=== PATIENT | male | born 1935 | race Caucasian/White ===

== ENCOUNTER → 2016-10-06 | Outpatient (CLI) | payer BC ==
[~2016-10-06] MED LIST: ACET-1256 PO; ASPI81TA28 PO; ATOR-26 PO; AZIT250T PO; CLON0.5T3 PO; CLOP1TAB15 PO; CPR500 PO; CRG3125 PO; CRG625 PO; GLC/500 PO; LISI-461 PO; LISI-729 PO; LPT40 PO; NTRGSL/4 PO; OMEG10007 PO; PRS5 PO; SENN-61 PO; URX/10 PO
[2016-10-06 17:39] LABS: BASO % 0.3 %; BASO ABS # 0.02 K/uL (0-0.2); COMPLETE YES; EOS % 1.7 %; HEMATOCRIT 42.9 % (42-52); IG% 0.1 %; LYMPH % 32.3 %; LYMPH ABS # 2.43 K/uL (1.2-3.4); MEAN CELL VOLUME 95.3 fL (80-100); MEAN CORPUSCULAR HGB CONC 35.7 g/dl (32-36); MEAN PLATELET VOLUME 9.8 fL (7.4-10.4); MONO % 6.1 %; NEUT % 59.5 %; PLATELET COUNT 161 K/uL (130-400); WHITE BLOOD COUNT 7.53 K/uL (4.8-10.8)
[2016-10-06 18:00] LABS: ALT/SGPT 18 U/L (12-78); BLOOD UREA NITROGEN 25 mg/dl (7-18); CALCIUM 9.1 mg/dl (8.5-10.1); CARBON DIOXIDE 25 mmol/L (21-32); CHLORIDE 106 mmol/L (98-107); GLUCOSE 154 mg/dl (70-99); SODIUM 142 mmol/L (136-145)
[2016-10-06 18:08] LABS: ALB/GLOB RATIO 1.1 (0.9-2); ALKALINE PHOSPHATASE 102 U/L (45-117); AST/SGOT 15 U/L (15-37); PREALBUMIN 17.7 mg/dl (20-40)
[2016-10-07 05:58] LABS: ESTIMATED AVERAGE GLUCOSE 166 mg/dl; HA1C FLAG Normal (Normal)
--- NOTE | 2016-10-12 10:32 | CODING QUERY MEDICAL NECESSITY ---
SUPPORTING DIAGNOSIS NEEDED A supporting diagnosis is required for the test/procedure performed on this patient in order for us to be reimbursed by the patient's insurance. Please provide a supporting diagnosis for the following test/procedure listed below next to the test name along with your signature. *If there is no additional diagnosis for this patient that would support the following test/procedure please document that below next to the test/procedure. Test(s)/Procedure(s) that require a supporting diagnosis: * VITAMIN D 25-HYDROXY DIAGNOSIS: * VITAMIN B-12 LEVEL DIAGNOSIS: * DOS: 10/06/16 Provider Signature: Date: Thank you [facility] Information Management Once completed, please kindly fax back to [phone] For questions please call [phone]
== END | disposition home or self-care (01) ==
LOC: C.LABPVFM 12:03
PROVIDERS: ATTEND Family Medicine
DX: R63.0 Anorexia (principal); E11.9 Type 2 diabetes mellitus without complications; R53.83 Other fatigue; E55.9 Vitamin D deficiency, unspecified

== ENCOUNTER 2016-11-12 15:31 | Emergency (ER) | payer BC ==
[~2016-11-12] VITALS: Ht 167.6 cm; Wt 73.0 kg
[~2016-11-12 15:31] MED LIST changes: -ACET-1256 PO; -ATOR-26 PO; -AZIT250T PO; -CLON0.5T3 PO; -CLOP1TAB15 PO; -CPR500 PO; -CRG3125 PO; -LISI-729 PO; -LPT40 PO; -PRS5 PO; -SENN-61 PO; -URX/10 PO
[2016-11-12 15:34] VITALS: TEMP 37; Ht 167.6 cm; Wt 73.0 kg
[2016-11-12] MEDS ORDERED: SODIUM CHLORIDE 0.9% 500ML 500 ML IV STA (16:21)
[2016-11-12] MEDS ORDERED: URX/10 PO (16:31)
[2016-11-12 16:54] LABS: BASO % 0.3 %; BASO ABS # 0.02 K/uL (0-0.2); COMPLETE YES; EOS % 2.4 %; HEMATOCRIT 44.9 % (42-52); IG% 0.1 %; LYMPH % 16.6 %; LYMPH ABS # 1.23 K/uL (1.2-3.4); MEAN CELL VOLUME 94.9 fL (80-100); MEAN CORPUSCULAR HEMOGLOBIN 34.5 pg (25-34); MEAN CORPUSCULAR HGB CONC 36.3 g/dl (32-36); MEAN PLATELET VOLUME 9.4 fL (7.4-10.4); MONO % 9.7 %; NEUT % 70.9 %; PLATELET COUNT 147 K/uL (130-400); RED BLOOD COUNT 4.73 M/uL (4.7-6.1); WHITE BLOOD COUNT 7.42 K/uL (4.8-10.8)
[2016-11-12 17:03] LABS: PARTIAL THROMBOPLASTIN RATIO 1.1; PROTHROMBIN TIME (PATIENT) 10.7 SECONDS (9.0-12.0)
--- NOTE | 2016-11-12 17:06 | DIAGNOSTIC IMAGING REPORT ---
CHEST ONE VIEW PORTABLE CLINICAL HISTORY: cough eval for pnea dyspnea COMPARISON STUDY: 06/19/2016 FINDINGS: The bones soft tissues and hemidiaphragms are normal. The cardiomediastinal silhouette is normal. The lungs are clear. The pulmonary vasculature is normal. Prior median sternotomy IMPRESSION: Negative chest. Electronically signed by: Malik Stacy M.D. 11/12/2016 5:05 PM Dictated Date/Time: 11/12/2016 5:04 PM
[2016-11-12 17:18] LABS: BUN/CREATININE RATIO 33.2 (10-20); CALCIUM 8.8 mg/dl (8.5-10.1); CREATININE 0.89 mg/dl (0.60-1.40); POTASSIUM 3.7 mmol/L (3.5-5.1)
[2016-11-12 18:48] LABS: URINE APPEARANCE CLEAR (CLEAR); URINE COLOR DK YELLOW; URINE NITRITE NEG (NEG); URINE SPECIFIC GRAVITY 1.025 (1.000-1.030); UROBILINOGEN POS (NEG)
[2016-11-12 18:50] LABS: MANUAL MICROSCOPIC REQUIRED? NO; REVIEW REQ? NO
[2016-11-12 18:51] LABS: URINE BILIRUBIN NEG (NEG)
[2016-11-12 19:38] VITALS: BP 154/85; PULSE 73; O2SAT 96
[2016-11-12] MEDS ORDERED: AZITHROMYCIN 250 MG TAB PO STA (19:46)
[2016-11-12] MEDS ORDERED: AZIT250T PO (19:48)
--- NOTE | 2016-11-12 22:25 | EMERGENCY ROOM VISIT NOTE ---
History Report prepared by Kateryna: Joseph Anaya Under the Supervision of: Dr. Sachin Ulloa M.D. First contact with patient: 16:02 Chief Complaint: FLU LIKE SX Stated Complaint: FLU LIKE SYMPTOMS- PHYSICIAN REFERRED History of Present Illness The patient is an 80 year old male who presents to the Emergency Room with complaints of persistent flu-like symptoms for the past three days. His symptoms include cough, congestion, and rhinorrhea. His temperature was not recorded. He denies vomiting, chest pain, shortness of breath, or abdominal pain. The patient's notes that two days ago he was unable to get out of bed secondary to generalized weakness. He has some right-leg weakness chronically from a previous stroke. The patient was not urinating for two days. His states that he had not been eating or drinking anything for the past 2 days. Today he voided twice which only produced very small amounts of dark urine, as per his . The patient follows up with Dr. Smith in Urology, who referred him to the ED today. Source of History: patient, family Onset: three days ago Position: other (respiratory) Quality: other (flu-like symptoms) Timing: other (persistent) Associated Symptoms: + cough, + urinary symptoms, + weakness, No SOB, No abdominal pain, No chest pain, No fevers, No vomiting Review of Systems See HPI for pertinent positives & negatives. A total of 10 systems reviewed and were otherwise negative. Past Medical & Surgical Medical Problems: (1) CAD (coronary artery disease) (2) Chest pain (3) CVA (cerebral infarction) (4) Diabetes (5) Hyperlipidemia Family History Diabetes mellitus Hypertension Social History Smoking Status: Never Smoker Alcohol Use: none Drug Use: none Marital Status: Housing Status: lives with family Occupation Status: retired Current/Historical Medications Scheduled Alfuzosin HCl (Alfuzosin HCl ER), 10 MG PO DAILY Aspirin (Aspirin Ec), 81 MG PO DAILY Azithromycin (Zithromax), 250 MG PO DAILY Carvedilol (Carvedilol), 6.25 MG PO BID Fish Oil ([place]-3), 1 CAP PO DAILY Lisinopril (Lisinopril), 10 MG PO DAILY Metformin Hcl (Glucophage), 500 MG PO DAILY Scheduled PRN Nitroglycerin (Nitrostat), 0.4 MG PO UD PRN for Chest Pain Allergies Coded Allergies: No Known Allergies (Verified , 11/12/16) Physical Exam Vital Signs Date Time Temp Pulse Resp B/P Pulse Ox O2 Delivery O2 Flow Rate FiO2 11/12/16 19:38 73 16 154/85 96 Room Air 11/12/16 16:51 69 16 177/93 97 Room Air 11/12/16 15:52 72 11/12/16 15:34 37.0 88 18 175/95 98 Room Air Physical Exam Constitutional: Vital signs reviewed. Eyes: Pupils are equal round reactive to light. Conjunctiva are noninjected. ENT: Pharynx is clear without erythema or exudate. Mucous membranes are dry. Neck supple without meningeal signs. Respiratory: Clear to auscultation bilaterally. Breath sounds are equal bilaterally. Cardiovascular: Regular rate and rhythm. No rubs or gallops. GI: Soft, nondistended and nontender. Bowel sounds are present. Musculoskeletal: No peripheral edema. No lower extremity tenderness. Integumentary: No cyanosis. Neurological: The patient is awake and alert. Psychiatric: Normal affect. Medical Decision & Procedures ER Provider Diagnostic Interpretation: X-ray results as stated below per interpretation by me and the radiologist: CHEST ONE VIEW PORTABLE CLINICAL HISTORY: cough eval for pnea dyspnea COMPARISON STUDY: 06/19/2016 FINDINGS: The bones soft tissues and hemidiaphragms are normal. The cardiomediastinal silhouette is normal. The lungs are clear. The pulmonary vasculature is normal. Prior median sternotomy IMPRESSION: Negative chest. Electronically signed by: Malik Stacy M.D. 11/12/2016 5:05 PM Dictated Date/Time: 11/12/2016 5:04 PM Laboratory Results 11/12/16 16:35 Red Blood Count 4.73, Mean Corpuscular Volume 94.9, Mean Corpuscular Hemoglobin 34.5, Mean Corpuscular Hemoglobin Concent 36.3, Mean Platelet Volume 9.4, Neutrophils (%) (Auto) 70.9, Lymphocytes (%) (Auto) 16.6, Monocytes (%) (Auto) 9.7, Eosinophils (%) (Auto) 2.4, Basophils (%) (Auto) 0.3, Neutrophils # (Auto) 5.26, Lymphocytes # (Auto) 1.23, Monocytes # (Auto) 0.72, Eosinophils # (Auto) 0.18, Basophils # (Auto) 0.02 11/12/16 16:35 Test 11/12/16 00:00 11/12/16 16:35 11/12/16 16:41 11/12/16 16:47 Urine Color DK YELLOW Urine Appearance CLEAR (CLEAR) Urine pH 6.0 (4.5-7.5) Urine Specific [place] 1.025 (1.000-1.030) Urine Protein 2+ (NEG) Urine Glucose (UA) 3+ (NEG) Urine Ketones 1+ (NEG) Urine Occult Blood NEG (NEG) Urine Nitrite NEG (NEG) Urine Bilirubin NEG (NEG) Urine Urobilinogen POS (NEG) Urine Leukocyte Esterase NEG (NEG) Urine WBC (Auto) 1-5 /hpf (0-5) Urine RBC (Auto) 0-4 /hpf (0-4) Urine Hyaline Casts (Auto) 1-5 /lpf (0-5) Urine Epithelial Cells (Auto) 10-20 /lpf (0-5) Urine Bacteria (Auto) NEG (NEG) White Blood Count 7.42 K/uL (4.8-10.8) Red Blood Count 4.73 M/uL (4.7-6.1) Hemoglobin 16.3 g/dL (14.0-18.0) Hematocrit 44.9 % (42-52) Mean Corpuscular Volume 94.9 fL (80-100) Mean Corpuscular Hemoglobin 34.5 pg (25-34) Mean Corpuscular Hemoglobin Concent 36.3 g/dl (32-36) Platelet Count 147 K/uL (130-400) Mean Platelet Volume 9.4 fL (7.4-10.4) Neutrophils (%) (Auto) 70.9 % Lymphocytes (%) (Auto) 16.6 % Monocytes (%) (Auto) 9.7 % Eosinophils (%) (Auto) 2.4 % Basophils (%) (Auto) 0.3 % Neutrophils # (Auto) 5.26 K/uL (1.4-6.5) Lymphocytes # (Auto) 1.23 K/uL (1.2-3.4) Monocytes # (Auto) 0.72 K/uL (0.11-0.59) Eosinophils # (Auto) 0.18 K/uL (0-0.5) Basophils # (Auto) 0.02 K/uL (0-0.2) RDW Standard Deviation 45.7 fL (36.4-46.3) RDW Coefficient of Variation 13.2 % (11.5-14.5) Immature Granulocyte % (Auto) 0.1 % Immature Granulocyte # (Auto) 0.01 K/uL (0.00-0.02) Prothrombin Time 10.7 SECONDS (9.0-12.0) Prothromb Time International Ratio 1.0 (0.9-1.1) Activated Partial Thromboplast Time 29.3 SECONDS (21.0-31.0) Partial Thromboplastin Ratio 1.1 Anion Gap 9.0 mmol/L (3-11) Est Creatinine Clear Calc Drug Dose 59.7 ml/min Estimated GFR () 93.6 Estimated GFR (Non- 80.8 BUN/Creatinine Ratio 33.2 (10-20) Calcium Level 8.8 mg/dl (8.5-10.1) Total Bilirubin 2.5 mg/dl (0.2-1) Direct Bilirubin 0.4 mg/dl (0-0.2) Aspartate Amino Transf (AST/SGOT) 20 U/L (15-37) Alanine Aminotransferase (ALT/SGPT) 22 U/L (12-78) Alkaline Phosphatase 85 U/L (45-117) Total Protein 7.7 gm/dl (6.4-8.2) Albumin 3.4 gm/dl (3.4-5.0) Influenza Type A Antigen Neg for Influ A (NEG) Influenza Type B Antigen Neg for Influ B (NEG) Bedside Troponin I 0.010 ng/ml (0-0.045) Bedside Lactic Acid Venous 1.09 mmol/L (0.90-1.70) Laboratory results as reviewed by me. Medications Administered Medications (Trade) Dose Ordered Sig/Hiram Route Start Time Stop Time Status Last Admin Dose Admin Sodium Chloride (Nss 500ml) 500 ml @ 999 mls/hr Q31M STAT IV 11/12/16 16:21 11/12/16 16:51 DC 11/12/16 17:04 999 MLS/HR Azithromycin (Zithromax Tab) 500 mg NOW STAT PO 11/12/16 19:46 11/12/16 19:47 DC 11/12/16 20:01 500 MG ECG Indication: weakness Rate (beats per minute): 67 Rhythm: normal sinus Findings: no acute ischemic change, no ectopy ED Course 160: The patient was evaluated in room B3b. A complete history and physical exam was performed. 162: NSS 500 ml @ 999 mls/hr. 172: Discussed the test results with him and his family. He notes that he has not had anything to eat or drink today. 1819: Wheatley catheter placed, draining 800 CCs of dark urine. He is eating dinner now. 1944: The patient feels much better after eating and drinking. I discussed the results with him. 1945: Zithromax 500 mg PO. Medical Decision This is an 80-year-old female who presents with weakness, decreased urination and flulike symptoms. Differential diagnosis includes acute renal failure, dehydration, urinary retention, metabolic derangement, pneumonia, influenza, cardiac. I did perform a limited focused review of portions of the patient's old chart on the electronic medical record. The patient has had no recent pertinent visits to this hospital. I did evaluate the patient as noted above. The patient is presenting with flulike symptoms. He also has not been urinating for the past 2 days normally. His urine is dark but he denies any abdominal pain or pressure. He does state that he has not really been eating anything or drinking water for the past 2 days which is likely contributing to his weakness if not causing it. IV access was established. The patient was placed on a continuous residential worker. I did treat her with normal saline IV. I did order and personally review the patient's 12-lead EKG and chest x-ray as described above. There is no evidence of acute ischemia on his 12-lead EKG. His chest x-ray is negative for pneumonia. I did order and review the patient's blood work as noted in the electronic medical record. Renal function is normal. He is not anemic. His white blood cell count is not elevated. Bilirubin is slightly elevated but this has been elevated in the past. The patient was unable to urinate for us here. A bladder scan was done and he had over 700 mL of urine. A Wheatley catheter was placed and he drained approximately 800 mL of dark urine. Urinalysis does not show signs of infection. The patient was given a meal here. He ate dinner and said he felt much better. He does feel well enough to go home. I did recommend he follow up very closely with his doctor as well as his urologist for further care and evaluation. He was given return instructions as outlined below. He was given a leg bag for the Wheatley. I did treat him with Zithromax for his bronchitis. He was given a prescription for Zithromax. Impression Primary Impression: Generalized weakness Additional Impressions: Dehydration Urinary retention Bronchitis Scribe Attestation The scribe's documentation has been prepared under my direct and personally reviewed by me in its entirety. I confirm that the note above accurately reflects all work, treatment, procedures, and medical decision making performed by me. Departure Information Dispostion Home / Self-Care Prescriptions Azithromycin (Zithromax) 250 Mg Tab 250 MG PO DAILY, #4 TAB Prov: Sachin Ulloa M.D. 11/12/16 Referrals Juventino Spencer M.D. (PCP) Forms HOME CARE DOCUMENTATION FORM, IMPORTANT VISIT INFORMATION Patient Instructions Dehydration, ED Bronchitis Abx Tx, ED Retention Urinary Male, My [facility] Additional Instructions You have been examined and treated today on an emergency basis only. This is not a substitute for, or an effort to provide, complete comprehensive medical care. It is impossible to recognize and treat all injuries or illnesses in a single emergency department visit. It is therefore important that you follow up closely with your physician and urologist next week. Call as soon as possible for an appointment. Return for worsening symptoms or if you develop fever, vomiting, chest pain, shortness of breath, abdominal pain, back pain or any other concerning symptoms. Problem Qualifiers
== END 2016-11-12 20:05 | disposition home or self-care (01) ==
LOC: C.EDB 15:32
DX: R53.1 Weakness (principal); E86.0 Dehydration; R33.9 Retention of urine, unspecified; J40 Bronchitis, not specified as acute or chronic; I25.10 Atherosclerotic heart disease of native coronary artery without angina pectoris; E78.5 Hyperlipidemia, unspecified; E11.9 Type 2 diabetes mellitus without complications; Z86.73 Personal history of transient ischemic attack (TIA), and cerebral infarction without residual deficits; Z79.82 Long term (current) use of aspirin; Z79.84 Long term (current) use of oral hypoglycemic drugs; Z79.899 Other long term (current) drug therapy; Z83.3 Family history of diabetes mellitus; Z82.49 Family history of ischemic heart disease and other diseases of the circulatory system

== ENCOUNTER 2016-12-14 22:08 | Inpatient (IN) | payer BC, OTHER ==
[~2016-12-14] VITALS: Ht 182.9 cm; Wt 72.0 kg
[~2016-12-14 22:08] MED LIST changes: +AZIT250T PO; +URX/10 PO
[2016-12-14] MEDS ORDERED: SODIUM CHLORIDE 0.9% 1000ML 1,000 ML IV STA (23:12)
[2016-12-14] MEDS ORDERED: SODIUM CHLORIDE 0.9% 500ML 500 ML IV STA (23:12)
--- NOTE | 2016-12-14 23:21 | EMERGENCY ROOM VISIT NOTE ---
History Report prepared by Kateryna: William Rogers Under the Supervision of: Dr. Chuyita Childs M.D. First contact with patient: 23:05 Chief Complaint: WEAKNESS Stated Complaint: COULD NOT FOCUS,VERY WEAK Nursing Triage Summary: spouse reports pt has been increasingly tired and weak all day, decreased po intake for several days , denies NVD , pt able to move all extremities , speech clear and appropriate History of Present Illness The patient is an 80 year old male who presents to the Emergency Room due to a worsening altered mental status that the family first started to notice yesterday, one day prior to arrival. The patient states that he "thought he was having a stroke" today because he was not able to focus on anything. Per the patient's the patient did not sleep last night and was becoming increasingly weak and confused throughout the day today. At 1400 this afternoon the patient sat down at the table to eat and was not able to locate the plate and feed himself. The patient's son also notes noticing that he was not able to get around the house as he normally would. The patient normally walks with a walker, but he was having worsening difficulty ambulating today and was becoming confused trying to make his way around the rooms of his home. His speech did seem clear for most of the day. He never made any complaints of chest pain or shortness of breath. The patient had a prior stroke in 2014 which debilitated his right side. He is also a type II diabetic. He currently has a Wheatley catheter placed. 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 A total of 10 systems reviewed and were otherwise negative. Past Medical & Surgical Medical Problems: (1) CAD (coronary artery disease) (2) Chest pain (3) Confusion (4) CVA (cerebral infarction) (5) Diabetes (6) Hyperlipidemia Family History Diabetes mellitus Hypertension Social History Smoking Status: Never Smoker Alcohol Use: none Drug Use: none Marital Status: Housing Status: lives with family Occupation Status: retired Current/Historical Medications Scheduled Aspirin (Aspirin Ec), 81 MG PO DAILY Carvedilol (Carvedilol), 6.25 MG PO BID Finasteride (Finasteride), 5 MG PO DAILY Fish Oil ([place]-3), 1 CAP PO DAILY Lisinopril (Lisinopril), 10 MG PO DAILY Metformin Hcl (Glucophage), 500 MG PO DAILY Scheduled PRN Nitroglycerin (Nitrostat), 0.4 MG PO UD PRN for Chest Pain Allergies Coded Allergies: No Known Allergies (Verified , 12/15/16) Physical Exam Vital Signs Date Time Temp Pulse Resp B/P Pulse Ox O2 Delivery O2 Flow Rate FiO2 12/15/16 01:18 53 14 152/68 100 Room Air 12/14/16 23:30 56 23 170/83 96 Room Air 12/14/16 22:31 63 12/14/16 22:13 36.4 72 19 149/82 97 Room Air Physical Exam Vital signs reviewed. General: Well-appearing elderly male, in no significant distress. Minimally verbal but responsive, follows commands. HEENT: No scleral icterus, PERRLA, neck supple. Atraumatic. Cardiovascular: Systolic ejection murmur Regular rate and rhythm, no extra sounds. Pulmonary: Clear to auscultation bilaterally, normal work of breathing. Abdomen: Soft, nontender, nondistended, positive bowel sounds. Musculoskeletal: Atraumatic, no peripheral edema. Weakness or right lower extremity. Neurologic: Patient awake alert and oriented x 3, full strength in all 4 extremities. Cranial nerves 2 through 12 grossly intact. Skin: Warm, dry, no rash : Wheatley catheter in place. Medical Decision & Procedures ER Provider Diagnostic Interpretation: Radiology results as stated below per my review and radiologist interpretation: CT HEAD: No acute intracranial process. Involutional changes, small vessel disease and multifocal regions or encephalomalacia from prior insults. Radiologist: Loy Brower M.D. Study Ready at 00:16 and initial results transmitted at 00:20. CHEST X-RAY: Post surgical changes, no consolidation, no free air. Laboratory Results Test 12/14/16 22:30 12/14/16 23:28 12/14/16 23:44 12/15/16 00:30 Immature Granulocyte % (Auto) 0.1 % White Blood Count 8.79 K/uL (4.8-10.8) Red Blood Count 4.48 M/uL (4.7-6.1) Hemoglobin 15.2 g/dL (14.0-18.0) Hematocrit 42.7 % (42-52) Mean Corpuscular Volume 95.3 fL (80-100) Mean Corpuscular Hemoglobin 33.9 pg (25-34) Mean Corpuscular Hemoglobin Concent 35.6 g/dl (32-36) Platelet Count 155 K/uL (130-400) Mean Platelet Volume 8.7 fL (7.4-10.4) Neutrophils (%) (Auto) 73.9 % Lymphocytes (%) (Auto) 17.9 % Monocytes (%) (Auto) 5.3 % Eosinophils (%) (Auto) 2.6 % Basophils (%) (Auto) 0.2 % Neutrophils # (Auto) 6.49 K/uL (1.4-6.5) Lymphocytes # (Auto) 1.57 K/uL (1.2-3.4) Monocytes # (Auto) 0.47 K/uL (0.11-0.59) Eosinophils # (Auto) 0.23 K/uL (0-0.5) Basophils # (Auto) 0.02 K/uL (0-0.2) Immature Granulocyte # (Auto) 0.01 K/uL (0.00-0.02) Prothrombin Time 10.5 SECONDS (9.0-12.0) Prothromb Time International Ratio 1.0 (0.9-1.1) Activated Partial Thromboplast Time 28.2 SECONDS (21.0-31.0) Partial Thromboplastin Ratio 1.1 Magnesium Level 2.2 mg/dl (1.8-2.4) Total Bilirubin 1.5 mg/dl (0.2-1) Direct Bilirubin 0.2 mg/dl (0-0.2) Aspartate Amino Transf (AST/SGOT) 14 U/L (15-37) Alanine Aminotransferase (ALT/SGPT) 20 U/L (12-78) Alkaline Phosphatase 111 U/L (45-117) Total Creatine Kinase 79 U/L (39-308) Creatine Kinase MB 1.5 ng/ml (0.5-3.6) Creatine Kinase MB Ratio 1.9 (0-3.0) Total Protein 7.4 gm/dl (6.4-8.2) Albumin 3.5 gm/dl (3.4-5.0) Bedside Troponin I 0.000 ng/ml (0-0.045) Bedside Lactic Acid Venous 1.23 mmol/L (0.90-1.70) Urine Color DK YELLOW Urine Appearance TURBID (CLEAR) Urine pH 5.5 (4.5-7.5) Urine Specific [place] 1.023 (1.000-1.030) Urine Protein 2+ (NEG) Urine Glucose (UA) 1+ (NEG) Urine Ketones TRACE (NEG) Urine Occult Blood 3+ (NEG) Urine Nitrite POS (NEG) Urine Bilirubin NEG (NEG) Urine Urobilinogen NEG (NEG) Urine Leukocyte Esterase LARGE (NEG) Urine WBC (Auto) >30 /hpf (0-5) Urine RBC (Auto) 10-30 /hpf (0-4) Urine Hyaline Casts (Auto) 1-5 /lpf (0-5) Urine Epithelial Cells (Auto) 5-10 /lpf (0-5) Urine Bacteria (Auto) 3+ (NEG) Urine Yeast (Auto) (NONE PRSENT) Laboratory results per my review. Medications Administered Medications (Trade) Dose Ordered Sig/Hiram Route Start Time Stop Time Status Last Admin Dose Admin Sodium Chloride 500 ml @ 999 mls/hr Q31M STAT IV 12/14/16 23:12 12/14/16 23:42 DC 12/14/16 23:39 999 MLS/HR Sodium Chloride (Nss 1000ml) 1,000 ml @ 125 mls/hr Q8H STAT IV 12/14/16 23:12 12/15/16 03:03 DC 12/14/16 23:39 125 MLS/HR Piperacillin Sod/ Tazobactam Sod (Zosyn Iv) 4.5 gm NOW STAT IV 12/15/16 01:17 12/15/16 01:18 DC 12/15/16 01:21 4.5 GM ECG Indication: altered mental status Rate (beats per minute): 64 Rhythm: normal sinus Findings: no acute ischemic change, no ectopy, other (Poor Quality baseline) ED Course 2307: Past medical records reviewed. The patient was evaluated in room B2. A complete history and physical examination was performed. 2312: Ordered Sodium Chloride 1000 mL @ 125 mL/hr IV, Sodium Chloride 500 mL @ 999 mL/hr IV. 0117: Ordered Zosyn 4.5 gm IV. 0126: I placed a page for the [facility] Hospitalist at this time. 0210: I discussed the case with Dr. Aga [facility] at this time , he will evaluate the patient for further treatment. 0214: I checked on the patient at this time. He was doing well. Medical Decision Differential diagnosis: Etiologies such as metabolic, infection, hypoglycemia, electrolyte abnormalities , cardiac sources, intracerebral event, toxicologic, neurologic, as well as others were entertained. This patient was evaluated and appeared to be in no significant distress. IV access was obtained and laboratory work was drawn. The patient was placed on the vehicle monitor technician and found to be in a normal sinus rhythm. Patient's vital signs have remained stable. Laboratory work reveals a normal white blood cell count, normal renal function and a positive urinalysis. This will be sent for culture. Patient's lactate is normal. Head CT reveals old injury, no evidence of acute abnormality. Patient was medicated with IV Zosyn. Case was discussed with the hospitalist service. They will evaluate the patient for further management. Consults Time Called: 0126 Consulting Physician: Dr. Aga [facility] Returned Call: 0210 I discussed the case with Dr. Aga [facility] at this time, he will evaluate the patient for further treatment. Impression Primary Impression: Altered mental status Additional Impression: UTI (urinary tract infection) Scribe Attestation The scribe's documentation has been prepared under my direction and personally reviewed by me in its entirety. I confirm that the note above accurately reflects all work, treatment, procedures, and medical decision making performed by me. Departure Information Dispostion Being Evaluated By Hospitalist Referrals Juventino Spencer M.D. (PCP) Patient Instructions My [facility] Problem Qualifiers
[2016-12-14 23:23] LABS: BASO % 0.2 %; BASO ABS # 0.02 K/uL (0-0.2); COMPLETE YES; EOS % 2.6 %; HEMATOCRIT 42.7 % (42-52); IG% 0.1 %; LYMPH % 17.9 %; LYMPH ABS # 1.57 K/uL (1.2-3.4); MEAN CELL VOLUME 95.3 fL (80-100); MEAN CORPUSCULAR HEMOGLOBIN 33.9 pg (25-34); MEAN CORPUSCULAR HGB CONC 35.6 g/dl (32-36); MEAN PLATELET VOLUME 8.7 fL (7.4-10.4); MONO % 5.3 %; NEUT % 73.9 %; PLATELET COUNT 155 K/uL (130-400); RED BLOOD COUNT 4.48 M/uL (4.7-6.1); WHITE BLOOD COUNT 8.79 K/uL (4.8-10.8)
[2016-12-14 23:33] LABS: PARTIAL THROMBOPLASTIN RATIO 1.1; PROTHROMBIN TIME (PATIENT) 10.5 SECONDS (9.0-12.0)
[2016-12-14 23:35] LABS: BUN/CREATININE RATIO 24.6 (10-20); CALCIUM 9.1 mg/dl (8.5-10.1); CREATININE 1.1 mg/dl (0.60-1.40); MAGNESIUM 2.2 mg/dl (1.8-2.4); POTASSIUM 3.9 mmol/L (3.5-5.1)
[2016-12-14 23:40] LABS: CKMB/CK RATIO 1.9 (0-3.0)
[2016-12-15] VITALS (7 sets, daily range): BP systolic 96–179; BP diastolic 61–91; PULSE 56–64; TEMP 36.5–37.2; O2SAT 93–97; Ht 182.9 cm; Wt 72.0 kg
[2016-12-15 00:48] LABS: URINE APPEARANCE TURBID (CLEAR); URINE BILIRUBIN NEG (NEG); URINE COLOR DK YELLOW; URINE NITRITE POS (NEG); URINE PH 5.5 (4.5-7.5); URINE SPECIFIC GRAVITY 1.023 (1.000-1.030); UROBILINOGEN NEG (NEG); ZZURINE CULT IF INDIC CATH YES
[2016-12-15 01:02] LABS: MANUAL MICROSCOPIC REQUIRED? NO; REVIEW REQ? YES
[2016-12-15] MEDS ORDERED: PIPERACILLIN/TAZOBACTAM 4.5 GM/100ML D5W IV STA (01:17)
[2016-12-15] MEDS ORDERED: PRS5 PO (01:26)
--- NOTE | 2016-12-15 02:10 | History and Physical ---
History & Physical Date & Time of Service: Dec 15, 2016 at 02:09 Chief Complaint: Could Not Focus,Very Weak Primary Care Physician: Juventino Spencer M.D. History of Present Illness Source: patient, spouse 80-year-old male with past medical history of diabetes, hypertension, stroke in 2015, BPH , coronary artery disease presented with altered mental status since 1 day prior to arrival. His family was concerned that he was having a stroke as he seemed to be very weak and confused. Per his he had not slept well and had been more confused today. The patient complained of feeling very fatigued but denied any chest pain, shortness of breath, palpitations, dizziness, headache injury. He denied any dysuria, hematuria but he stated that he had increased frequency and was recently started on medication for an enlarged prostate. He denied any nausea, vomiting, abdominal pain, diarrhea, fevers or chills but had some back pain. Denied any history of kidney stones. He has a history of stroke in 2014 . Past Medical/Surgical History Medical Problems: (1) CAD (coronary artery disease) Status: Chronic (2) CVA (cerebral infarction) Status: Chronic (3) Diabetes Status: Chronic (4) Hyperlipidemia Status: Chronic Family History Diabetes mellitus Hypertension Social History Smoking Status: Never Smoker Drug Use: none Marital Status: Occupational Status: retired Immunizations History of Influenza Vaccine: Yes Influenza Vaccine Date: Jun 05, 2008 History of Tetanus Vaccine?: Yes Tetanus Immunization Date: Aug 05, 2005 History of Pneumococcal: Yes History of Hepatitis B Vaccine: No Multi-Drug Resistant Organisms History of MDRO: No Allergies Coded Allergies: No Known Allergies (Verified , 12/15/16) Home Medications Scheduled Aspirin (Aspirin Ec), 81 MG PO DAILY Carvedilol (Carvedilol), 6.25 MG PO BID Finasteride (Finasteride), 5 MG PO DAILY Fish Oil (Dema-3), 1 CAP PO DAILY Lisinopril (Lisinopril), 10 MG PO DAILY Metformin Hcl (Glucophage), 500 MG PO DAILY Scheduled PRN Nitroglycerin (Nitrostat), 0.4 MG PO UD PRN for Chest Pain Review of Systems Constitutional: + weakness, No chills, No fever Eyes: No worsening of vision ENT: No hearing loss Respiratory: No cough, No dyspnea on exertion, No shortness of breath Cardiovascular: No chest pain Abdomen: No constipation, No diarrhea, No nausea, No pain, No vomiting Musculoskeletal: No swelling Genitourinary - Male: + urinary frequency, No dysuria, No hematuria Neurologic: No memory loss Psychiatric: No depression symptoms Physical Exam Vital Signs Date Time Temp Pulse Resp B/P Pulse Ox O2 Delivery O2 Flow Rate FiO2 12/15/16 02:08 65 12/15/16 01:18 53 14 152/68 100 Room Air 12/14/16 23:30 56 23 170/83 96 Room Air 12/14/16 22:31 63 12/14/16 22:13 36.4 72 19 149/82 97 Room Air General Appearance: WD/WN, no apparent distress Head: normocephalic Eyes: normal inspection ENT: hearing grossly normal Neck: supple Respiratory/Chest: chest non-tender, lungs clear, normal breath sounds, no respiratory distress, no accessory muscle use Cardiovascular: regular rate, rhythm, + systolic murmur Abdomen/GI: normal bowel sounds, soft, + tenderness (suprapubic) Back: no CVA tenderness Extremities/Musculoskelatal: no pedal edema, normal range of motion Neurologic/Psych: alert, normal mood/affect, oriented x 3 Skin: normal color Diagnostics Laboratory Results Results Past 24 Hours Test 12/14/16 22:30 12/14/16 22:43 12/14/16 23:23 12/14/16 23:28 Range/Units White Blood Count 8.79 4.8-10.8 K/uL Red Blood Count 4.48 4.7-6.1 M/uL Hemoglobin 15.2 14.0-18.0 g/dL Hematocrit 42.7 42-52 % Mean Corpuscular Volume 95.3 80-100 fL Mean Corpuscular Hemoglobin 33.9 25-34 pg Mean Corpuscular Hemoglobin Concent 35.6 32-36 g/dl Platelet Count 155 130-400 K/uL Mean Platelet Volume 8.7 7.4-10.4 fL Neutrophils (%) (Auto) 73.9 % Lymphocytes (%) (Auto) 17.9 % Monocytes (%) (Auto) 5.3 % Eosinophils (%) (Auto) 2.6 % Basophils (%) (Auto) 0.2 % Neutrophils # (Auto) 6.49 1.4-6.5 K/uL Lymphocytes # (Auto) 1.57 1.2-3.4 K/uL Monocytes # (Auto) 0.47 0.11-0.59 K/uL Eosinophils # (Auto) 0.23 0-0.5 K/uL Basophils # (Auto) 0.02 0-0.2 K/uL RDW Standard Deviation 47.2 36.4-46.3 fL RDW Coefficient of Variation 13.6 11.5-14.5 % Immature Granulocyte % (Auto) 0.1 % Immature Granulocyte # (Auto) 0.01 0.00-0.02 K/uL Prothrombin Time 10.5 9.0-12.0 SECONDS Prothromb Time International Ratio 1.0 0.9-1.1 Activated Partial Thromboplast Time 28.2 21.0-31.0 SECONDS Partial Thromboplastin Ratio 1.1 Sodium Level 141 136-145 mmol/L Potassium Level 3.9 3.5-5.1 mmol/L Chloride Level 105 98-107 mmol/L Carbon Dioxide Level 29 21-32 mmol/L Anion Gap 7.0 3-11 mmol/L Blood Urea Nitrogen 27 7-18 mg/dl Creatinine 1.10 0.60-1.40 mg/dl Est Creatinine Clear Calc Drug Dose 48.3 ml/min Estimated GFR () 73.1 Estimated GFR (Non- 63.1 BUN/Creatinine Ratio 24.6 10-20 Random Glucose 223 70-99 mg/dl Calcium Level 9.1 8.5-10.1 mg/dl Magnesium Level 2.2 1.8-2.4 mg/dl Total Bilirubin 1.5 0.2-1 mg/dl Direct Bilirubin 0.2 0-0.2 mg/dl Aspartate Amino Transf (AST/SGOT) 14 15-37 U/L Alanine Aminotransferase (ALT/SGPT) 20 12-78 U/L Alkaline Phosphatase 111 45-117 U/L Total Creatine Kinase 79 39-308 U/L Creatine Kinase MB 1.5 0.5-3.6 ng/ml Creatine Kinase MB Ratio 1.9 0-3.0 Total Protein 7.4 6.4-8.2 gm/dl Albumin 3.5 3.4-5.0 gm/dl Bedside Glucose 207 181 70-99 mg/dl Bedside Troponin I 0.000 0-0.045 ng/ml Test 12/14/16 23:44 4/19/17 00:30 Range/Units Bedside Lactic Acid Venous 1.23 0.90-1.70 mmol/L Urine Color DK YELLOW Urine Appearance TURBID CLEAR Urine pH 5.5 4.5-7.5 Urine Specific [place] 1.023 1.000-1.030 Urine Protein 2+ NEG Urine Glucose (UA) 1+ NEG Urine Ketones TRACE NEG Urine Occult Blood 3+ NEG Urine Nitrite POS NEG Urine Bilirubin NEG NEG Urine Urobilinogen NEG NEG Urine Leukocyte Esterase LARGE NEG Urine WBC (Auto) >30 0-5 /hpf Urine RBC (Auto) 10-30 0-4 /hpf Urine Hyaline Casts (Auto) 1-5 0-5 /lpf Urine Epithelial Cells (Auto) 5-10 0-5 /lpf Urine Bacteria (Auto) 3+ NEG Urine Yeast (Auto) NONE PRSENT Microbiology Results 12/14/16 Blood Culture, Received Pending 12/14/16 Blood Culture, Received Pending 12/15/16 Urine Culture, Received Pending Diagnostic Radiology Head CT: No acute intracranial process. Involutional changes, small vessel disease and multifocal regions or encephalomalacia from prior insults. Radiologist: Loy Brower M.D. EKG Normal sinus rhythm, 64 bpm Impression Assessment and Plan 80-year-old male with past medical history of diabetes, hypertension, stroke in 2015, BPH , coronary artery disease presented with altered mental status since 1 day prior to arrival. Altered mental status: Likely secondary to urinary tract infection -Head CT: Negative for any acute changes -Electrolytes within normal limits - Blood sugar slightly elevated at 181 - EKG within normal limits, troponin negative - UA positive for 3+ occult blood, positive nitrite, large leuk esterase and 3+ bacteria Completed UTI -UA positive for 3+ occult blood, positive nitrite, large leuk esterase and 3+ bacteria -Urine culture, blood culture pending -Received Zosyn in the ER - IV Rocephin every 24 hours - Continue IV fluids Type 2 diabetes Hold metformin -Insulin sliding scale Hypertension -Continue lisinopril History of stroke/CAD Continue aspirin, carvedilol BPH -Continue finasteride Wheatley in place DVT prophylaxis -Lovenox Full code Disposition-admitted to [facility] Level of Care Med/Surg Advanced Directives Existing Living Will: No Resuscitation Status FULL RESUSCITATION VTE Prophylaxis VTE Risk Assessment Done? Y/N: Yes Risk Level: Moderate Given or contraindicated: Enoxaparin (Lovenox)SQ Resident Tracking Resident Involvement: Resident Care Provided Care Provided: Adult [facility] Medicine Assessment and Plan Attending Addendum: I have physically seen and examined this patient, have directed their medical care, have supervised the medical residents activities, and agree with the H&P as noted above, with the following changes: NONE
[2016-12-15] MEDS ORDERED: ALUMINUM/MAGNESIUM/SIMETH (MAALOX MAX) 30 ML UDC PO PRN (02:15)
[2016-12-15] MEDS ORDERED: ONDANSETRON INJ 2 MG/ML 2 ML VIAL IV PRN (02:15)
[2016-12-15] MEDS ORDERED: POLYETHYLENE (MIRALAX) 17 GM PACK PO PRN (02:15)
[2016-12-15] MEDS ORDERED: ACETAMINOPHEN 325 MG TAB PO PRN (02:15)
[2016-12-15] MEDS ORDERED: MAGNESIUM HYDROXIDE SUSP 30 ML UDC PO PRN (02:15)
[2016-12-15] MEDS: SODIUM CHLORIDE 0.9% 1000ML 1,000 ML IV SCH ×3 (03:28→19:37)
[2016-12-15] MEDS ORDERED: GLUCAGON FOR INJ 1 MG VIAL SQ PRN (04:00)
[2016-12-15] MEDS ORDERED: GLUCOSE 40% GEL 15 GM TUBE PO PRN (04:00)
[2016-12-15] MEDS ORDERED: DEXTROSE 50% 50 ML SYR IV PRN (04:00)
[2016-12-15] MEDS ORDERED: GLUCOSE 10 TABS/TUBE PO PRN (04:00)
[2016-12-15] MEDS: CEFTRIAXONE SOD INJ 1 GM in DEXTROSE 5% ADD-VANTAGE 50ML 50 ML IV SCH (04:22)
[2016-12-15] MEDS: INSULIN ASPART 100 UNITS/ML 3 ML PEN SC SCH ×4 (06:30→21:00)
--- NOTE | 2016-12-15 06:36 | DIAGNOSTIC IMAGING REPORT ---
CT HEAD WITHOUT CONTRAST (CT) CLINICAL HISTORY: Acute change in mental status. Weakness. COMPARISON STUDY: 06/19/2016 TECHNIQUE: Axial CT of the brain is performed from the vertex to the skull base. IV contrast was not administered for this examination. CT DOSE: 537.48 mGy.cm FINDINGS: No intra or extra-axial mass lesions are visualized. There is no CT evidence of acute cortical infarction. There is no evidence of midline shift. There is no acute hemorrhage. No calvarial fractures are visualized. There are patchy white matter hypodensities likely on a small vessel basis. There is a right frontal lobe infarct which has developed since the preceding study. This does not appear acute. Since the prior study, the patient has also developed a left occipital infarct. Again this does not appear acute. There is no evidence of pathologic ventricular dilatation. There is no evidence of acute sinusitis IMPRESSION: 1. Chronic bilateral infarcts which have appeared since the preceding study 2. No acute intracranial findings Electronically signed by: Jeb Joshua M.D. 12/15/2016 6:33 AM Dictated Date/Time: 12/15/2016 6:31 AM
--- NOTE | 2016-12-15 07:39 | DIAGNOSTIC IMAGING REPORT ---
CHEST ONE VIEW PORTABLE HISTORY: Altered mental status. COMPARISON: Chest 11/12/2016. FINDINGS: No focal lung consolidations to suggest pneumonia. No evidence for pulmonary edema. No pleural effusions. No pneumothorax. The heart is stable in size. Mildly tortuous thoracic aorta, unchanged. There are poststernotomy changes. IMPRESSION: No significant change compared to the prior study. No acute process. Electronically signed by: Markie Birmingham M.D. 12/15/2016 7:37 AM Dictated Date/Time: 12/15/2016 7:36 AM
[2016-12-15 07:57] LABS: HEMATOCRIT 38.1 % (42-52); MEAN CELL VOLUME 94.5 fL (80-100); MEAN CORPUSCULAR HGB CONC 34.9 g/dl (32-36); MEAN PLATELET VOLUME 8.2 fL (7.4-10.4); PLATELET COUNT 137 K/uL (130-400); RED BLOOD COUNT 4.03 M/uL (4.7-6.1); WHITE BLOOD COUNT 8.42 K/uL (4.8-10.8)
[2016-12-15 08:20] LABS: CALCIUM 8.3 mg/dl (8.5-10.1)
[2016-12-15] MEDS: ENOXAPARIN 40 MG/0.4 ML SYR SQ SCH (08:32)
[2016-12-15] MEDS: LISINOPRIL 10 MG TAB PO SCH (08:33)
[2016-12-15] MEDS: FINASTERIDE 5 MG TAB PO SCH (08:33)
[2016-12-15] MEDS: ASPIRIN 81 MG ECTAB PO SCH (08:34)
[2016-12-15] MEDS: CARVEDILOL 6.25 MG TAB PO SCH ×2 (08:34→19:42)
[2016-12-15 09:09] LABS: CREATININE 0.84 mg/dl (0.60-1.40); POTASSIUM 3.3 mmol/L (3.5-5.1)
--- NOTE | 2016-12-15 11:26 | Hospitalist Progress Note ---
Hospitalist Progress Note Date of Service Dec 15, 2016. (Jocelyn Perez ., PA-C) Subjective Pt evaluation today including: conversation w/ patient, physical exam, chart review, lab review, review of studies, review of inpatient medication list Voiding: ferguson catheter in place Patient states he is feeling well. He admits to confusion at admission. He is alert/oriented x3. He states he has confusion at baseline, but has been worsening over the last week or so. Patient denies any fever, chills, sweats, lightheadedness, dizziness, vision changes, CP, palpitations, edema, SOB, wheezing, cough, abdominal pain, nausea, vomiting, diarrhea, urinary symptoms, melena, numbness/tingling, weakness, muscle/joint pain, anxiety/depression, active bleeding, or new skin discoloration/changes. Spoke w/ , patient is currently still confused. She denies confusion at baseline- pt became acutely confused last PM. Has indwelling Ferguson- Patient is following w/ Dr. Tee- scheduled follow-up the beginning of December to d/c Dioni. (Jocelyn Perez ., PA-C) Medications Current Inpatient Medications Medications (Trade) Dose Ordered Sig/Hiram Route Start Time Stop Time Status Last Admin Dose Admin Enoxaparin Sodium (Lovenox Inj) 40 mg Q24H SQ 12/15/16 09:00 01/14/17 08:59 12/15/16 08:32 40 MG Acetaminophen (Tylenol Tab) 650 mg Q4H PRN PO 12/15/16 02:15 01/14/17 02:14 Al Hydrox/Mg Hydrox/Simethicone (Maalox Max Susp) 15 ml Q4H PRN PO 12/15/16 02:15 01/14/17 02:14 Magnesium Hydroxide (Milk Of Magnesia Susp) 30 ml Q6H PRN PO 12/15/16 02:15 01/14/17 02:14 Polyethylene (Miralax Powder Packet) 17 gm DAILY PRN PO 12/15/16 02:15 01/14/17 02:14 Ondansetron HCl (Zofran Inj) 4 mg Q6H PRN IV 12/15/16 02:15 01/14/17 02:14 Aspirin (Ecotrin Tab) 81 mg DAILY PO 12/15/16 08:00 01/14/17 08:59 12/15/16 08:34 81 MG Carvedilol (Coreg Tab) 6.25 mg BID PO 12/15/16 08:00 01/14/17 08:59 12/15/16 08:34 6.25 MG Finasteride (Proscar Tab) 5 mg DAILY PO 12/15/16 08:00 01/14/17 08:59 12/15/16 08:33 5 MG Lisinopril 10 mg 10 mg DAILY PO 12/15/16 08:00 01/14/17 08:59 12/15/16 08:33 10 MG Sodium Chloride 1,000 ml @ 125 mls/hr Q8H IV 12/15/16 03:00 01/14/17 02:59 12/15/16 10:42 125 MLS/HR Ceftriaxone Sodium/Dextrose (Rocephin Inj/ Dextrose Add-[place] 50ML) 50 ml @ 100 mls/hr Q24H IV 12/15/16 04:00 12/25/16 03:59 12/15/16 04:22 100 MLS/HR Insulin Aspart (novoLOG ASPART) SLIDING SCALE G... ACHS SC 12/15/16 06:30 01/14/17 06:29 Glucose (Glucose 40% Gel) 15-30 GRAMS 15 GRAMS... UD PRN PO 12/15/16 04:00 01/14/17 03:59 Glucose (Glucose Chew Tab) 4-8 Tablets 4 Tabl... UD PRN PO 12/15/16 04:00 01/14/17 03:59 Dextrose (Dextrose 50% 50ML Syringe) 25-50ML OF 50% DW IV FOR... UD PRN IV 12/15/16 04:00 01/14/17 03:59 Glucagon (Glucagon Inj) 1 mg UD PRN SQ 12/15/16 04:00 01/14/17 03:59 (Jocelyn Perez PA-C) Objective Vital Signs Date Time Temp Pulse Resp B/P Pulse Ox O2 Delivery O2 Flow Rate FiO2 12/15/16 08:30 62 12/15/16 07:06 36.5 58 18 170/78 97 Room Air 12/15/16 03:35 37.2 56 18 175/69 97 Room Air 12/15/16 02:44 50 22 155/83 97 12/15/16 02:29 50 22 155/83 97 Room Air 12/15/16 02:08 65 12/15/16 01:18 53 14 152/68 100 Room Air 12/14/16 23:30 56 23 170/83 96 Room Air 12/14/16 22:31 63 12/14/16 22:13 36.4 72 19 149/82 97 Room Air (Jocelyn Perez PA-C) Physical Exam General Appearance: no apparent distress Eyes: normal inspection, PERRL ENT: hearing grossly normal Neck: supple Respiratory/Chest: lungs clear, no respiratory distress, no accessory muscle use Cardiovascular: regular rate, rhythm, + systolic murmur Abdomen: normal bowel sounds, non tender, soft Extremities: no pedal edema, no calf tenderness Neurologic/Psychiatric: alert, normal mood/affect, oriented x 3 Skin: normal color, warm/dry, no rash (Jocelyn Perez, BETET-C) Laboratory Results Last 24 Hours Test 12/14/16 22:30 12/14/16 22:43 12/14/16 23:23 12/14/16 23:28 White Blood Count 8.79 K/uL Red Blood Count 4.48 M/uL Hemoglobin 15.2 g/dL Hematocrit 42.7 % Mean Corpuscular Volume 95.3 fL Mean Corpuscular Hemoglobin 33.9 pg Mean Corpuscular Hemoglobin Concent 35.6 g/dl Platelet Count 155 K/uL Mean Platelet Volume 8.7 fL Neutrophils (%) (Auto) 73.9 % Lymphocytes (%) (Auto) 17.9 % Monocytes (%) (Auto) 5.3 % Eosinophils (%) (Auto) 2.6 % Basophils (%) (Auto) 0.2 % Neutrophils # (Auto) 6.49 K/uL Lymphocytes # (Auto) 1.57 K/uL Monocytes # (Auto) 0.47 K/uL Eosinophils # (Auto) 0.23 K/uL Basophils # (Auto) 0.02 K/uL RDW Standard Deviation 47.2 fL RDW Coefficient of Variation 13.6 % Immature Granulocyte % (Auto) 0.1 % Immature Granulocyte # (Auto) 0.01 K/uL Prothrombin Time 10.5 SECONDS Prothromb Time International Ratio 1.0 Activated Partial Thromboplast Time 28.2 SECONDS Partial Thromboplastin Ratio 1.1 Sodium Level 141 mmol/L Potassium Level 3.9 mmol/L Chloride Level 105 mmol/L Carbon Dioxide Level 29 mmol/L Anion Gap 7.0 mmol/L Blood Urea Nitrogen 27 mg/dl Creatinine 1.10 mg/dl Est Creatinine Clear Calc Drug Dose 48.3 ml/min Estimated GFR () 73.1 Estimated GFR (Non- 63.1 BUN/Creatinine Ratio 24.6 Random Glucose 223 mg/dl Calcium Level 9.1 mg/dl Magnesium Level 2.2 mg/dl Total Bilirubin 1.5 mg/dl Direct Bilirubin 0.2 mg/dl Aspartate Amino Transf (AST/SGOT) 14 U/L Alanine Aminotransferase (ALT/SGPT) 20 U/L Alkaline Phosphatase 111 U/L Total Creatine Kinase 79 U/L Creatine Kinase MB 1.5 ng/ml Creatine Kinase MB Ratio 1.9 Total Protein 7.4 gm/dl Albumin 3.5 gm/dl Bedside Glucose 207 mg/dl 181 mg/dl Bedside Troponin I 0.000 ng/ml Test 12/14/16 23:44 12/15/16 00:30 12/15/16 07:16 12/15/16 07:50 Bedside Lactic Acid Venous 1.23 mmol/L Urine Color DK YELLOW Urine Appearance TURBID Urine pH 5.5 Urine Specific [place] 1.023 Urine Protein 2+ Urine Glucose (UA) 1+ Urine Ketones TRACE Urine Occult Blood 3+ Urine Nitrite POS Urine Bilirubin NEG Urine Urobilinogen NEG Urine Leukocyte Esterase LARGE Urine WBC (Auto) >30 /hpf Urine RBC (Auto) 10-30 /hpf Urine Hyaline Casts (Auto) 1-5 /lpf Urine Epithelial Cells (Auto) 5-10 /lpf Urine Bacteria (Auto) 3+ Urine Yeast (Auto) Bedside Glucose 114 mg/dl White Blood Count 8.42 K/uL Red Blood Count 4.03 M/uL Hemoglobin 13.3 g/dL Hematocrit 38.1 % Mean Corpuscular Volume 94.5 fL Mean Corpuscular Hemoglobin 33.0 pg Mean Corpuscular Hemoglobin Concent 34.9 g/dl RDW Standard Deviation 46.7 fL RDW Coefficient of Variation 13.6 % Platelet Count 137 K/uL Mean Platelet Volume 8.2 fL Sodium Level 142 mmol/L Potassium Level 3.3 mmol/L Chloride Level 107 mmol/L Carbon Dioxide Level 27 mmol/L Anion Gap 8.0 mmol/L Blood Urea Nitrogen 24 mg/dl Creatinine 0.84 mg/dl Est Creatinine Clear Calc Drug Dose 71.4 ml/min Estimated GFR () 95.8 Estimated GFR (Non- 82.7 BUN/Creatinine Ratio 28.0 Random Glucose 117 mg/dl Calcium Level 8.3 mg/dl (Jocelyn Perez PA-C) Assessment and Plan 80-year-old male with past medical history of diabetes, hypertension, stroke in 2014, BPH , coronary artery disease presented with altered mental status since 1 day prior to arrival. AMS, likely secondary to UTI: - Admit to med/surg - Head CT- Negative for any acute changes - CXR- No acute process - EKG- unremarkable; troponin- negative - UA dirty, UCx pending - BCx pending - IVF UTI w/ indwelling Ferguson: - UCx pending - IV Zosyn x1 dose in ED; IV Rocephin Mild Hypokalemia at 3/3 on 12/15: - Replace with KCL 20 mEq supplement - Follow PRP, replace PRN T2DM: - Hold Metformin - BSG ACHS w/ sliding insulin scale Hypertension: Continue Lisinopril Hyperlipidemia: Continue Lipitor History of stroke/CAD: Continue ASA and Carvedilol BPH/Urinary retention w/ indwelling Ferguson: - Ferguson changed on 12/14 in ED - Continue Finasteride - Follows w/ Dr. Tee- scheduled f/u at the beginning of December to d/c Ferguson GI Prophylaxis: Maalox PRN, IV Zofran PRN, Milk of Mag and/or MiraLAX DVT prophylaxis: Lovenox Code Status: LEVEL I, FULL Dispo: From home, lives w/ . PT/OT evaluations (Jocelyn Perez .SILVINAC) PA Physician Supervision Note: I interviewed and examined the patient. Discussed with Jocelyn Perez PAC and agree with findings and plan as documented in the note. Any exceptions or clarifications are listed here: None PT was pleasant and oriented in conversation but upon more focused questions remains with delerium/metabolic encephalopathy vitals are stable lungs are clear car is regular ferguson cath remaind Metabolic encephalopathy associated with indwelling cath poa, continue rocephin , await sensitivities, supportive are and diabetic management PT/OT eval Documented By: Sachin Smallwood (Sachin Smallwood M.D.)
[2016-12-15] MEDS ORDERED: POTASSIUM CHLORIDE 20 MEQ TABCR PO ONE (11:30)
[2016-12-16] VITALS: O2SAT 93
[2016-12-16] MEDS: SODIUM CHLORIDE 0.9% 1000ML 1,000 ML IV SCH ×3 (03:00→20:32)
[2016-12-16] MEDS: CEFTRIAXONE SOD INJ 1 GM in DEXTROSE 5% ADD-VANTAGE 50ML 50 ML IV SCH (03:00)
[2016-12-16 06:40] LABS: BASO % 0.5 %; BASO ABS # 0.04 K/uL (0-0.2); COMPLETE YES; EOS % 2.2 %; IG% 0.1 %; LYMPH ABS # 2.53 K/uL (1.2-3.4); MEAN CELL VOLUME 94.8 fL (80-100); MEAN CORPUSCULAR HEMOGLOBIN 32.7 pg (25-34); MEAN CORPUSCULAR HGB CONC 34.5 g/dl (32-36); MEAN PLATELET VOLUME 8.3 fL (7.4-10.4); MONO % 6.4 %; NEUT % 57.8 %; PLATELET COUNT 142 K/uL (130-400); RED BLOOD COUNT 4.22 M/uL (4.7-6.1); WHITE BLOOD COUNT 7.67 K/uL (4.8-10.8)
[2016-12-16 07:25] LABS: BUN/CREATININE RATIO 17.9 (10-20); CALCIUM 8.6 mg/dl (8.5-10.1); CREATININE 0.79 mg/dl (0.60-1.40); POTASSIUM 3.5 mmol/L (3.5-5.1)
[2016-12-16 07:31] VITALS: BP 167/83; PULSE 50; TEMP 36.4; O2SAT 100
[2016-12-16] MEDS: CARVEDILOL 6.25 MG TAB PO SCH (08:00)
[2016-12-16] MEDS: ATORVASTATIN 40 MG TAB PO SCH (08:15)
[2016-12-16] MEDS: FINASTERIDE 5 MG TAB PO SCH (08:15)
[2016-12-16] MEDS: ASPIRIN 81 MG ECTAB PO SCH (08:16)
[2016-12-16] MEDS: LISINOPRIL 10 MG TAB PO SCH (08:16)
[2016-12-16] MEDS: ENOXAPARIN 40 MG/0.4 ML SYR SQ SCH (08:16)
[2016-12-16] MEDS: INSULIN ASPART 100 UNITS/ML 3 ML PEN SC SCH ×4 (09:34→20:30)
[2016-12-16 10:24] VITALS: BP 174/82; PULSE 57
[2016-12-16] MEDS ORDERED: HydrALAZINE HCL 20 MG/ML VIAL IV PRN (10:30)
[2016-12-16] MEDS ORDERED: CARVEDILOL 3.125 MG TAB PO ONE (11:00)
[2016-12-16 12:47] VITALS: BP 118/72
--- NOTE | 2016-12-16 13:55 | Progress Note ---
Subjective Date of Service: Dec 16, 2016. Subjective pt had significant sundowning last night and is a bit more confused today, at bedside and updated Problem List Medical Problems: (1) Acute chest pain Status: Acute (2) Altered mental status Status: Acute (3) UTI (urinary tract infection) Status: Acute Review of Systems Constitutional: + fatigue, + weakness, No chills, No fever Respiratory: No cough, No shortness of breath Cardiac: No chest pain, No edema Abdomen: No diarrhea, No nausea, No pain, No vomiting Neurologic: + balance problems, + memory loss, + weakness Psychiatric: + anhedonism, + depression symptoms Objective Vital Signs Date Time Temp Pulse Resp B/P Pulse Ox O2 Delivery O2 Flow Rate FiO2 12/16/16 12:47 118/72 12/16/16 10:24 57 174/82 12/16/16 07:31 36.4 50 16 167/83 100 Room Air 12/16/16 00:00 93 Room Air 0.0 12/15/16 23:54 36.8 64 16 179/91 97 Room Air 12/15/16 20:00 93 Room Air 0.0 12/15/16 19:48 63 16 96/61 93 Room Air 0.0 12/15/16 15:51 Room Air 12/15/16 14:53 36.9 63 18 145/73 95 Room Air Physical Exam General Appearance: WD/WN, + mild distress Eyes: PERRL, EOMI Neck: supple, no JVD Respiratory/Chest: chest non-tender, lungs clear, normal breath sounds Cardiovascular: regular rate, rhythm, no murmur Abdomen: normal bowel sounds, non tender, soft Neurologic/Psychiatric: alert, + disoriented Laboratory Results Last 24 Hours Test 12/15/16 16:29 12/15/16 20:02 12/16/16 06:29 12/16/16 07:38 Bedside Glucose 120 mg/dl 141 mg/dl 110 mg/dl White Blood Count 7.67 K/uL Red Blood Count 4.22 M/uL Hemoglobin 13.8 g/dL Hematocrit 40.0 % Mean Corpuscular Volume 94.8 fL Mean Corpuscular Hemoglobin 32.7 pg Mean Corpuscular Hemoglobin Concent 34.5 g/dl Platelet Count 142 K/uL Mean Platelet Volume 8.3 fL Neutrophils (%) (Auto) 57.8 % Lymphocytes (%) (Auto) 33.0 % Monocytes (%) (Auto) 6.4 % Eosinophils (%) (Auto) 2.2 % Basophils (%) (Auto) 0.5 % Neutrophils # (Auto) 4.43 K/uL Lymphocytes # (Auto) 2.53 K/uL Monocytes # (Auto) 0.49 K/uL Eosinophils # (Auto) 0.17 K/uL Basophils # (Auto) 0.04 K/uL RDW Standard Deviation 46.8 fL RDW Coefficient of Variation 13.5 % Immature Granulocyte % (Auto) 0.1 % Immature Granulocyte # (Auto) 0.01 K/uL Sodium Level 144 mmol/L Potassium Level 3.5 mmol/L Chloride Level 109 mmol/L Carbon Dioxide Level 26 mmol/L Anion Gap 9.0 mmol/L Blood Urea Nitrogen 14 mg/dl Creatinine 0.79 mg/dl Est Creatinine Clear Calc Drug Dose 75.9 ml/min Estimated GFR () 98.3 Estimated GFR (Non- 84.8 BUN/Creatinine Ratio 17.9 Random Glucose 113 mg/dl Calcium Level 8.6 mg/dl Test 12/16/16 11:59 Bedside Glucose 116 mg/dl Assessment and Plan 80-M with metabolic encephalopathy from uti poa with history of diabetes, hypertension, stroke in 2014, BPH , coronary artery disease metabolic encephalopathy secondary to UTI poa: -cultures pending not improving on ceftriaxone, change to cipro UTI w/ indwelling Wheatley this is a catheter associated uti, will change once treatment course complete:BPH/Urinary retention is the reason for indwelling Wheatley: Wheatley last changed on 12/[address] Tee- scheduled f/u at the beginning of December to d/c Wheatley DM:- Hold Metformin BSG ACHS w/ sliding insulin scale Hypertension: Lisinopril has some bradycardia, will reduce coreg and use hydralazine as backup, History of stroke/CAD: Continue ASA and Carvedilol DVT prophylaxis: Lovenox Code Status: LEVEL I, FULL Documented By: Sachin Smallwood
[2016-12-16] MEDS: CIPROFLOXACIN / D5W 400 MG in PREMIXED IN D5W 200 ML IV SCH (14:52)
[2016-12-16 15:21] VITALS: BP 132/65; PULSE 74; TEMP 36.7; O2SAT 94
[2016-12-16] MEDS: CARVEDILOL 3.125 MG TAB PO SCH (20:30)
[2016-12-17 00:40] VITALS: BP 143/81; PULSE 52; TEMP 36.7; O2SAT 99
[2016-12-17] MEDS: CIPROFLOXACIN / D5W 400 MG in PREMIXED IN D5W 200 ML IV SCH (02:09)
[2016-12-17 07:56] VITALS: BP 141/78; PULSE 57; TEMP 36.7; O2SAT 99
[2016-12-17] MEDS: CARVEDILOL 3.125 MG TAB PO SCH ×2 (08:00→08:02)
[2016-12-17] MEDS: SODIUM CHLORIDE 0.9% 1000ML 1,000 ML IV SCH ×2 (08:01→11:15)
[2016-12-17] MEDS: ASPIRIN 81 MG ECTAB PO SCH (08:02)
[2016-12-17] MEDS: LISINOPRIL 10 MG TAB PO SCH (08:02)
[2016-12-17] MEDS: ATORVASTATIN 40 MG TAB PO SCH (08:02)
[2016-12-17] MEDS: FINASTERIDE 5 MG TAB PO SCH (08:02)
[2016-12-17] MEDS: ENOXAPARIN 40 MG/0.4 ML SYR SQ SCH (08:03)
[2016-12-17] MEDS: INSULIN ASPART 100 UNITS/ML 3 ML PEN SC SCH ×4 (08:03→21:00)
[2016-12-17 08:08] VITALS: PULSE 51
--- NOTE | 2016-12-17 11:32 | Hospitalist Progress Note ---
Hospitalist Progress Note Date of Service Dec 17, 2016. (Jocelyn Perez ., LYDIA) Subjective Pt evaluation today including: conversation w/ patient, physical exam, chart review, lab review, review of inpatient medication list Voiding: ferguson catheter in place (draining clear/yellow urine ) Patient states he is feeling well. Oriented to person/place. +decreased appetite. Patient denies any fever, chills, sweats, lightheadedness, dizziness, vision changes, CP, palpitations, edema, SOB, wheezing, cough, abdominal pain, nausea, vomiting, diarrhea, urinary symptoms, melena, numbness/tingling, weakness, muscle/joint pain, anxiety/depression, active bleeding, or new skin discoloration/changes. (Jocelyn Perez ., SILVINAC) Medications Current Inpatient Medications Medications (Trade) Dose Ordered Sig/Hiram Route Start Time Stop Time Status Last Admin Dose Admin Enoxaparin Sodium (Lovenox Inj) 40 mg Q24H SQ 12/15/16 09:00 01/14/17 08:59 12/17/16 08:03 40 MG Acetaminophen (Tylenol Tab) 650 mg Q4H PRN PO 12/15/16 02:15 01/14/17 02:14 Al Hydrox/Mg Hydrox/Simethicone (Maalox Max Susp) 15 ml Q4H PRN PO 12/15/16 02:15 01/14/17 02:14 Magnesium Hydroxide (Milk Of Magnesia Susp) 30 ml Q6H PRN PO 12/15/16 02:15 01/14/17 02:14 Polyethylene (Miralax Powder Packet) 17 gm DAILY PRN PO 12/15/16 02:15 01/14/17 02:14 Ondansetron HCl (Zofran Inj) 4 mg Q6H PRN IV 12/15/16 02:15 01/14/17 02:14 Aspirin (Ecotrin Tab) 81 mg DAILY PO 12/15/16 08:00 01/14/17 08:59 12/17/16 08:02 81 MG Finasteride (Proscar Tab) 5 mg DAILY PO 12/15/16 08:00 01/14/17 08:59 12/17/16 08:02 5 MG Lisinopril 10 mg 10 mg DAILY PO 12/15/16 08:00 01/14/17 08:59 12/17/16 08:02 10 MG Sodium Chloride (Nss 1000ml) 1,000 ml @ 125 mls/hr Q8H IV 12/15/16 03:00 01/14/17 02:59 12/17/16 08:01 125 MLS/HR Insulin Aspart (novoLOG ASPART) SLIDING SCALE G... ACHS SC 12/15/16 06:30 01/14/17 06:29 12/16/16 12:50 3 UNITS Glucose (Glucose 40% Gel) 15-30 GRAMS 15 GRAMS... UD PRN PO 12/15/16 04:00 01/14/17 03:59 Glucose (Glucose Chew Tab) 4-8 Tablets 4 Tabl... UD PRN PO 12/15/16 04:00 01/14/17 03:59 Dextrose (Dextrose 50% 50ML Syringe) 25-50ML OF 50% DW IV FOR... UD PRN IV 12/15/16 04:00 01/14/17 03:59 Glucagon (Glucagon Inj) 1 mg UD PRN SQ 12/15/16 04:00 01/14/17 03:59 Atorvastatin Calcium (Lipitor Tab) 40 mg QAM PO 12/16/16 08:00 01/15/17 07:59 12/17/16 08:02 40 MG Carvedilol (Coreg Tab) 3.125 mg BID PO 12/16/16 20:00 01/15/17 19:59 12/16/16 20:30 3.125 MG Hydralazine HCl 10 mg 10 mg Q4H PRN IV 12/16/16 10:30 01/15/17 10:29 Ciprofloxacin/ Dextrose/Prmx (Cipro / D5w/ Premixed D5W) 200 ml @ 100 mls/hr Q12H IV 12/16/16 14:00 12/21/16 13:59 12/17/16 02:09 100 MLS/HR (Jocelyn Perez, LYDIA) Objective Vital Signs Date Time Temp Pulse Resp B/P Pulse Ox O2 Delivery O2 Flow Rate FiO2 12/17/16 08:08 51 12/17/16 08:00 Room Air 12/17/16 07:56 36.7 57 18 141/78 99 Room Air 12/17/16 00:40 36.7 52 18 143/81 99 Room Air 12/17/16 00:00 Room Air 12/16/16 16:00 Room Air 12/16/16 15:21 36.7 74 16 132/65 94 Room Air 12/16/16 12:47 118/72 (Jocelyn Perez PA-C) Physical Exam General Appearance: no apparent distress Eyes: normal inspection, PERRL ENT: hearing grossly normal Neck: supple Respiratory/Chest: lungs clear, no respiratory distress, no accessory muscle use Cardiovascular: regular rate, rhythm Abdomen: normal bowel sounds, non tender, soft Extremities: no pedal edema, no calf tenderness Neurologic/Psychiatric: alert, normal mood/affect Skin: normal color, warm/dry, no rash (Jocelyn Perez PA-C) Laboratory Results Last 24 Hours Test 12/16/16 11:59 12/16/16 16:45 12/16/16 20:04 12/17/16 07:46 Bedside Glucose 116 mg/dl 174 mg/dl 189 mg/dl 117 mg/dl (Jocelyn Perez PA-C) Assessment and Plan 80-year-old male with past medical history of diabetes, hypertension, stroke in 2015, BPH , coronary artery disease presented with altered mental status since 1 day prior to arrival. AMS, likely secondary to UTI: - Admit to med/surg - Head CT- Negative for any acute changes - CXR- No acute process - EKG- unremarkable; troponin- negative - BCx- NGTD - IVF UTI w/ indwelling Ferguson: - UA dirty, UCx- serratia mercescens- pansensitive - IV Zosyn x1 dose in ED; IV Rocephin and transitioned to IV Cipro on 12/16--> transition to PO x7 days (last day of treatment 12/21) Mild Hypokalemia at 3/3 on 12/15- RESOLVED: - Replace with KCL 20 mEq supplement - Follow PRP, replace PRN T2DM: - Hold Metformin- resume at discharge - BSG ACHS w/ sliding insulin scale Hypertension: Continue Lisinopril Hyperlipidemia: Continue Lipitor History of stroke/CAD: - Continue ASA - Carvedilol decreased to 3.125 mg BID due to hypotension/bradycardia- will hold due to continued bradycardia in the 50's BPH/Urinary retention w/ indwelling Ferguson: - Ferguson changed on 12/14 in ED - Continue Finasteride - Follows w/ Dr. Tee- scheduled f/u at the beginning of December to d/c Ferguson GI Prophylaxis: Maalox PRN, IV Zofran PRN, Milk of Mag and/or MiraLAX DVT prophylaxis: Lovenox Code Status: LEVEL I, FULL Dispo: - From home, lives w/ - PT/OT evaluations pending (Jocelyn Perez ., PA-C) PA Physician Supervision Note: I interviewed and examined the patient. Discussed with Jocelyn Perez PAC and agree with findings and plan as documented in the note. Any exceptions or clarifications are listed here: None PT was angry this am, confused, felt was being treated poorly , someone in his room last night, not sure who, continues with delerium/metabolic encephalopathy vitals are stable lungs are clear car is regular ferguson cath remains Metabolic encephalopathy associated with indwelling cath poa, serratia identified on cipro due to continued encephalopathy, will check labs and repeat CT this maybe unmasking underlying dementia, consider neurology consult PT/OT following Documented By: Sachin Smallwood (Sachin Smallwood M.D.)
[2016-12-17] MEDS ORDERED: LPT40 PO (11:34)
[2016-12-17] MEDS ORDERED: CRG3125 PO (11:34)
[2016-12-17] MEDS ORDERED: CPR500 PO (11:34)
--- NOTE | 2016-12-17 11:37 | Discharge Instructions ---
Discharge Instructions Date of Service Dec 17, 2016. Admission Reason for Admission: Confusion, Uti Discharge Discharge Diagnosis / Problem: Confusion; Urinary tract infection Discharge Goals Goal(s): Decrease discomfort, Improve function, Increase independence, Learn about illness, Diagnostic testing, Therapeutic intervention, Prevent Disease Progression Activity Recommendations Activity Limitations: resume your previous activity . Instructions / Follow-Up Instructions / Follow-Up New/changed medications: 1. Ciprofloxacin 500 mg by mouth twice per day until prescription is complete This medication is an antibiotic used to treat your urinary tract infection 2. Coreg was DECREASED to 3.125 mg by mouth twice per day Resume all other regular home medications as prescribed Please follow-up with your PCP within 5-7 days Please follow-up/keep all of your subspecialty appointments Current Hospital Diet Patient's current hospital diet: Diabetes Type 2 Diet Discharge Diet Recommended Diet: Diabetes Type 2 Diet Pending Studies Studies pending at discharge: no Laboratory Results Last Resulted CBC 12/16/16 06:29 Red Blood Count 4.22, Mean Corpuscular Volume 94.8, Mean Corpuscular Hemoglobin 32.7, Mean Corpuscular Hemoglobin Concent 34.5, Mean Platelet Volume 8.3, Neutrophils (%) (Auto) 57.8, Lymphocytes (%) (Auto) 33.0, Monocytes (%) (Auto) 6.4, Eosinophils (%) (Auto) 2.2, Basophils (%) (Auto) 0.5, Neutrophils # (Auto) 4.43, Lymphocytes # (Auto) 2.53, Monocytes # (Auto) 0.49, Eosinophils # (Auto) 0.17, Basophils # (Auto) 0.04 Last Resulted BMP 12/16/16 06:29 Last 24 Hours Test 12/16/16 11:59 12/16/16 16:45 12/16/16 20:04 12/17/16 07:46 Bedside Glucose 116 mg/dl 174 mg/dl 189 mg/dl 117 mg/dl Hemoglobin A1c Test 10/06/16 12:05 Range/Units Estimated Average Glucose 166 mg/dl Hemoglobin A1c 7.4 H 4.5-5.6 % Medical Emergencies . Who to Call and When: Medical Emergencies: If at any time you feel your situation is an emergency, please call 911 immediately. . Non-Emergent Contact Non-Emergency issues call your: Primary Care Provider . . "Provider Documentation" section prepared by Jocelyn Perez. . VTE Core Measure Inpt VTE Proph given/why not?: Enoxaparin (Lovenox)SQ
--- NOTE | 2016-12-17 11:43 | Discharge Summary ---
Discharge Summary Date of Service Dec 17, 2016. Discharge Summary Admission Date: Dec 15, 2016 at 02:05 Discharge Date: Dec 17, 2016 Discharge Disposition: Home Principal Diagnosis: Confusion; UTI Problems/Secondary Diagnoses: AMS, likely secondary to UTI UTI w/ indwelling Wheatley Mild Hypokalemia T2DM Hypertension Hyperlipidemia History of stroke/CAD BPH/Urinary retention w/ indwelling Wheatley Immunizations: Have You Had Influenza Vaccine: Yes Influenza Vaccine Date: Jun 05, 2008 History of Tetanus Vaccine?: Yes Tetanus Immunization Date: Aug 05, 2005 History of Pneumococcal: Yes History of Hepatitis B Vaccine: No Procedures: CT HEAD WITHOUT CONTRAST (CT) CLINICAL HISTORY: Acute change in mental status. Weakness. COMPARISON STUDY: 06/19/2016 TECHNIQUE: Axial CT of the brain is performed from the vertex to the skull base. IV contrast was not administered for this examination. CT DOSE: 537.48 mGy.cm FINDINGS: No intra or extra-axial mass lesions are visualized. There is no CT evidence of acute cortical infarction. There is no evidence of midline shift. There is no acute hemorrhage. No calvarial fractures are visualized. There are patchy white matter hypodensities likely on a small vessel basis. There is a right frontal lobe infarct which has developed since the preceding study. This does not appear acute. Since the prior study, the patient has also developed a left occipital infarct. Again this does not appear acute. There is no evidence of pathologic ventricular dilatation. There is no evidence of acute sinusitis IMPRESSION: 1. Chronic bilateral infarcts which have appeared since the preceding study 2. No acute intracranial findings Electronically signed by: Jeb Joshua M.D. 12/15/2016 6:33 AM Dictated Date/Time: 12/15/2016 6:31 AM The status of this report is Signed. Draft = Not yet reviewed or approved by Radiologist. Signed = Reviewed and approved by Radiologist. CHEST ONE VIEW PORTABLE HISTORY: Altered mental status. COMPARISON: Chest 11/12/2016. FINDINGS: No focal lung consolidations to suggest pneumonia. No evidence for pulmonary edema. No pleural effusions. No pneumothorax. The heart is stable in size. Mildly tortuous thoracic aorta, unchanged. There are poststernotomy changes. IMPRESSION: No significant change compared to the prior study. No acute process. Electronically signed by: Markie Birmingham M.D. 12/15/2016 7:37 AM Dictated Date/Time: 12/15/2016 7:36 AM The status of this report is Signed. Draft = Not yet reviewed or approved by Radiologist. Signed = Reviewed and approved by Radiologist. Medication Reconciliation New Medications: Atorvastatin (Atorvastatin Calcium) 40 Mg Tab 40 MG PO QAM for 30 Days, #30 TAB Carvedilol (Carvedilol) 3.125 Mg Tab 3.125 MG PO BID for 30 Days, #60 TAB Ciprofloxacin (Ciprofloxacin HCl) 500 Mg Tab 500 MG PO BID for 5 Days, #10 TAB Continued Medications: Aspirin (Aspirin Ec) 81 Mg Tab 81 MG PO DAILY Finasteride (Finasteride) 5 Mg Tab 5 MG PO DAILY Fish Oil (Kayenta-3) 1 Ea Cap 1 CAP PO DAILY Lisinopril (Lisinopril) 10 Mg Tab 10 MG PO DAILY for 30 Days, #30 TAB Metformin Hcl (Glucophage) 500 Mg Tab 500 MG PO DAILY Nitroglycerin (Nitrostat) 0.4 Mg Tab 0.4 MG PO UD PRN for Chest Pain Discontinued Medications: Carvedilol (Carvedilol) 6.25 Mg Tab 6.25 MG PO BID for 30 Days, #60 TAB Referrals At Discharge Follow up Referrals: Family Practice Referral - Within 1 Week with Juventino Spencer M.D. Discharge Exam Review of Systems: Constitutional: No chills, No fatigue, No fever, No sweats, No weakness Respiratory: No cough, No hemoptysis, No shortness of breath Cardiovascular: No chest pain, No edema, No palpitations Abdomen: No GI bleeding, No constipation, No diarrhea, No nausea, No pain, No vomiting Genitourinary - Male: No hematuria Neurologic: No numbness/tingling, No weakness Psychiatric: No anxiety, No depression symptoms Hematologic / Lymphatic: No abnormal bleeding/bruising Integumentary: No itch, No new/changing skin lesions, No rash Physical Exam: General Appearance: no apparent distress Eyes: normal inspection, PERRL ENT: hearing grossly normal Neck: supple Respiratory/Chest: lungs clear, no respiratory distress, no accessory muscle use Cardiovascular: regular rate, rhythm Abdomen / GI: normal bowel sounds, non tender, soft Extremities: no calf tenderness, no pedal edema Neurologic/Psychiatric: alert, normal mood/affect Skin: normal color, warm/dry, no rash Hospital Course 80-year-old male with past medical history of diabetes, hypertension, stroke in 2015, BPH , coronary artery disease presented with altered mental status since 1 day prior to arrival. AMS, likely secondary to UTI: - Admit to med/surg - Head CT- Negative for any acute changes - CXR- No acute process - EKG- unremarkable; troponin- negative - BCx- NGTD - IVF UTI w/ indwelling Wheatley: - UA dirty, UCx- serratia mercescens- pansensitive - IV Zosyn x1 dose in ED; IV Rocephin and transitioned to IV Cipro on 12/16--> transition to PO x7 days (last day of treatment 12/21) Mild Hypokalemia at 3/3 on 12/15- RESOLVED: - Replace with KCL 20 mEq supplement - Follow PRP, replace PRN T2DM: - Hold Metformin- resume at discharge - BSG ACHS w/ sliding insulin scale Hypertension: Continue Lisinopril Hyperlipidemia: Continue Lipitor History of stroke/CAD: - Continue ASA - Carvedilol decreased to 3.125 mg BID due to hypotension/bradycardia BPH/Urinary retention w/ indwelling Wheatley: - Wheatley changed on 12/14 in ED - Continue Finasteride - Follows w/ Dr. Tee- scheduled f/u at the beginning of December to d/c Wheatley GI Prophylaxis: Maalox PRN, IV Zofran PRN, Milk of Mag and/or MiraLAX DVT prophylaxis: Lovenox Code Status: LEVEL I, FULL Dispo: Discharge to home Total Time Spent: Greater than 30 minutes This includes examination of the patient, discharge planning, medication reconciliation, and communication with other providers. Discharge Instructions Please refer to the electronic Patient Visit Report (Discharge Instructions) for additional information. Follow-Up Please follow-up with your PCP within 5-7 days Please follow-up/keep all of your subspecialty appointments Additional Copies To Juventino Spencer M.D.
[2016-12-17 12:05] VITALS: BP 148/94; PULSE 79; O2SAT 97
[2016-12-17 15:50] VITALS: BP 119/70; PULSE 64; TEMP 36.4; O2SAT 97
--- NOTE | 2016-12-17 17:14 | DIAGNOSTIC IMAGING REPORT ---
HEAD CT NONCONTRAST CT DOSE: 884.08 mGy.cm HISTORY: Status change continued delirium TECHNIQUE: Multiaxial CT images of the head were performed without the use of intravenous contrast. Comparison: None. Findings: The paranasal sinuses and mastoid air cells are clear. I interval of visibility of a right superior parietal infarct. No evidence for hemorrhage. Multifocal old infarcts previously noted. No evidence for acute intracranial hemorrhage. No midline shift. Impression: Interval right superior parietal infarct. Pre-existing multifocal old infarcts. No evidence for acute intracranial hemorrhage Electronically signed by: Malik Stacy M.D. 12/17/2016 5:12 PM Dictated Date/Time: 12/17/2016 5:09 PM
[2016-12-17] MEDS ORDERED: ASPIRIN 81 MG CHEW PO ONE (17:45)
[2016-12-17] MEDS: CIPROFLOXACIN 500 MG TAB PO SCH (18:06)
[2016-12-17] MEDS: QUETIAPINE FUMARATE 25 MG TAB PO SCH (19:48)
[2016-12-17 22:23] VITALS: BP 148/77; PULSE 69; TEMP 36.5; O2SAT 97
[2016-12-18 07:01] LABS: BUN/CREATININE RATIO 14.4 (10-20); CALCIUM 8.4 mg/dl (8.5-10.1); CREATININE 0.82 mg/dl (0.60-1.40); POTASSIUM 3.2 mmol/L (3.5-5.1)
[2016-12-18 07:12] LABS: ALB/GLOB RATIO 0.9 (0.9-2); THYROID STIMULATING HORMONE 0.847 uIu/ml (0.300-4.500)
[2016-12-18 07:36] VITALS: BP 132/78; PULSE 63; TEMP 36.9; O2SAT 97
[2016-12-18] MEDS ORDERED: ASPIRIN 325 MG ECTAB PO SCH (08:00)
[2016-12-18] MEDS: ENOXAPARIN 40 MG/0.4 ML SYR SQ SCH (09:27)
[2016-12-18] MEDS: LISINOPRIL 10 MG TAB PO SCH (09:27)
[2016-12-18] MEDS: FINASTERIDE 5 MG TAB PO SCH (09:27)
[2016-12-18] MEDS: INSULIN ASPART 100 UNITS/ML 3 ML PEN SC SCH ×4 (09:28→20:57)
[2016-12-18] MEDS: ATORVASTATIN 40 MG TAB PO SCH (09:28)
[2016-12-18] MEDS: CIPROFLOXACIN 500 MG TAB PO SCH ×2 (09:28→20:52)
--- NOTE | 2016-12-18 09:32 | Neurology Consultation ---
Neurology Consultation Date of Consultation: Dec 18, 2016. Attending Physician: Sachin Smallwood M.D. Primary Care Physician: Juventino Spencer M.D. Reason for Consultation: Patient is an 80-year-old, who was asked to see the request of Dr. Smallwood, for neurologic consultation regarding stroke History of Present Illness Source: patient, family, caregiver, hospital records In July 2014, the patient had a three-vessel coronary artery bypass graft procedure done at [facility] for significant coronary artery disease. As a result of this procedure he suffered a postoperative stroke in the left hemisphere resulting in some severe right-sided weakness. According to the , who is present at bedside today, he was "paralyzed" on the right side and had speech problems. Over time he made improvements where the speech came back to baseline in the face and arm came back to baseline. The right leg is always been weak and he needs a walker for support. The patient had been on Plavix in the past, but has only been on 81 mg aspirin tablet since the stroke. On December 14, it was noted that the patient was confused and couldn't ambulate well. He was sitting at the dinner table and told family members that he not only couldn't see the food but he couldn't see the table either. He records emergency room on December 14 at 2213 hours with a temperature 36.4, respiratory rate 19, pulse 72, blood pressure 149/82, and O2 saturation 97%. His neurologic examination was described as nonfocal. CT scan of the head showed old ischemic changes bilaterally as well as generalized atrophy. CBC, ESR, chem profile, liver profile, and TSH were unremarkable although his glucose was about 220. Because of continued confusion and "sundowning" the patient had a CT scan of the head December 17. It showed a large right posterior parietal stroke, not seen on the CT scan of December 14. He has been described as not seeing very well to the left and having some left- sided weakness. The patient himself has no complaint of pain or headache. Past Medical/Surgical History Medical Problems: (1) Acute chest pain Status: Acute (2) Altered mental status Status: Acute (3) UTI (urinary tract infection) Status: Acute Hypertension Type 2 diabetes History of coronary artery disease post coronary artery bypass graft Dyslipidemia Benign prostatic hypertrophy Recent large right parietal stroke Post appendectomy Post lumbar spine surgery 2 Family History Patient's mother in her 70s of heart disease. The patient's father in his 70s of heart disease as well Social History Patient never smoked cigarettes and never consumed alcohol significantly He used to work at [employer] in the [employer] department retiring at age 55. He's been very active around the house since. Smoking Status: Never smoker Smokeless Tobacco Use: No Alcohol Use: none Drug Use: none Marital Status: Housing Status: lives with family Occupation Status: retired Allergies Coded Allergies: No Known Allergies (Verified , 12/15/16) Current Inpatient Medications Current Inpatient Medications Medications (Trade) Dose Ordered Sig/Hiram Route Start Time Stop Time Status Last Admin Dose Admin Enoxaparin Sodium (Lovenox Inj) 40 mg Q24H SQ 12/15/16 09:00 01/14/17 08:59 12/17/16 08:03 40 MG Acetaminophen (Tylenol Tab) 650 mg Q4H PRN PO 12/15/16 02:15 01/14/17 02:14 Al Hydrox/Mg Hydrox/Simethicone (Maalox Max Susp) 15 ml Q4H PRN PO 12/15/16 02:15 01/14/17 02:14 Magnesium Hydroxide (Milk Of Magnesia Susp) 30 ml Q6H PRN PO 12/15/16 02:15 01/14/17 02:14 Polyethylene (Miralax Powder Packet) 17 gm DAILY PRN PO 12/15/16 02:15 01/14/17 02:14 Ondansetron HCl (Zofran Inj) 4 mg Q6H PRN IV 12/15/16 02:15 01/14/17 02:14 Finasteride (Proscar Tab) 5 mg DAILY PO 12/15/16 08:00 01/14/17 08:59 12/17/16 08:02 5 MG Lisinopril (Zestril Tab) 10 mg DAILY PO 12/15/16 08:00 01/14/17 08:59 12/17/16 08:02 10 MG Insulin Aspart (novoLOG ASPART) SLIDING SCALE G... ACHS SC 12/15/16 06:30 01/14/17 06:29 12/16/16 12:50 3 UNITS Glucose (Glucose 40% Gel) 15-30 GRAMS 15 GRAMS... UD PRN PO 12/15/16 04:00 01/14/17 03:59 Glucose (Glucose Chew Tab) 4-8 Tablets 4 Tabl... UD PRN PO 12/15/16 04:00 01/14/17 03:59 Dextrose (Dextrose 50% 50ML Syringe) 25-50ML OF 50% DW IV FOR... UD PRN IV 12/15/16 04:00 01/14/17 03:59 Glucagon (Glucagon Inj) 1 mg UD PRN SQ 12/15/16 04:00 01/14/17 03:59 Atorvastatin Calcium (Lipitor Tab) 40 mg QAM PO 12/16/16 08:00 01/15/17 07:59 12/17/16 08:02 40 MG Carvedilol (Coreg Tab) 3.125 mg BID PO 12/16/16 20:00 01/15/17 19:59 Future Hold 12/16/16 20:30 3.125 MG Hydralazine HCl (HydrALAZINE INJ) 10 mg Q4H PRN IV 12/16/16 10:30 01/15/17 10:29 Ciprofloxacin (Cipro Tab) 500 mg BID PO 12/17/16 18:00 12/26/16 08:01 12/17/16 18:06 500 MG Quetiapine Fumarate (seroQUEL TAB) 25 mg HS PO 12/17/16 21:00 01/16/17 20:59 12/17/16 19:48 25 MG Aspirin (Ecotrin Tab) 325 mg DAILY PO 12/18/16 08:00 01/17/17 07:59 Review of Systems Constitutional: + fatigue, + weakness Eyes: + worsening of vision ENT: No hearing loss, No tinnitus Respiratory: No cough, No shortness of breath Cardiovascular: No chest pain, No palpitations Abdomen: No nausea, No pain Musculoskeletal: No joint pain Genitourinary - Male: No dysuria Neurologic: + numbness/tingling, + weakness, No memory loss, No vertigo Psychiatric: No anxiety, No depression symptoms Endocrine: + fatigue Hematologic / Lymphatic: No abnormal bleeding/bruising Integumentary: No rash Allergic / Immunologic: No hives Physical Exam Vital Signs (Past 24 Hrs): Date Time Temp Pulse Resp B/P Pulse Ox O2 Delivery O2 Flow Rate FiO2 4/22/17 07:36 36.9 63 16 132/78 97 Room Air 12/18/16 00:00 Room Air 12/17/16 22:23 36.5 69 18 148/77 97 Room Air 12/17/16 20:00 Room Air 12/17/16 16:00 Room Air 12/17/16 15:50 36.4 64 17 119/70 97 Room Air 12/17/16 12:05 79 97 The patient is right-handed. The patient is in bed with his eyes closed sleeping. He will arouse with voice and gentle shaking. It took him a few minutes to "wake up" but he was answering questions and following one-step commands well. When left alone he drifts back off to sleep. His mood and affect seem normal and appropriate. Thought processes for what we asked him were reasonable although he didn't know his age, he knew the month. The discs are sharp with positive venous pulsations. He may have some early cataract formation bilaterally. There are no exudates, hemorrhages, or blood vessel changes seen. Pupils are 3mm bilaterally and reactive to light. Extraocular eye muscles are intact without nystagmus, except he will pull his eyes much past midline to the left. He has a dense left homonymous hemianopsia present There are no deficits to sensation of the face bilaterally. Corneal reflexes are positive bilaterally. Facial strength and symmetry seem normal bilaterally. Hearing seems intact grossly to voice and finger rub. Palate moves well without asymmetry. There is normal sternocleidomastoid and trapezius strength bilaterally. Tongue is midline with good strength bilaterally. Neck is with full range of motion without discomfort. There are no cervical bruits. There are no cranial or ocular bruits. Heart is without murmur. Cervical, thoracic, and lumbar spine are nontender to palpation. Gait is is not testable in stance is poor attempting to sit up in bed. With outstretched arms there is no drift on the right. There is drift on the left. There are no obvious resting, postural, or action tremors. There is no ataxia with [id number] testing on the right. There is reasonable facility in the right hand decreased on the left. There are no abnormal involuntary movements noted. Motor strength is basically 5/5 diffusely in the right upper extremity both proximally and distally. There is 4/5 strength diffusely in the right lower extremity. Strength is 4/5 diffusely in the left arm and leg. The leg seems a little weaker than the arm the but he does have some ability to move and hold up his limbs volitionally. He can wiggle his fingers someone his own but doesn' t have much of her deep sea diver. The limbs have good tone without rigidity or spasticity, and there is no atrophy noted. Muscle bulk is normal, there is no tenderness, no myotonia noted to percussion, and no fasciculations seen. Sensory examination reveals withdrawal and localization and deep pain in the right arm and leg. The patient feels sensation and can withdraw some in the left arm and left leg but doesn't withdraw as much as the right side. In addition he cannot localize the pain and even can't state what it is that he feels when the left side is stimulated with the pain. He neglects the left side including arm and leg and trunk with double simultaneous stimulation. When stimulating the left side alone he can identify the left. Reflexes are 2/4 in the left biceps, triceps, brachioradialis, quadriceps, and Achilles tendons and reflexes are 1/4 on the right. Toes are downgoing with plantar stimulation on the right and upgoing on the left Peripheral pulses are present and of normal quality distally in all four limbs. There is no peripheral edema noted. Laboratory Results Past 24 Hours: 12/18/16 06:00 Test 12/18/16 06:00 12/18/16 07:37 Erythrocyte Sedimentation Rate 15 mm/hr (0-14) Anion Gap 10.0 mmol/L (3-11) Est Creatinine Clear Calc Drug Dose 73.2 ml/min Estimated GFR () 96.8 Estimated GFR (Non- 83.5 BUN/Creatinine Ratio 14.4 (10-20) Calcium Level 8.4 mg/dl (8.5-10.1) Total Bilirubin 1.8 mg/dl (0.2-1) Aspartate Amino Transf (AST/SGOT) 14 U/L (15-37) Alanine Aminotransferase (ALT/SGPT) 16 U/L (12-78) Alkaline Phosphatase 94 U/L (45-117) Total Protein 6.3 gm/dl (6.4-8.2) Albumin 3.0 gm/dl (3.4-5.0) Globulin 3.3 gm/dl (2.5-4.0) Albumin/Globulin Ratio 0.9 (0.9-2) Thyroid Stimulating Hormone (TSH) 0.847 uIu/ml (0.300-4.500) Bedside Glucose 107 mg/dl (70-99) Imaging HEAD CT NONCONTRAST CT DOSE: 884.08 mGy.cm HISTORY: Status change continued delirium TECHNIQUE: Multiaxial CT images of the head were performed without the use of intravenous contrast. Comparison: None. Findings: The paranasal sinuses and mastoid air cells are clear. I interval of visibility of a right superior parietal infarct. No evidence for hemorrhage. Multifocal old infarcts previously noted. No evidence for acute intracranial hemorrhage. No midline shift. Impression: Interval right superior parietal infarct. Pre-existing multifocal old infarcts. No evidence for acute intracranial hemorrhage Electronically signed by: Malik Stacy M.D. 12/17/2016 5:12 PM Impression 1. New onset of posterior right parietal stroke of a medium to large size, likely occurring on December 14 on the day of admission. Clinically he has a dense/complete left homonymous hemianopsia, mild left hemiparesis, and significant left hemisensory deficit mostly with extinction/ neglect. NIH stroke scale equals 10 The etiology of this stroke is likely ischemic. His risk factors include hypertension, diabetes, and dyslipidemia. He had this event on 81 mg aspirin tablet daily. 2. Significant chronic cerebral ischemia and old lacunar infarcts bilaterally. Patient had a significant left hemispheric stroke postoperatively from a coronary artery bypass graft procedure July 2014 resulting in some residual right hemiparesis, leg greater than arm/face. 3. Acute encephalopathy This is likely a combination of confusion from his urinary tract infection ( Serratia marcescens) and other factors With bilateral strokes (even of different ages) this can lead to somnolence, altered mental status, and behavioral changes Although he is sleepy, when aroused, his mental status is very reasonable. He is pleasant and cooperative. Plan 1. Consider adding clopidogrel 75 mg to the 81 mg aspirin tablet 2. Physical occupational speech therapy consults. Consider a rehabilitation hospital stay if indicated when medically stable 3. Continue antibiotic treatment for urinary tract infection as you are doing 4. Consider 20 mg fluoxetine for mood. 5. I would not increase her Seroquel dose any further 6. Consider MRI of the brain with and without contrast as well as MR angiography head 7. Consider carotid ultrasound and echocardiogram 8. fasting lipid profile I've spoken to Dr. Smallwood regarding this case including differential diagnosis and treatment options.
[2016-12-18 15:21] VITALS: BP 147/79; PULSE 76; TEMP 36.9; O2SAT 96
--- NOTE | 2016-12-18 16:00 | Progress Note ---
Subjective Date of Service: Dec 18, 2016. Subjective pt has some visual field limitations and neurology has uncovered some left sided neglect, pt is about the same family is updated and request [facility] referral Problem List Medical Problems: (1) Acute chest pain Status: Acute (2) Altered mental status Status: Acute (3) UTI (urinary tract infection) Status: Acute Review of Systems Constitutional: + fatigue, + weakness, No chills, No fever Eyes: + worsening of vision, No eye pain Respiratory: No cough, No shortness of breath Cardiac: No chest pain, No edema Abdomen: No diarrhea, No nausea, No pain, No vomiting Musculoskeletal: No joint pain, No muscle pain Neurologic: + balance problems, + memory loss, + weakness Psychiatric: + anhedonism, + depression symptoms Objective Vital Signs Date Time Temp Pulse Resp B/P Pulse Ox O2 Delivery O2 Flow Rate FiO2 12/18/16 15:21 36.9 76 17 147/79 96 Room Air 12/18/16 08:50 Room Air 12/18/16 07:36 36.9 63 16 132/78 97 Room Air 12/18/16 00:00 Room Air 12/17/16 22:23 36.5 69 18 148/77 97 Room Air 12/17/16 20:00 Room Air 12/17/16 16:00 Room Air Physical Exam General Appearance: WD/WN, + mild distress Eyes: PERRL, EOMI Respiratory/Chest: chest non-tender, lungs clear, normal breath sounds Cardiovascular: regular rate, rhythm, no murmur Abdomen: normal bowel sounds, non tender, soft Laboratory Results Last 24 Hours Test 12/17/16 16:47 12/17/16 20:59 12/18/16 06:00 12/18/16 07:37 Bedside Glucose 128 mg/dl 142 mg/dl 107 mg/dl Erythrocyte Sedimentation Rate 15 mm/hr Sodium Level 146 mmol/L Potassium Level 3.2 mmol/L Chloride Level 111 mmol/L Carbon Dioxide Level 25 mmol/L Anion Gap 10.0 mmol/L Blood Urea Nitrogen 12 mg/dl Creatinine 0.82 mg/dl Est Creatinine Clear Calc Drug Dose 73.2 ml/min Estimated GFR () 96.8 Estimated GFR (Non- 83.5 BUN/Creatinine Ratio 14.4 Random Glucose 106 mg/dl Calcium Level 8.4 mg/dl Total Bilirubin 1.8 mg/dl Aspartate Amino Transf (AST/SGOT) 14 U/L Alanine Aminotransferase (ALT/SGPT) 16 U/L Alkaline Phosphatase 94 U/L Total Protein 6.3 gm/dl Albumin 3.0 gm/dl Globulin 3.3 gm/dl Albumin/Globulin Ratio 0.9 Vitamin B12 Level 734 pg/mL Thyroid Stimulating Hormone (TSH) 0.847 uIu/ml Test 12/18/16 11:40 Bedside Glucose 118 mg/dl Assessment and Plan 80 M with uti poa associated with indwelling catheder, found to have a new right parietal stroke with visual field and left sided deficits Neurology has seen recommends asa + plavix plus statin and aggressive rehab uti, serratia on cipro, continue to have treatment of one week and Continue Finasteride - Follows w/ Dr. Tee- scheduled f/u at the beginning of December to d/c [place] T2DM:- Hold Metformin- resume at discharge - BSG ACHS w/ sliding insulin scale Hypertension: stable on Lisinopril DVT prophylaxis: Lovenox Code Status: LEVEL I, FULL Documented By: Sachin Smallwood
[2016-12-18] MEDS ORDERED: CLOPIDOGREL BISULFATE 75 MG TAB PO ONE (16:15)
[2016-12-18] MEDS ORDERED: POTASSIUM CHLORIDE 10 MEQ TABCR PO ONE (17:45)
[2016-12-18] MEDS ORDERED: LORAZEPAM 2 MG/ML 1 ML VIAL IV PRN ×2 (17:45)
[2016-12-18] MEDS ORDERED: OLANZAPINE ZYDIS 5 MG ORALLY DIS. TAB PO ONE (17:45)
[2016-12-18 22:30] VITALS: BP 179/95; PULSE 71; TEMP 36.5; O2SAT 99
[2016-12-19] VITALS: BP 159/96
[2016-12-19 06:49] VITALS: BP 156/86; PULSE 80; TEMP 36.6; O2SAT 95
[2016-12-19] MEDS: CIPROFLOXACIN 500 MG TAB PO SCH ×2 (08:53→19:41)
[2016-12-19] MEDS: LISINOPRIL 10 MG TAB PO SCH (08:53)
[2016-12-19] MEDS: ASPIRIN 81 MG ECTAB PO SCH (08:54)
[2016-12-19] MEDS: FINASTERIDE 5 MG TAB PO SCH (08:55)
[2016-12-19] MEDS: POTASSIUM CHLORIDE 20 MEQ TABCR PO SCH (08:55)
[2016-12-19] MEDS: ATORVASTATIN 40 MG TAB PO SCH (08:56)
[2016-12-19] MEDS: CLOPIDOGREL BISULFATE 75 MG TAB PO SCH (08:56)
[2016-12-19] MEDS: ENOXAPARIN 40 MG/0.4 ML SYR SQ SCH (08:59)
[2016-12-19] MEDS: INSULIN ASPART 100 UNITS/ML 3 ML PEN SC SCH ×4 (10:00→21:27)
--- NOTE | 2016-12-19 10:13 | Neurology Progress Notes ---
Neurology Progress Note Date of Service Dec 19, 2016. Subjective Patient has no complaint of pain or headache. He is still sleepy but will open his eyes and cooperate once aroused with voice. He is not dizzy. Nursing reports no new issues or problems. Objective Date Time Temp Pulse Resp B/P Pulse Ox O2 Delivery O2 Flow Rate FiO2 12/19/16 06:49 36.6 80 18 156/86 95 Room Air 12/19/16 00:00 Room Air 12/19/16 00:00 159/96 12/18/16 22:30 36.5 71 16 179/95 99 Room Air 12/18/16 16:00 Room Air 12/18/16 15:21 36.9 76 17 147/79 96 Room Air Last 24 Hours Test 12/18/16 11:40 12/18/16 16:42 12/18/16 20:47 12/19/16 04:29 Bedside Glucose 118 mg/dl 136 mg/dl 160 mg/dl 143 mg/dl Test 12/19/16 07:26 Bedside Glucose 135 mg/dl Exam: He is sleepy but easily aroused. When not stimulated he will drift back to sleep. She will follow one-step commands and is pleasant and cooperative. He prefers looking to the right and he cannot see off to the left. He neglects his left side as before. He can move his left side and hold his arm and leg up some. Current Inpatient Medications Medications (Trade) Dose Ordered Sig/Hiram Route Start Time Stop Time Status Last Admin Dose Admin Enoxaparin Sodium (Lovenox Inj) 40 mg Q24H SQ 12/15/16 09:00 01/14/17 08:59 12/19/16 08:59 40 MG Acetaminophen (Tylenol Tab) 650 mg Q4H PRN PO 12/15/16 02:15 01/14/17 02:14 Al Hydrox/Mg Hydrox/Simethicone (Maalox Max Susp) 15 ml Q4H PRN PO 12/15/16 02:15 01/14/17 02:14 Magnesium Hydroxide (Milk Of Magnesia Susp) 30 ml Q6H PRN PO 12/15/16 02:15 01/14/17 02:14 Polyethylene (Miralax Powder Packet) 17 gm DAILY PRN PO 12/15/16 02:15 01/14/17 02:14 Ondansetron HCl (Zofran Inj) 4 mg Q6H PRN IV 12/15/16 02:15 01/14/17 02:14 Finasteride (Proscar Tab) 5 mg DAILY PO 12/15/16 08:00 01/14/17 08:59 12/19/16 08:55 5 MG Lisinopril (Zestril Tab) 10 mg DAILY PO 12/15/16 08:00 01/14/17 08:59 12/19/16 08:53 10 MG Insulin Aspart (novoLOG ASPART) SLIDING SCALE G... ACHS SC 12/15/16 06:30 01/14/17 06:29 12/19/16 10:00 3 UNITS Glucose (Glucose 40% Gel) 15-30 GRAMS 15 GRAMS... UD PRN PO 12/15/16 04:00 01/14/17 03:59 Glucose (Glucose Chew Tab) 4-8 Tablets 4 Tabl... UD PRN PO 12/15/16 04:00 01/14/17 03:59 Dextrose (Dextrose 50% 50ML Syringe) 25-50ML OF 50% DW IV FOR... UD PRN IV 12/15/16 04:00 01/14/17 03:59 Glucagon (Glucagon Inj) 1 mg UD PRN SQ 12/15/16 04:00 01/14/17 03:59 Atorvastatin Calcium (Lipitor Tab) 40 mg QAM PO 12/16/16 08:00 01/15/17 07:59 12/19/16 08:56 40 MG Carvedilol (Coreg Tab) 3.125 mg BID PO 12/16/16 20:00 01/15/17 19:59 Future hold 12/16/16 20:30 3.125 MG Hydralazine HCl (HydrALAZINE INJ) 10 mg Q4H PRN IV 12/16/16 10:30 01/15/17 10:29 Ciprofloxacin (Cipro Tab) 500 mg BID PO 12/17/16 18:00 12/26/16 08:01 12/19/16 08:53 500 MG Quetiapine Fumarate (seroQUEL TAB) 25 mg HS PO 12/17/16 21:00 01/16/17 20:59 Future Hold 12/17/16 19:48 25 MG Clopidogrel Bisulfate (plAVix TAB) 75 mg QAM PO 12/19/16 08:00 01/18/17 07:59 12/19/16 08:56 75 MG Aspirin (Ecotrin Tab) 81 mg QAM PO 12/19/16 08:00 01/18/17 07:59 12/19/16 08:54 81 MG Potassium Chloride (Klor-Con Tab) 20 meq QAM PO 12/19/16 08:00 01/18/17 07:59 12/19/16 08:55 20 MEQ Lorazepam (Ativan Inj) 1 mg Q4H PRN IV 12/18/16 17:45 01/17/17 17:44 Lorazepam (Ativan Inj) 0.5 mg Q4H PRN IV 12/18/16 17:45 01/17/17 17:44 Impression 1. New onset of posterior right parietal stroke of a medium to large size, likely occurring on December 14, on the day of admission. Clinically he has a dense/complete left homonymous hemianopsia, mild left hemiparesis, and significant left hemisensory deficit mostly with extinction/ neglect. NIH stroke scale equals 10, and he seems unchanged from yesterday clinically. The etiology of this stroke is likely ischemic. His risk factors include hypertension, diabetes, and dyslipidemia. He had this event on 81 mg aspirin tablet daily. 2. Significant chronic cerebral ischemia and old lacunar infarcts bilaterally. Patient had a significant left hemispheric stroke postoperatively from a coronary artery bypass graft procedure July 2014 resulting in some residual right hemiparesis, leg greater than arm/face. 3. Acute encephalopathy This is likely a combination of confusion from his urinary tract infection ( Serratia marcescens) and other factors With bilateral strokes (even of different ages) this can lead to somnolence, altered mental status, and behavioral changes Although he is sleepy, when aroused, his mental status is very reasonable. He is pleasant and cooperative. Plan 1. Continue clopidogrel 75 mg daily along with the 81 mg aspirin tablet 2. Physical, occupational, and speech therapy consults. Consider a rehabilitation hospital stay if indicated when medically stable 3. Continue antibiotic treatment for urinary tract infection as you are doing 4. Consider 20 mg fluoxetine for mood. 5. I would not increase his Seroquel dose any further 6. Consider MRI of the brain with and without contrast as well as MR angiography head 7. Consider carotid ultrasound and echocardiogram 8. fasting lipid profile
--- NOTE | 2016-12-19 15:26 | Progress Note ---
Subjective Date of Service: Dec 19, 2016. Subjective a bit oversedate from his zyprexa, but arousable and talking, overall sleepy today Problem List Medical Problems: (1) Acute chest pain Status: Acute (2) Altered mental status Status: Acute (3) UTI (urinary tract infection) Status: Acute Review of Systems Constitutional: + fatigue, + weakness, No chills, No fever Eyes: + problem reported (does have visual filed cut), No eye pain, No worsening of vision Respiratory: No cough, No shortness of breath Cardiac: No chest pain, No edema Abdomen: No diarrhea, No nausea, No pain, No vomiting Neurologic: + balance problems, + memory loss, + weakness Objective Vital Signs Date Time Temp Pulse Resp B/P Pulse Ox O2 Delivery O2 Flow Rate FiO2 12/19/16 08:00 Room Air 12/19/16 06:49 36.6 80 18 156/86 95 Room Air 12/19/16 00:00 Room Air 12/19/16 00:00 159/96 12/18/16 22:30 36.5 71 16 179/95 99 Room Air 12/18/16 16:00 Room Air Physical Exam General Appearance: WD/WN, + mild distress Neck: supple, no JVD Respiratory/Chest: chest non-tender, lungs clear, normal breath sounds Cardiovascular: regular rate, rhythm, no murmur Abdomen: normal bowel sounds, non tender, soft Neurologic/Psychiatric: alert, + abnormal authorization specialist II-XII, + motor weakness, + depressed affect Laboratory Results Last 24 Hours Test 12/18/16 16:42 12/18/16 20:47 12/19/16 04:29 12/19/16 07:26 Bedside Glucose 136 mg/dl 160 mg/dl 143 mg/dl 135 mg/dl Test 12/19/16 11:46 Bedside Glucose 235 mg/dl Assessment and Plan 80 M with uti poa associated with indwelling catheder, found to have a new right parietal stroke with visual field and left sided deficits Neurology has seen recommends asa + plavix plus statin and aggressive rehab, [facility] referral, he has significant sleepiness with this stroke and his return to home is questionable uti, serratia on cipro, continue to have treatment of one week and Continue Finasteride - Follows w/ Dr. Tee- scheduled f/u at the beginning of December to d/c [place] T2DM:- Hold Metformin- resume at discharge - BSG ACHS w/ sliding insulin scale Hypertension: stable on Lisinopril DVT prophylaxis: Lovenox Code Status: LEVEL I, FULL overall rehab issues are large as this was a big stroke Documented By: Sachin Smallwood
[2016-12-19] MEDS ORDERED: SODIUM CHLORIDE 0.9% 1000ML 1,000 ML IV SCH (15:45)
[2016-12-19 16:12] VITALS: BP 167/77; PULSE 84; TEMP 36.3; O2SAT 99
[2016-12-19] MEDS ORDERED: LORAZEPAM INJ 0.5 MG in SYRINGE 0.75 ML IV PRN (16:15)
[2016-12-19] MEDS ORDERED: LORAZEPAM INJ 1 MG in SYRINGE 0.5 ML IV PRN (16:15)
[2016-12-19] MEDS: CARVEDILOL 3.125 MG TAB PO SCH (19:42)
[2016-12-19] MEDS: QUETIAPINE FUMARATE 25 MG TAB PO SCH (19:42)
[2016-12-20 06:19] VITALS: BP 136/79; PULSE 65; TEMP 37; O2SAT 99
[2016-12-20 07:24] VITALS: BP 146/72; PULSE 60; TEMP 37; O2SAT 97
[2016-12-20] MEDS: CIPROFLOXACIN 500 MG TAB PO SCH (09:47)
[2016-12-20] MEDS: CARVEDILOL 3.125 MG TAB PO SCH (09:48)
[2016-12-20] MEDS: POTASSIUM CHLORIDE 20 MEQ TABCR PO SCH (09:49)
[2016-12-20] MEDS: CLOPIDOGREL BISULFATE 75 MG TAB PO SCH (09:50)
[2016-12-20] MEDS: LISINOPRIL 10 MG TAB PO SCH (09:50)
[2016-12-20] MEDS: ATORVASTATIN 40 MG TAB PO SCH (09:50)
[2016-12-20] MEDS: FINASTERIDE 5 MG TAB PO SCH (09:58)
[2016-12-20] MEDS: ENOXAPARIN 40 MG/0.4 ML SYR SQ SCH (10:00)
[2016-12-20] MEDS: ASPIRIN 81 MG ECTAB PO SCH (10:38)
[2016-12-20] MEDS: INSULIN ASPART 100 UNITS/ML 3 ML PEN SC SCH ×2 (10:38→12:59)
--- NOTE | 2016-12-20 15:18 | Discharge Instructions ---
Discharge Instructions Date of Service Dec 20, 2016. Admission Reason for Admission: Confusion, Uti Discharge Discharge Diagnosis / Problem: Cerebrovascular accident. Coronary artery disease Discharge Goals Goal(s): Learn about illness Activity Recommendations Activity Limitations: per Instructions/Follow-up section Lifting Limitations: until after follow-up appointment Exercise/Sports Limitations: until after follow-up appointment May Resume Sexual Activity: after follow-up appointment Driving or Machine Use: . Instructions / Follow-Up Instructions / Follow-Up Risk Factors for Stroke: You can reduce your chances of stroke by working with your medical provider to adopt a healthy lifestyle. Some specific ways to lower your chance of stroke are: * If you are a smoker, now is the time to stop smoking cigarettes * If you are diabetic, improve the control of your blood sugars * Avoid excessive amounts of alcohol * Control high blood pressure * Lose weight if you are overweight * Be sure to lead an active lifestyle * Eat a healthy diet low in salt, cholesterol and fat You should know about other risk factors for stroke that you are unable to control. These include: * Age 55 years or older * Male gender * Certain racial groups: , or / * Family History of Stroke, Mini stroke or Heart Attack * Sickle Cell Disease Follow Up: It is important for you to keep your follow up appointments with your medical provider. Current Hospital Diet Patient's current hospital diet: Diabetes Type 2 Diet Discharge Diet Recommended Diet: Diabetes Type 2 Diet Pending Studies Studies pending at discharge: no Laboratory Results Hemoglobin A1c Test 10/06/16 12:05 Range/Units Estimated Average Glucose 166 mg/dl Hemoglobin A1c 7.4 H 4.5-5.6 % Medical Emergencies . Who to Call and When: Medical Emergencies: Call 911 immediately if you experience any of the following warning signs and symptoms of Stroke: * Sudden numbness or weakness of the face, arm or leg, especially on one side of the body * Sudden confusion, trouble speaking or understanding * Sudden trouble seeing in one or both eyes * Sudden trouble walking, dizziness, loss of balance or coordination * Sudden severe headache with no cause Do not delay calling 911 if you experience any warning signs or symptoms of a stroke. Delay in seeking medical attention may affect what treatments can be given to you. . Non-Emergent Contact Non-Emergency issues call your: Primary Care Provider . Past History Medical & Surgical History: (1) UTI (urinary tract infection) (2) Altered mental status (3) CVA (cerebral vascular accident) (4) Diabetes (5) CAD (coronary artery disease) (6) Hyperlipidemia . "Provider Documentation" section prepared by Randolph Chin. . Coloring Checker Recommendations Coloring Checker Recommendations: Dual antiplatelet therapy (Aspirin, plavix), statin (moderate to high dose). Neuro Rehab. Stroke Core Measures Reason no t-PA for Stroke: Treatment not indicated Reason no antithrom by day 2: Treatment provided - N/A Reason no antithrom at D/C: Treatment provided - N/A Reason no statin at D/C: Treatment provided - N/A Reason no anticoag w/a fib: Treatment not indicated VTE Core Measure Inpt VTE Proph given/why not?: Enoxaparin (Lovenox)SQ
[2016-12-20 15:45] VITALS: BP 137/77; PULSE 67; TEMP 36.7; O2SAT 96
--- NOTE | 2016-12-22 16:31 | Discharge Summary ---
Discharge Summary Date of Service Dec 22, 2016. Discharge Summary Admission Date: Dec 15, 2016 at 02:05 Discharge Date: Dec 17, 2016 Discharge Disposition: Acute care facility ([facility]) Principal Diagnosis: CVA Problems/Secondary Diagnoses: CAD s/p CABG Immunizations: Have You Had Influenza Vaccine: Yes Influenza Vaccine Date: Jun 05, 2008 History of Tetanus Vaccine?: Yes Tetanus Immunization Date: Aug 05, 2005 History of Pneumococcal: Yes History of Hepatitis B Vaccine: No Procedures: HEAD CT NONCONTRAST CT DOSE: 884.08 mGy.cm HISTORY: Status change continued delirium TECHNIQUE: Multiaxial CT images of the head were performed without the use of intravenous contrast. Comparison: None. Findings: The paranasal sinuses and mastoid air cells are clear. I interval of visibility of a right superior parietal infarct. No evidence for hemorrhage. Multifocal old infarcts previously noted. No evidence for acute intracranial hemorrhage. No midline shift. Impression: Interval right superior parietal infarct. Pre-existing multifocal old infarcts. No evidence for acute intracranial hemorrhage Electronically signed by: Malik Stacy M.D. 12/17/2016 5:12 PM Consultations: Neurology Medication Reconciliation New Medications: Atorvastatin (Atorvastatin Calcium) 40 Mg Tab 40 MG PO QAM for 30 Days, #30 TAB Carvedilol (Carvedilol) 3.125 Mg Tab 3.125 MG PO BID for 30 Days, #60 TAB Ciprofloxacin (Ciprofloxacin HCl) 500 Mg Tab 500 MG PO BID for 5 Days, #10 TAB Continued Medications: Aspirin (Aspirin Ec) 81 Mg Tab 81 MG PO DAILY Finasteride (Finasteride) 5 Mg Tab 5 MG PO DAILY Fish Oil (Pindall-3) 1 Ea Cap 1 CAP PO DAILY Lisinopril (Lisinopril) 10 Mg Tab 10 MG PO DAILY for 30 Days, #30 TAB Metformin Hcl (Glucophage) 500 Mg Tab 500 MG PO DAILY Nitroglycerin (Nitrostat) 0.4 Mg Tab 0.4 MG PO UD PRN for Chest Pain Discontinued Medications: Carvedilol (Carvedilol) 6.25 Mg Tab 6.25 MG PO BID for 30 Days, #60 TAB Discharge Exam Physical Exam: Eyes: normal inspection ENT: hearing grossly normal Neck: supple, no JVD Respiratory/Chest: chest non-tender Cardiovascular: regular rate, rhythm, no murmur Abdomen / GI: normal bowel sounds, non tender, soft Extremities: normal inspection Neurologic/Psychiatric: + motor weakness (left hemiparesis. ), + sensory deficit (left hemineglect) Hospital Course 80 M with uti poa associated with indwelling catheter, found to have a new right parietal stroke with visual field and left sided deficits Neurology has seen recommends asa + plavix plus statin and aggressive rehab. As per family request patient was transferred to [place]. uti, serratia on cipro, continue to have treatment of one week and Continue Finasteride - Follows w/ Dr. Tee- scheduled f/u at the beginning of December to d/c Dioni T2DM:- Hold Metformin- resume at discharge - BSG ACHS w/ sliding insulin scale Hypertension: stable on Lisinopril DVT prophylaxis: Lovenox Code Status: LEVEL I, FULL Total Time Spent: Greater than 30 minutes This includes examination of the patient, discharge planning, medication reconciliation, and communication with other providers. Discharge Instructions Please refer to the electronic Patient Visit Report (Discharge Instructions) for additional information. Follow-Up Neurology as OP
--- NOTE | 2017-01-10 08:22 | EDITING REQUIRED CODING QUERY ---
PRESENT ON ADMISSION QUERY To promote full compliance with coding requirements relating to pateint care, physician participation is requested in all cases of manager harbor uncertainty. Please assist us with the question(s) below: Please place an X within the parenthesis (x). The following diagnosis(es) listed in this patient's medical record require physician assistance to determine if they were present on admission (POA) or not. Please advise for each diagnosis whether it was present on admission, not present on admission, or if it was clinically undetermined. Per Neuro Consult patient had a Head CT on 12/17 which showed a large posterior parietal stroke not seen on the admission CT scan on 12/14. Thanks for your help! 1.Posterior Parietal Stroke ( ) Present On Admission ( ) Not Present On Admission ( ) Clinically Undetermined Thank you MISAEL Gold CCS *Definition of the present on admission (POA)-Present on admission is defined as present at the time the order for inpatient admission occurs. Conditions that develop during an outpatient encounter prior to a written order for inpatient admission (including emergency department, observation, or outpatient surgery) are considered present on admission.
--- NOTE | 2017-01-19 08:20 | EDITING REQUIRED CODING QUERY ---
CODING QUERY To promote full compliance with coding requirements relating to patient care, provider participation is requested in all cases of replacer uncertainty. Please assist us with the question(s) below: Coding Question(s): Per your Neurology Consult, patient had a CT head on 12/17 which showed a large parietal stroke not seen on the admission CT Scan on 12/14 . Please check below to verify if the posterior stroke was present on admission. Thank you. Tito Waddell [facility] Physician's Response(s): ____X____ The stroke was present on admission The stroke occurred after admission Unable to Clinically determine if the stroke was present on admission Other/ Please document : Principal Diagnosis: "_that condition established after study, to be chiefly responsible for occasioning the admission of the patient to the hospital for care." Co-Existing Principal Diagnosis: "_when two or more diagnoses equally meet the criteria for principal diagnosis as determined by the circumstances of admission, diagnostic work up, and/or therapy provided, and the Alphabetic Index, Tabular List, or another coding guideline does not provide sequencing direction, any one of the diagnoses may be sequenced first." "When the physician has documented what appears to be a current diagnosis in the body of the record, but has not included the diagnosis in the final diagnostic statement, the physician should be asked whether the diagnosis should be added." (Source Coding [facility] 2 QTR90. p3-4)
== END 2016-12-20 16:00 | disposition short-term general hospital (02) | DRG 64 ==
LOC: ENRESERVTM → ENRESERVDT → C.EDB 22:08 → C.4E 12-15 02:05
PROVIDERS: ADMIT Family Medicine; ATTEND Internal Medicine
DX: I63.9 Cerebral infarction, unspecified (principal); T83.511A Infection and inflammatory reaction due to indwelling urethral catheter, initial encounter; N39.0 Urinary tract infection, site not specified; G81.94 Hemiplegia, unspecified affecting left nondominant side; G93.41 Metabolic encephalopathy; I25.10 Atherosclerotic heart disease of native coronary artery without angina pectoris; Z86.73 Personal history of transient ischemic attack (TIA), and cerebral infarction without residual deficits; E11.9 Type 2 diabetes mellitus without complications; E78.5 Hyperlipidemia, unspecified; N40.0 Benign prostatic hyperplasia without lower urinary tract symptoms; B96.89 Other specified bacterial agents as the cause of diseases classified elsewhere; Z83.3 Family history of diabetes mellitus; Z79.82 Long term (current) use of aspirin; H53.47 Heteronymous bilateral field defects; Z95.5 Presence of coronary angioplasty implant and graft; R29.710 NIHSS score 10; Y84.6 Urinary catheterization as the cause of abnormal reaction of the patient, or of later complication, without mention of misadventure at the time of the procedure; Y92.009 Unspecified place in unspecified non-institutional (private) residence as the place of occurrence of the external cause

== ENCOUNTER 2017-02-07 13:25 | Inpatient (IN) | payer BC, OTHER ==
[~2017-02-07] VITALS: Ht 167.6 cm; Wt 67.9 kg
[~2017-02-07 13:25] MED LIST changes: -AZIT250T PO; +CPR500 PO; +CRG3125 PO; -CRG625 PO; +LPT40 PO; +PRS5 PO; -URX/10 PO
[2017-02-07] MEDS ORDERED: SODIUM CHLORIDE 0.9% 500ML 500 ML IV STA (13:39)
--- NOTE | 2017-02-07 14:06 | DIAGNOSTIC IMAGING REPORT ---
CHEST ONE VIEW PORTABLE CLINICAL HISTORY: Acute change in mental status COMPARISON STUDY: 12/14/2016 FINDINGS: There are postsurgical changes of midline sternotomy. There is a mild scoliosis. The heart is at the upper limits of normal in size. There is no failure. There is no focal pulmonary consolidation. There are no pleural effusions. There are minor left perihilar atelectatic changes. There is borderline elevation left hemidiaphragm. There are postsurgical changes within the lumbar spine.[ IMPRESSION: No active disease in the chest. Electronically signed by: Jeb Joshua M.D. 02/07/2017 2:04 PM Dictated Date/Time: 02/07/2017 2:03 PM
--- NOTE | 2017-02-07 14:07 | DIAGNOSTIC IMAGING REPORT ---
KUB CLINICAL HISTORY: Acute change in mental status. Possible fecal impaction. Possible bowel obstruction. COMPARISON STUDY: No previous studies for comparison. FINDINGS: A single portable KUB was obtained. There is no pathologic bowel dilatation. There are postsurgical changes present within the lumbar spine. There are no calcifications suspicious for renal calculi. IMPRESSION: No evidence of pathologic bowel dilatation. Electronically signed by: Jeb Joshua M.D. 02/07/2017 2:05 PM Dictated Date/Time: 02/07/2017 2:04 PM
[2017-02-07 14:09] LABS: ALT/SGPT 14 U/L (12-78); AST/SGOT 11 U/L (15-37); BLOOD UREA NITROGEN 27 mg/dl (7-18); BUN/CREATININE RATIO 29.5 (10-20); CALCIUM 8.6 mg/dl (8.5-10.1); CARBON DIOXIDE 28 mmol/L (21-32); CHLORIDE 105 mmol/L (98-107); CREATININE 0.91 mg/dl (0.60-1.40); GLUCOSE 118 mg/dl (70-99); POTASSIUM 4.2 mmol/L (3.5-5.1); SODIUM 140 mmol/L (136-145)
[2017-02-07 14:10] LABS: BASO % 0.3 %; BASO ABS # 0.03 K/uL (0-0.2); COMPLETE YES; EOS % 2.6 %; HEMATOCRIT 34.9 % (42-52); IG% 0.2 %; LYMPH % 41.6 %; LYMPH ABS # 3.59 K/uL (1.2-3.4); MEAN CELL VOLUME 97.8 fL (80-100); MEAN CORPUSCULAR HEMOGLOBIN 32.5 pg (25-34); MEAN CORPUSCULAR HGB CONC 33.2 g/dl (32-36); MEAN PLATELET VOLUME 8.5 fL (7.4-10.4); MONO % 7.4 %; NEUT % 47.9 %; PLATELET COUNT 180 K/uL (130-400); RED BLOOD COUNT 3.57 M/uL (4.7-6.1); WHITE BLOOD COUNT 8.62 K/uL (4.8-10.8)
[2017-02-07] MEDS ORDERED: SODIUM CHLORIDE 0.9% 1000ML 1,000 ML IV STA (14:11)
[2017-02-07 14:13] LABS: ALB/GLOB RATIO 0.7 (0.9-2); ALKALINE PHOSPHATASE 114 U/L (45-117)
[2017-02-07 14:15] LABS: PARTIAL THROMBOPLASTIN RATIO 1.1; PROTHROMBIN TIME (PATIENT) 10.8 SECONDS (9.0-12.0)
[2017-02-07] MEDS ORDERED: CLOP1TAB15 PO (14:19)
[2017-02-07] MEDS ORDERED: LISI-729 PO (14:19)
[2017-02-07] MEDS ORDERED: ACET-1256 PO (14:19)
[2017-02-07] MEDS ORDERED: SENN-61 PO (14:19)
[2017-02-07] MEDS ORDERED: ATOR-26 PO (14:19)
--- NOTE | 2017-02-07 15:09 | DIAGNOSTIC IMAGING REPORT ---
HEAD CT NONCONTRAST CT DOSE: 812.17 mGycm HISTORY: lethargic, Hx CVA ?CVA TECHNIQUE: Multiaxial CT images of the head were performed without the use of intravenous contrast. Automated exposure control was utilized for this study. Comparison: Head CT 12/17/2016. Findings: The paranasal sinuses and mastoid air cells are clear. The calvarium and skull base are intact. There is no mass, midline shift, acute infarct. White matter hypodensity is nonspecific but suggestive of microvascular ischemic change. The ventricles and sulci demonstrate mild age-related involutional changes. Old infarction within the right frontal lobe and bilateral parietal lobes. There has been interval development of serpiginous areas of increased density within the old right parietal infarct. This favors cortical laminar necrosis/petechial hemorrhage. Impression: Multiple old infarcts. There has been interval development of serpiginous areas of increased density within the old right parietal infarct. This favors cortical laminar necrosis/petechial hemorrhage. Consider 24-hour head CT followed to ensure stability. Electronically signed by: Markie Birmingham M.D. 02/07/2017 3:07 PM Dictated Date/Time: 02/07/2017 3:00 PM
--- NOTE | 2017-02-07 16:07 | EMERGENCY ROOM VISIT NOTE ---
History First contact with patient: 13:34 Chief Complaint: LETHARGIC Stated Complaint: AMS/LETHARGIC Nursing Triage Summary: Patient presents to ED via ambulance from home. Patient's states "all night he was in and out of consciousness". Patient has hx of CVA x 2. Patient lethargic. Per EMS patient's oxygen level was in the 80's and patient was initially unresponsive. Patient responds to voice and tactile stimuli. Patient has indwelling catheter - per patient's patient has had catheter for 2 months and it has only been changed x 1 and is due to be changed again tomorrow. Afebrile. Patient alert to person and place. History of Present Illness The patient is a 81 year old male with Hx of CVA and [place] who presents to the Emergency Room with complaints of altered mental status. Last night his noticed an acute change in his mental status. 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 He is bed bound and she notes he sleeps most of the time therefore she is unsure of the time he became worse. He also usually resists them moving him around on the bed but he stopped doing this yesterday and today. He has not been eating and drinking, previously verbalizing that he is unable to open his mouth. His mouth and tongue have been very dry and urine more concentrated. He has had a ferguson catheter in place for the 2 months and it was due to be changed tomorrow. She denies he has had a fevers, chills, complaining of any pain (chest/abdomen/ extremity), shortness of breath, headache. Review of Systems See HPI for pertinent positives & negatives. A total of 10 systems reviewed and were otherwise negative. Past Medical/Surgical History Medical Problems: (1) CAD (coronary artery disease) (2) Chest pain (3) Confusion (4) CVA (cerebral infarction) (5) Diabetes (6) Hemorrhagic stroke (7) Hyperlipidemia Family History Diabetes mellitus Hypertension Social History Smoking Status: Unknown if Ever Smoked Alcohol Use: none Drug Use: none Marital Status: Housing Status: lives with family Occupation Status: retired Current/Historical Medications Scheduled Aspirin (Aspirin Ec), 81 MG PO DAILY Atorvastatin (Lipitor), 80 MG PO HS Carvedilol (Carvedilol), 3.125 MG PO BID Clopidogrel (Plavix), 75 MG PO DAILY Finasteride (Finasteride), 5 MG PO DAILY Lisinopril (Zestril), 5 MG PO DAILY Metformin Hcl (Glucophage), 500 MG PO DAILY Senna (Senokot), 17.2 MG PO BID Scheduled PRN Acetaminophen (Tylenol), 500 MG PO Q4 PRN for Pain Nitroglycerin (Nitrostat), 0.4 MG PO UD PRN for Chest Pain Allergies Coded Allergies: No Known Allergies (Verified , 02/07/17) Physical Exam Vital Signs Date Time Temp Pulse Resp B/P (MAP) Pulse Ox O2 Delivery O2 Flow Rate FiO2 02/07/17 16:43 54 17 98 02/07/17 16:32 139/70 02/07/17 16:13 48 9 97 02/07/17 16:02 136/66 02/07/17 15:43 45 12 97 02/07/17 15:38 45 11 96 02/07/17 15:32 108/63 02/07/17 15:20 128/71 02/07/17 15:20 43 128/71 97 02/07/17 14:33 124/83 02/07/17 14:25 54 99 02/07/17 14:01 145/80 02/07/17 13:55 48 17 100 02/07/17 13:54 51 12 127/66 100 Room Air 02/07/17 13:50 97 Room Air 02/07/17 13:38 59 02/07/17 13:35 36.7 61 14 137/79 97 Room Air 02/07/17 13:31 127/66 Pain Rating (0-10): 0 Physical Exam VITAL SIGNS: were reviewed as above GENERAL: no acute distress, responsive to voice, appears cachetic HEAD: Normocephalic and atraumatic EYES: unable to perform (EOMI due to patient cognition), pupils equal 3mm and reactive to light OROPHARYNX: very dry tongue and mucus membranes NECK: Supple, no adenopathy, bilateral bruits heard but likely radiation of cardiac systolic murmur LUNGS: clear to auscultation, no accessory muscle use HEART: Regular rate and rhythm, heart sounds 1+2, LUSB systolic murmur ABDOMEN: Soft and nontender, bowel sounds normal BACK: no CVA tenderness EXTREMITIES: Cool but cap refill <2 seconds in peripheries, no calf tenderness/ swelling, no pedal edema. NEUROLOGICALLY: Awake alert but staring into the distance. GCS 15. Difficult to ascertain acute vs. chronic pathology. He is able to move his right hand off the bed, unable to move left arm or hand. Able to move his toes to command b/l but is unable to move his legs otherwise. Plantars upgoing on right, downgoing on left. There is no facial droop. He can tell me his and his 's names, his , he understands he is in hospital. He takes a long time to come to his answers. Medical Decision & Procedures ER Provider Diagnostic Interpretation: KUB CLINICAL HISTORY: Acute change in mental status. Possible fecal impaction. Possible bowel obstruction. COMPARISON STUDY: No previous studies for comparison. FINDINGS: A single portable KUB was obtained. There is no pathologic bowel dilatation. There are postsurgical changes present within the lumbar spine. There are no calcifications suspicious for renal calculi. IMPRESSION: No evidence of pathologic bowel dilatation. Electronically signed by: Jeb Joshua M.D. 02/07/2017 2:05 PM Dictated Date/Time: 02/07/2017 2:04 PM CHEST ONE VIEW PORTABLE CLINICAL HISTORY: Acute change in mental status COMPARISON STUDY: 12/14/2016 FINDINGS: There are postsurgical changes of midline sternotomy. There is a mild scoliosis. The heart is at the upper limits of normal in size. There is no failure. There is no focal pulmonary consolidation. There are no pleural effusions. There are minor left perihilar atelectatic changes. There is borderline elevation left hemidiaphragm. There are postsurgical changes within the lumbar spine.[ IMPRESSION: No active disease in the chest. Electronically signed by: Jeb Joshua M.D. 02/07/2017 2:04 PM Dictated Date/Time: 02/07/2017 2:[address] CT DOSE: 812.17 mGycm HISTORY: lethargic, Hx CVA ?CVA TECHNIQUE: Multiaxial CT images of the head were performed without the use of intravenous contrast. Automated exposure control was utilized for this study. Comparison: Head CT 12/17/2016. Findings: The paranasal sinuses and mastoid air cells are clear. The calvarium and skull base are intact. There is no mass, midline shift, acute infarct. White matter hypodensity is nonspecific but suggestive of microvascular ischemic change. The ventricles and sulci demonstrate mild age-related involutional changes. Old infarction within the right frontal lobe and bilateral parietal lobes. There has been interval development of serpiginous areas of increased density within the old right parietal infarct. This favors cortical laminar necrosis/petechial hemorrhage. Impression: Multiple old infarcts. There has been interval development of serpiginous areas of increased density within the old right parietal infarct. This favors cortical laminar necrosis/petechial hemorrhage. Consider 24-hour head CT followed to ensure stability. Electronically signed by: Markie Birmingham M.D. 02/07/2017 3:07 PM Dictated Date/Time: 02/07/2017 3:00 PM Laboratory Results Test 02/07/17 13:00 02/07/17 15:53 Prothrombin Time 10.8 SECONDS (9.0-12.0) Prothromb Time International Ratio 1.0 (0.9-1.1) Activated Partial Thromboplast Time 27.4 SECONDS (21.0-31.0) Partial Thromboplastin Ratio 1.1 Estimated Average Glucose 157 mg/dl Hemoglobin A1c 7.1 % (4.5-5.6) Total Bilirubin 2.3 mg/dl (0.2-1) Aspartate Amino Transf (AST/SGOT) 11 U/L (15-37) Alanine Aminotransferase (ALT/SGPT) 14 U/L (12-78) Alkaline Phosphatase 114 U/L (45-117) Troponin I < 0.015 ng/ml (0-0.045) Total Protein 6.5 gm/dl (6.4-8.2) Albumin 2.7 gm/dl (3.4-5.0) Globulin 3.8 gm/dl (2.5-4.0) Albumin/Globulin Ratio 0.7 (0.9-2) Urine Color YELLOW Urine Appearance TURBID (CLEAR) Urine pH 5.5 (4.5-7.5) Urine Specific [place] 1.012 (1.000-1.030) Urine Protein 1+ (NEG) Urine Glucose (UA) NEG (NEG) Urine Ketones NEG (NEG) Urine Occult Blood 3+ (NEG) Urine Nitrite NEG (NEG) Urine Bilirubin NEG (NEG) Urine Urobilinogen POS (NEG) Urine Leukocyte Esterase LARGE (NEG) Urine WBC (Auto) >30 /hpf (0-5) Urine RBC (Auto) 10-30 /hpf (0-4) Urine Hyaline Casts (Auto) 5-10 /lpf (0-5) Urine Epithelial Cells (Auto) >30 /lpf (0-5) Urine Bacteria (Auto) 4+ (NEG) Urine Pathogenic Casts /lpf (0) Urine Yeast (Auto) (NONE PRSENT) Medications Administered Medications (Trade) Dose Ordered Sig/Hiram Route Start Time Stop Time Status Last Admin Dose Admin Sodium Chloride 500 ml @ 999 mls/hr Q31M STAT IV 02/07/17 13:39 02/07/17 14:09 DC 02/07/17 13:48 999 MLS/HR Sodium Chloride 1,000 ml @ 999 mls/hr Q1H1M STAT IV 02/07/17 14:11 02/07/17 15:11 DC 02/07/17 14:46 999 MLS/HR Levofloxacin (Levaquin / D5W) 750 mg NOW ONCE IV 02/07/17 16:15 02/07/17 16:16 DC 02/07/17 16:15 750 MG ECG Indication: altered mental status Rate (beats per minute): 61 Rhythm: normal sinus Findings: no acute ischemic change Change: no significant change ED Course 13:35 Complete history and physical performed 13:[address] Jimenez 15:[address] Gresham who advised stopping his aspirin and plavix with CT scan in 24 hours 15:37 Discussed with [facility] hospitalist group (Dr Treadwell) who accepted the patient to evaluate for admission Medical Decision Prior records/ancillary studies reviewed and summarized above. Nursing notes reviewed. Additional history obtained from his The patient's history was concerning for altered mental status. Differential diagnosis: Etiologies such as metabolic, infection, hypoglycemia, electrolyte abnormalities , cardiac sources, intracerebral event, toxicologic, neurologic, as well as others were entertained. Physical examination: As above. Difficult to ascertain chronic vs. acute vs. his understanding of the exam ER treatment provided: IV Lock Normal saline hydration at 999 MLS/HR Levaquin for possible UTI On reassessment the patients mental status improved. Diagnostics interpretation by me: ECG: NSR, no atrial fibrillation or acute ischemic changes The labs revealed elevated BUN consistent with dehydration and mild chronic anemia Imaging studies: CT head as above Given the above diagnostic work-up and treatment, this episode appears to be consistent with hemorrhagic transformation of previous stroke. Further treatment will be required. Patient was discussed the the neurology (Dr Gresham) and recommended stopping ASA and plavix with follow up CT in 24 hours. Consultation: A consultation was placed with the [facility] hospitalist. The case was discussed and diagnostics were reviewed. The patient was evaluated in the ER for further treatment. Consults Time Called: 15:29 Consulting Physician: Dr Gresham Returned Call: 15:31 stop ASA and Plavix CT head in 24 hours Consult Neurology Additional Consults: Time Called: 15:34 Consulted Physician: [facility] Hospitalist (Dr Saavedra) Returned Call: 15:36 Additional Comments: Being evaluated for admission Impression Primary Impression: CVA (cerebrovascular accident due to intracerebral hemorrhage) Additional Impressions: UTI (urinary tract infection) Altered mental state Departure Information Dispostion Being Evaluated By Hospitalist Condition FAIR Referrals Juventino Spencer M.D. (PCP) Patient Instructions My [facility] Resident Tracking Resident Involvement: Resident Care Provided Care Provided: Adult ED Problem Qualifiers Additional Impressions:
[2017-02-07 16:13] LABS: URINE APPEARANCE TURBID (CLEAR); URINE BILIRUBIN NEG (NEG); URINE EPITHELIAL CELL AUTO >30 /lpf (0-5); URINE NITRITE NEG (NEG); URINE PH 5.5 (4.5-7.5); URINE SPECIFIC GRAVITY 1.012 (1.000-1.030); UROBILINOGEN POS (NEG)
[2017-02-07 16:15] LABS: MANUAL MICROSCOPIC REQUIRED? NO; REVIEW REQ? YES; URINE COLOR YELLOW
[2017-02-07] MEDS ORDERED: LEVAQUIN 750MG / 150ML D5W IV ONE (16:15)
[2017-02-07] MEDS ORDERED: MAGNESIUM HYDROXIDE SUSP 30 ML UDC PO PRN (16:30)
[2017-02-07] MEDS ORDERED: ONDANSETRON INJ 2 MG/ML 2 ML VIAL IV PRN (16:30)
[2017-02-07] MEDS ORDERED: ALUMINUM/MAGNESIUM/SIMETH (MAALOX MAX) 30 ML UDC PO PRN (16:30)
[2017-02-07] MEDS ORDERED: PHARMACIST DISCHARGE MED REC CONSULT PRN (16:30)
[2017-02-07] MEDS ORDERED: POLYETHYLENE (MIRALAX) 17 GM PACK PO PRN (16:30)
--- NOTE | 2017-02-07 16:52 | History and Physical ---
History & Physical Date & Time of Service: Feb 07, 2017 at 16:17 Chief Complaint: Ams/Lethargic Primary Care Physician: Juventino Spencer M.D. History of Present Illness Patient is a 81 year old male that presents to the ED with a 1 day history of altered mental status. His states that last night she was unable to arouse the patient other than to get responses of yes or no, as compared to his usual mental status which includes full responses. This morning he continued to have poor response to arousal and was seen by his home health who contacted his family physician that recommended he come to the Emergency Department. The patient has a recent history of 2 strokes with the most recent occurring in November. The patient was seen at [facility] for AMS in November and was found to have a UTI on admission 09/30 to his indwelling catheter. He was later found to have a stroke during the admission. He was then transferred to [place], followed by Rehab at [facility], and then a stay at [facility]. The patient had been home for the last week when the symptoms began lat night. The patient has been improving since being taken by EMS this afternoon and has been more responsive and alert. Past Medical/Surgical History Medical Problems: (1) CAD (coronary artery disease) Status: Chronic (2) CVA (cerebral infarction) Status: Chronic (3) Diabetes Status: Chronic (4) Hyperlipidemia Status: Chronic Family History Diabetes mellitus Hypertension Social History Smoking Status: Unknown if Ever Smoked Drug Use: none Marital Status: Occupational Status: retired Immunizations History of Influenza Vaccine: Yes Influenza Vaccine Date: Jun 05, 2008 History of Tetanus Vaccine?: Yes Tetanus Immunization Date: Aug 05, 2005 History of Pneumococcal: Yes History of Hepatitis B Vaccine: No Multi-Drug Resistant Organisms History of MDRO: No Allergies Coded Allergies: No Known Allergies (Verified , 02/07/17) Home Medications Scheduled Aspirin (Aspirin Ec), 81 MG PO DAILY Atorvastatin (Lipitor), 80 MG PO HS Carvedilol (Carvedilol), 3.125 MG PO BID Clopidogrel (Plavix), 75 MG PO DAILY Finasteride (Finasteride), 5 MG PO DAILY Lisinopril (Zestril), 5 MG PO DAILY Metformin Hcl (Glucophage), 500 MG PO DAILY Senna (Senokot), 17.2 MG PO BID Scheduled PRN Acetaminophen (Tylenol), 500 MG PO Q4 PRN for Pain Nitroglycerin (Nitrostat), 0.4 MG PO UD PRN for Chest Pain Review of Systems Patient was confused at the time of examination and I was unable to obtain a full ROS Physical Exam Vital Signs Date Time Temp Pulse Resp B/P (MAP) Pulse Ox O2 Delivery O2 Flow Rate FiO2 02/07/17 15:38 45 11 96 02/07/17 15:32 108/63 02/07/17 15:20 128/71 02/07/17 15:20 43 128/71 97 02/07/17 14:33 124/83 02/07/17 14:25 54 99 02/07/17 14:01 145/80 02/07/17 13:55 48 17 100 02/07/17 13:54 51 12 127/66 100 Room Air 02/07/17 13:50 97 Room Air 02/07/17 13:38 59 02/07/17 13:35 36.7 61 14 137/79 97 Room Air 02/07/17 13:31 127/66 General Appearance: no apparent distress, + thin Head: normocephalic, atraumatic Eyes: normal inspection, PERRL, sclerae normal Respiratory/Chest: chest non-tender, lungs clear, normal breath sounds Cardiovascular: regular rate, rhythm, no edema, normal peripheral pulses, + systolic murmur Abdomen/GI: normal bowel sounds, non tender, soft Back: normal inspection, no CVA tenderness Extremities/Musculoskelatal: normal inspection, no calf tenderness Neurologic/Psych: + disoriented, + pertinent finding (Right sided strength 2/5 , left sided strength 4/5, no facial droop, unable to test cranial nerves due to confusion) Diagnostics Laboratory Results Results Past 24 Hours Test 02/07/17 13:00 02/07/17 15:53 Range/Units White Blood Count 8.62 4.8-10.8 K/uL Red Blood Count 3.57 4.7-6.1 M/uL Hemoglobin 11.6 14.0-18.0 g/dL Hematocrit 34.9 42-52 % Mean Corpuscular Volume 97.8 80-100 fL Mean Corpuscular Hemoglobin 32.5 25-34 pg Mean Corpuscular Hemoglobin Concent 33.2 32-36 g/dl Platelet Count 180 130-400 K/uL Mean Platelet Volume 8.5 7.4-10.4 fL Neutrophils (%) (Auto) 47.9 % Lymphocytes (%) (Auto) 41.6 % Monocytes (%) (Auto) 7.4 % Eosinophils (%) (Auto) 2.6 % Basophils (%) (Auto) 0.3 % Neutrophils # (Auto) 4.12 1.4-6.5 K/uL Lymphocytes # (Auto) 3.59 1.2-3.4 K/uL Monocytes # (Auto) 0.64 0.11-0.59 K/uL Eosinophils # (Auto) 0.22 0-0.5 K/uL Basophils # (Auto) 0.03 0-0.2 K/uL RDW Standard Deviation 53.8 36.4-46.3 fL RDW Coefficient of Variation 15.0 11.5-14.5 % Immature Granulocyte % (Auto) 0.2 % Immature Granulocyte # (Auto) 0.02 0.00-0.02 K/uL Prothrombin Time 10.8 9.0-12.0 SECONDS Prothromb Time International Ratio 1.0 0.9-1.1 Activated Partial Thromboplast Time 27.4 21.0-31.0 SECONDS Partial Thromboplastin Ratio 1.1 Sodium Level 140 136-145 mmol/L Potassium Level 4.2 3.5-5.1 mmol/L Chloride Level 105 98-107 mmol/L Carbon Dioxide Level 28 21-32 mmol/L Anion Gap 7.0 3-11 mmol/L Blood Urea Nitrogen 27 7-18 mg/dl Creatinine 0.91 0.60-1.40 mg/dl Est Creatinine Clear Calc Drug Dose 57.4 ml/min Estimated GFR () 91.3 Estimated GFR (Non- 78.8 BUN/Creatinine Ratio 29.5 10-20 Random Glucose 118 70-99 mg/dl Calcium Level 8.6 8.5-10.1 mg/dl Total Bilirubin 2.3 0.2-1 mg/dl Aspartate Amino Transf (AST/SGOT) 11 15-37 U/L Alanine Aminotransferase (ALT/SGPT) 14 12-78 U/L Alkaline Phosphatase 114 45-117 U/L Troponin I < 0.015 0-0.045 ng/ml Total Protein 6.5 6.4-8.2 gm/dl Albumin 2.7 3.4-5.0 gm/dl Globulin 3.8 2.5-4.0 gm/dl Albumin/Globulin Ratio 0.7 0.9-2 Urine Color YELLOW Urine Appearance TURBID CLEAR Urine pH 5.5 4.5-7.5 Urine Specific [place] 1.012 1.000-1.030 Urine Protein 1+ NEG Urine Glucose (UA) NEG NEG Urine Ketones NEG NEG Urine Occult Blood 3+ NEG Urine Nitrite NEG NEG Urine Bilirubin NEG NEG Urine Urobilinogen POS NEG Urine Leukocyte Esterase LARGE NEG Microbiology Results 02/07/17 Blood Culture, Received Pending 02/07/17 Blood Culture, Received Pending 02/07/17 Urine Culture, Received Pending Impression Assessment and Plan Patient is an 81 year old male that presents with hemorrhagic stroke 1) Hemorrhagic Stroke - Reviewed Head CT Head - Area of increased density within the old right parietal infarct - Favoring cortical laminar necrosis/petechial hemorrhage - Neurology Consult - Stroke Protocol - Discontinued Aspirin and Plavix 2) UTI - UA shows blood and leuk esterase along with previous history of UTI along with indwelling ferguson - Previous UTI was pierce sensitive - 1 dose of Levaquin in ED - Levaquin 500mg IV daily - Changed urinary catheter in ED 3) Type 2 Diabetes - Hold Metformin - Sliding scale insulin with Novolog 4) Hypertension - Resume lisinopril pending dysphagia study 5) History of CAD - Holding Aspirin 2/2 stroke - Resume Carvedilol pending dysphagia study 6) BPH - Resume Finasteride pending dysphagia study 7) DVT Prophylaxis - SCD 8) Code Status - DNR 9) Disposition - Admit to Telemetry Level of Care Telemetry Resuscitation Status DO NOT RESUSCITATE VTE Prophylaxis VTE Risk Assessment Done? Y/N: Yes Risk Level: High Given or contraindicated: SCD's
[2017-02-07] MEDS ORDERED: GLUCAGON FOR INJ 1 MG VIAL SQ PRN (17:30)
[2017-02-07] MEDS ORDERED: DEXTROSE 50% 50 ML SYR IV PRN (17:30)
[2017-02-07] MEDS ORDERED: GLUCOSE 40% GEL 15 GM TUBE PO PRN (17:30)
[2017-02-07] MEDS ORDERED: ACETAMINOPHEN 500 MG TAB PO PRN (17:30)
[2017-02-07] MEDS ORDERED: GLUCOSE 10 TABS/TUBE PO PRN (17:30)
[2017-02-07 18:04] VITALS: BP 133/81; PULSE 64; TEMP 36.5; O2SAT 97; Ht 167.6 cm; Wt 67.9 kg
[2017-02-07] MEDS: ATORVASTATIN 40 MG TAB PO SCH (21:00)
[2017-02-07] MEDS: INSULIN ASPART 100 UNITS/ML 3 ML PEN SC SCH (21:00)
[2017-02-07] MEDS: CARVEDILOL 3.125 MG TAB PO SCH (21:00)
[2017-02-08] VITALS (9 sets, daily range): BP systolic 118–166; BP diastolic 71–88; PULSE 58–86; TEMP 36.2–37; O2SAT 96–99
[2017-02-08 06:08] LABS: BASO % 0.4 %; BASO ABS # 0.03 K/uL (0-0.2); COMPLETE YES; EOS % 4.1 %; HEMATOCRIT 36.1 % (42-52); IG% 0.1 %; LYMPH % 30.6 %; LYMPH ABS # 2.25 K/uL (1.2-3.4); MEAN CELL VOLUME 97.3 fL (80-100); MEAN CORPUSCULAR HEMOGLOBIN 30.5 pg (25-34); MEAN CORPUSCULAR HGB CONC 31.3 g/dl (32-36); MEAN PLATELET VOLUME 8.1 fL (7.4-10.4); MONO % 6.4 %; NEUT % 58.4 %; PLATELET COUNT 165 K/uL (130-400); RED BLOOD COUNT 3.71 M/uL (4.7-6.1); WHITE BLOOD COUNT 7.35 K/uL (4.8-10.8)
[2017-02-08 06:44] LABS: BUN/CREATININE RATIO 33.2 (10-20); CALCIUM 8.3 mg/dl (8.5-10.1); CREATININE 0.71 mg/dl (0.60-1.40)
[2017-02-08 06:47] LABS: ESTIMATED AVERAGE GLUCOSE 157 mg/dl; HA1C FLAG Normal (Normal)
[2017-02-08] MEDS: INSULIN ASPART 100 UNITS/ML 3 ML PEN SC SCH ×4 (07:00→23:27)
[2017-02-08] MEDS ORDERED: HydrALAZINE HCL 20 MG/ML VIAL IV. PRN (08:45)
[2017-02-08] MEDS ORDERED: LISINOPRIL 5 MG TAB PO SCH (09:00)
[2017-02-08] MEDS: FINASTERIDE 5 MG TAB PO SCH (09:00)
[2017-02-08] MEDS: CARVEDILOL 3.125 MG TAB PO SCH ×2 (09:00→23:35)
--- NOTE | 2017-02-08 10:38 | Neurology Consultation ---
Neurology Consultation Date of Consultation: Feb 08, 2017. Attending Physician: Joseph Keene D.O. Primary Care Physician: Juventino Spencer M.D. Reason for Consultation: Stroke History of Present Illness Source: patient, family, hospital records The patient is an 81-year-old male with a chief complaint of confusion and poor responsiveness that began yesterday morning. The symptoms have been improving. Past medical history notable for multiple old cerebral infarcts with a chronic right hemiparesis related to a perioperative stroke in 2013 and a more recent right parietal lobe stroke with left tyler-neglect diagnosed this November. The patient was seen by Dr. Plaza during his November admission to [facility]. Plavix was added to his medication regimen at that time. A CT of the head completed during this most recent hospitalization reveals a serpiginous area of petechial hemorrhage within the previously identified right parietal lobe infarct area did multiple old chronic infarcts were again observed involving the right frontal lobe, right parietal lobe, and left parieto- occipital junction. Electrocardiogram reveals a normal sinus rhythm. The patient is an unreliable historian, he is not forthcoming with details, he is abulic. Patient's is at bedside. Past Medical/Surgical History Medical Problems: (1) Acute chest pain Status: Acute (2) Altered mental state Status: Acute (3) Altered mental status Status: Acute (4) CVA (cerebrovascular accident due to intracerebral hemorrhage) Status: Acute (5) UTI (urinary tract infection) Status: Acute Family History Family history notable for diabetes mellitus and hypertension Social History Smoking Status: Never smoker Drug Use: none Marital Status: Housing Status: lives with family Occupation Status: retired Allergies Coded Allergies: No Known Allergies (Verified , 02/07/17) Current Inpatient Medications Current Inpatient Medications Medications (Trade) Dose Ordered Sig/Hiram Route Start Time Stop Time Status Last Admin Dose Admin Miscellaneous Information (Pharmacist Discharge Med Rec Consult) 1 ea UD PRN N/A 02/07/17 16:30 03/09/17 16:29 Al Hydrox/Mg Hydrox/Simethicone (Maalox Max Susp) 15 ml Q4H PRN PO 02/07/17 16:30 03/09/17 16:29 Magnesium Hydroxide (Milk Of Magnesia Susp) 30 ml Q12H PRN PO 02/07/17 16:30 03/09/17 16:29 Ondansetron HCl (Zofran Inj) 4 mg Q6H PRN IV 02/07/17 16:30 03/09/17 16:29 Polyethylene (Miralax Powder Packet) 17 gm DAILY PRN PO 02/07/17 16:30 03/09/17 16:29 Acetaminophen (Tylenol Tab) 500 mg Q4 PRN PO 02/07/17 17:30 03/09/17 17:29 Atorvastatin Calcium (Lipitor Tab) 80 mg HS PO 02/07/17 21:00 03/09/17 20:59 Carvedilol (Coreg Tab) 3.125 mg BID PO 02/07/17 21:00 03/09/17 20:59 Finasteride (Proscar Tab) 5 mg DAILY PO 02/08/17 09:00 03/10/17 08:59 Lisinopril (Zestril Tab) 5 mg DAILY PO 02/08/17 09:00 03/10/17 08:59 Insulin Aspart (novoLOG ASPART) SLIDING SCALE ACHS SC 02/07/17 21:00 03/09/17 20:59 Glucose (Glucose 40% Gel) 15-30 GRAMS 15 GRAMS... UD PRN PO 02/07/17 17:30 03/09/17 17:29 Glucose (Glucose Chew Tab) 4-8 Tablets 4 Tabl... UD PRN PO 02/07/17 17:30 03/09/17 17:29 Dextrose (Dextrose 50% 50ML Syringe) 25-50ML OF 50% DW IV FOR... UD PRN IV 02/07/17 17:30 03/09/17 17:29 Glucagon (Glucagon Inj) 1 mg UD PRN SQ 02/07/17 17:30 03/09/17 17:29 Hydralazine HCl (HydrALAZINE INJ) 10 mg Q4 PRN IV. 02/08/17 08:45 03/10/17 08:44 Review of Systems A review of systems is limited and probably unreliable in this patient. However , he denies headache, vision change, new weakness, or sensory loss. A full 10 point review of systems was obtained and this patient with pertinent positives and negatives described in the history of present illness and listed above. All other systems reviewed and are negative. Physical Exam Vital Signs (Past 24 Hrs): Date Time Temp Pulse Resp B/P (MAP) Pulse Ox O2 Delivery O2 Flow Rate FiO2 02/08/17 08:01 99 Room Air 02/08/17 07:36 36.7 71 20 151/80 (103) 99 Room Air 02/08/17 04:00 Room Air 02/08/17 03:59 36.5 66 20 134/76 (95) 96 Room Air 02/08/17 00:09 36.4 62 18 125/71 (89) 97 Room Air 02/08/17 00:00 Room Air 02/07/17 20:00 Room Air 02/07/17 18:04 36.5 64 16 133/81 97 Room Air 02/07/17 17:34 58 16 129/73 97 Room Air 02/07/17 17:05 57 12 98 02/07/17 17:01 123/65 02/07/17 16:43 54 17 98 02/07/17 16:32 139/70 02/07/17 16:13 48 9 97 02/07/17 16:02 136/66 02/07/17 15:43 45 12 97 02/07/17 15:38 45 11 96 02/07/17 15:32 108/63 02/07/17 15:20 128/71 02/07/17 15:20 43 128/71 97 02/07/17 14:33 124/83 02/07/17 14:25 54 99 02/07/17 14:01 145/80 02/07/17 13:55 48 17 100 02/07/17 13:54 51 12 127/66 100 Room Air 02/07/17 13:50 97 Room Air 02/07/17 13:38 59 02/07/17 13:35 36.7 61 14 137/79 97 Room Air 02/07/17 13:31 127/66 Patient is a chronically ill-appearing elderly male. He is lying in bed, leaning to the left. The patient is mildly lethargic. He is oriented to person and hospital only. Recent memory impaired. Remote memory intact. Attention and concentration are impaired. Patient unable to spell world backwards. Patient provides limited, minimal, spontaneous speech. He is able to name objects and repeat phrases, however. Vocabulary normal. Testing of visual rooney reveals an element of left visual neglect. Pupils equal round reactive to light and accommodation. Eye movements normal. Patient prefers not to look into the left, however. Facial sensation intact. There is normal facial symmetry and strength. Hearing grossly intact. Palate elevates to midline. Tongue protrudes to midline. Shoulder shrug intact. Sensation intact to vibration, light touch, temperature, and proprioception. There is an element of left hemisensory neglect , however. Patient extinguishes to double simultaneous stimulation on the left. Deep tendon reflexes are generally increased although more so for the right lower limb. The right plantar response is upgoing. Left plantar response equivocal. There is mild dysmetria with finger to nose on the left. There is a parietal drift on the left as well. Patient unable to perform heel to [place] on the right due to significant weakness. Ophthalmoscopic examination reveals normal-appearing optic disks and posterior segments, no papilledema or hemorrhages. Carotid pulses normal bilaterally, no bruits. Gait and station cannot be tested. There is normal muscle strength testing of both upper limbs. There is significant weakness of the right lower extremity, 2-3/4. Muscle tone normal throughout. No atrophy. No abnormal movements observed Laboratory Results Past 24 Hours: 02/08/17 05:55 Red Blood Count 3.71, Mean Corpuscular Volume 97.3, Mean Corpuscular Hemoglobin 30.5, Mean Corpuscular Hemoglobin Concent 31.3, Mean Platelet Volume 8.1, Neutrophils (%) (Auto) 58.4, Lymphocytes (%) (Auto) 30.6, Monocytes (%) (Auto) 6.4, Eosinophils (%) (Auto) 4.1, Basophils (%) (Auto) 0.4, Neutrophils # (Auto) 4.29, Lymphocytes # (Auto) 2.25, Monocytes # (Auto) 0.47, Eosinophils # (Auto) 0.30, Basophils # (Auto) 0.03 02/08/17 05:55 Test 02/07/17 13:00 02/07/17 15:53 02/08/17 05:55 02/08/17 06:46 Prothrombin Time 10.8 SECONDS (9.0-12.0) Prothromb Time International Ratio 1.0 (0.9-1.1) Activated Partial Thromboplast Time 27.4 SECONDS (21.0-31.0) Partial Thromboplastin Ratio 1.1 Estimated Average Glucose 157 mg/dl Hemoglobin A1c 7.1 % (4.5-5.6) Total Bilirubin 2.3 mg/dl (0.2-1) Aspartate Amino Transf (AST/SGOT) 11 U/L (15-37) Alanine Aminotransferase (ALT/SGPT) 14 U/L (12-78) Alkaline Phosphatase 114 U/L (45-117) Troponin I < 0.015 ng/ml (0-0.045) Total Protein 6.5 gm/dl (6.4-8.2) Albumin 2.7 gm/dl (3.4-5.0) Globulin 3.8 gm/dl (2.5-4.0) Albumin/Globulin Ratio 0.7 (0.9-2) Urine Color YELLOW Urine Appearance TURBID (CLEAR) Urine pH 5.5 (4.5-7.5) Urine Specific [place] 1.012 (1.000-1.030) Urine Protein 1+ (NEG) Urine Glucose (UA) NEG (NEG) Urine Ketones NEG (NEG) Urine Occult Blood 3+ (NEG) Urine Nitrite NEG (NEG) Urine Bilirubin NEG (NEG) Urine Urobilinogen POS (NEG) Urine Leukocyte Esterase LARGE (NEG) Urine WBC (Auto) >30 /hpf (0-5) Urine RBC (Auto) 10-30 /hpf (0-4) Urine Hyaline Casts (Auto) 5-10 /lpf (0-5) Urine Epithelial Cells (Auto) >30 /lpf (0-5) Urine Bacteria (Auto) 4+ (NEG) Urine Pathogenic Casts /lpf (0) Urine Yeast (Auto) (NONE PRSENT) White Blood Count 7.35 K/uL (4.8-10.8) Red Blood Count 3.71 M/uL (4.7-6.1) Hemoglobin 11.3 g/dL (14.0-18.0) Hematocrit 36.1 % (42-52) Mean Corpuscular Volume 97.3 fL (80-100) Mean Corpuscular Hemoglobin 30.5 pg (25-34) Mean Corpuscular Hemoglobin Concent 31.3 g/dl (32-36) Platelet Count 165 K/uL (130-400) Mean Platelet Volume 8.1 fL (7.4-10.4) Neutrophils (%) (Auto) 58.4 % Lymphocytes (%) (Auto) 30.6 % Monocytes (%) (Auto) 6.4 % Eosinophils (%) (Auto) 4.1 % Basophils (%) (Auto) 0.4 % Neutrophils # (Auto) 4.29 K/uL (1.4-6.5) Lymphocytes # (Auto) 2.25 K/uL (1.2-3.4) Monocytes # (Auto) 0.47 K/uL (0.11-0.59) Eosinophils # (Auto) 0.30 K/uL (0-0.5) Basophils # (Auto) 0.03 K/uL (0-0.2) RDW Standard Deviation 52.3 fL (36.4-46.3) RDW Coefficient of Variation 14.7 % (11.5-14.5) Immature Granulocyte % (Auto) 0.1 % Immature Granulocyte # (Auto) 0.01 K/uL (0.00-0.02) Anion Gap 8.0 mmol/L (3-11) Est Creatinine Clear Calc Drug Dose 73.6 ml/min Estimated GFR () 102.0 Estimated GFR (Non- 88.0 BUN/Creatinine Ratio 33.2 (10-20) Calcium Level 8.3 mg/dl (8.5-10.1) Triglycerides Level 122 mg/dl (0-150) Cholesterol Level 86 mg/dl (0-200) HDL Cholesterol 29 mg/dl LDL Cholesterol, Calculated 33 mg/dl VLDL Cholesterol, Calculated 24 mg/dl Cholesterol/HDL Ratio 3.0 Bedside Glucose 100 mg/dl (70-99) Impression Multiple, chronic, bihemispheric cerebral infarcts. Most recent infarct diagnosed in November, affecting the right parietal lobe. Patient now presents with confusion and is found to have serpiginous petechial hemorrhage within the recently diagnosed right parietal lobe infarct. He has significant chronic weakness of the right lower extremity related to his left hemispheric stroke occurring in 2013. He has left-sided neglect related to his right parietal lobe stroke occurring in November. The extent to which this patient's altered mental status is related to the recently identified petechial hemorrhage is uncertain. Plan Continue to hold antiplatelet therapy Follow up with repeat CT of the head today. If possible, I would also like this patient to have a brain MRI completed to exclude a new interval infarct. I would also recommend a CT angiogram of the head and neck. Going forward, if there is no evidence of cardioembolic source, this patient will need to continue with antiplatelet therapy, assuming stability of the recently identified petechial hemorrhage. I would, however, recommend continuing with only a single antiplatelet agent. Continuing with Plavix monotherapy, in that context, would be appropriate.
--- NOTE | 2017-02-08 10:57 | DIAGNOSTIC IMAGING REPORT ---
HEAD CT NONCONTRAST CT DOSE: 614.27 mGy.cm HISTORY: hemorrhagic stroke TECHNIQUE: Multiaxial CT images of the head were performed without the use of intravenous contrast. Automated exposure control was utilized for this study. Comparison: Head CT 02/07/2017. Findings: The paranasal sinuses and mastoid air cells are clear. The calvarium and skull base are intact. Multiple old infarcts are again noted. No acute infarct, mass, or midline shift. No change in the serpiginous areas of increased density within the old right parietal infarct. Impression: No change in the serpiginous areas of increased density within the old right parietal infarct. This favors cortical laminar necrosis/petechial hemorrhage. An additional [address] follow-up is recommended. Electronically signed by: Markie Birmingham M.D. 02/08/2017 10:55 AM Dictated Date/Time: 02/08/2017 10:51 AM
[2017-02-08] MEDS ORDERED: OPTIRAY 320 IV PRN (11:30)
--- NOTE | 2017-02-08 11:34 | DIAGNOSTIC IMAGING REPORT ---
NECK CTA HISTORY: Hemorrhagic stroke. TECHNIQUE: Multiaxial CT images of the neck were performed following the intravenous administration of contrast to evaluate the major cervical vessels. Maximum intensity projection images were also obtained. All measurements were calculated based on NASCET criteria. COMPARISON STUDY: None. FINDINGS: The aortic arch and proximal great vessels are widely patent. Mild to moderate calcified plaque within the left carotid bifurcation. However, no significant stenosis within the left common or internal carotid arteries. No significant stenosis or occlusion identified within the right common or internal carotid arteries. The vertebral arteries are patent. The right vertebral artery is slightly hypoplastic in comparison to the left. There is a 3.3 cm heterogeneous right thyroid nodule. The central pulmonary arteries are patent. Degenerative changes within the cervical spine. IMPRESSION: No significant stenosis, occlusion, or dissection identified within the carotid or vertebral arteries. A 3.3 cm right thyroid nodule. Electronically signed by: Markie Birmingham M.D. 02/08/2017 11:32 AM Dictated Date/Time: 02/08/2017 11:27 AM
--- NOTE | 2017-02-08 11:44 | DIAGNOSTIC IMAGING REPORT ---
CTA ANGIOGRAPHY OF THE HEAD CLINICAL HISTORY: Stroke. COMPARISON STUDY: MRA of the head March 17, 2015. TECHNIQUE: Helical axial images of the head were obtained following uneventful intravenous administration of 119 cc of Optiray 320. FINDINGS: Multiple areas of encephalomalacia consistent with infarcts are again noted. Suspected laminar necrosis within the right parietal infarct is noted. Ventricular dilatation is due to atrophy. The basilar cisterns are patent. There are no extra-axial collections. There is extensive intracranial atherosclerosis with numerous moderate to severe multifocal stenoses. There is no abrupt vessel cut off. There is no intracranial aneurysm. There is severe stenosis of the right A1 segment as well as severe stenosis of the distal left middle cerebral artery. There is severe stenosis of the right P1 segment and moderate stenosis of the left P1 segment. IMPRESSION: 1. No abrupt vessel cut off or intracranial aneurysm. 2. Extensive intracranial atherosclerosis with multifocal severe stenoses within the intracranial circulation, as detailed above. 3. Redemonstration of multifocal infarcts, as shown on head CT. Electronically signed by: Will Montoya M.D. 02/08/2017 11:43 AM Dictated Date/Time: 02/08/2017 11:30 AM
--- NOTE | 2017-02-08 11:52 | Clinical Documentation Query ---
CLINICAL DOCUMENTATION QUERY Dr. NOONAN, In your clinical opinion is this patient being managed for: ( X ) UTI possibly due to chronic ferguson catheter ( ) Other explanation of clinical findings (Please Explain) ( ) Unable to determine (Please Define) ( ) Need to Discuss ( ) Not Agree The medical record reflects the following clinical findings, treatment, and risk factors. Clinical Indicators:Pt known to have chronic ferguson catheter x 2 months. Hx of UTI in Sep 2016 due to his indwelling catheter. UA with LE+, WBC >30 and bacteria +4. UA culture is pending. Treatment:IV fluids, IV levaquin, ferguson catheter changed in ER Risk Factors: age, chronic ferguson catheter, DM Please clarify and document your clinical opinion in the progress notes and discharge summary. Terms such as "probable", "suspected", "likely", "questionable", "possible", or "still to be ruled out" are acceptable. IF IN AGREEMENT, YOU MUST DOCUMENT ABOVE DIAGNOSTIC STATEMENT IN DAILY PROGRESS NOTES AND DISCHARGE SUMMARY. This document is not part of the patient's record. Thank You, Anita Phelps RN [phone]
--- NOTE | 2017-02-08 13:49 | Hospitalist Progress Note ---
Hospitalist Progress Note Date of Service Feb 08, 2017. (Zaina Durán ., LYDIA) Subjective Pt evaluation today including: conversation w/ patient, physical exam, chart review, lab review, review of studies, review of inpatient medication list Pain: None PO Intake: Tolerating PO diet Voiding: no voiding problems Patient is somewhat somnolent and slow to respond to questions. ROS is likely unreliable given patient's mental status, but per he is at baseline. Patient denies any chest pain, headache, vision changes, shortness of breath, abdominal pain, numbness or tingling. Additional Comments: Unable to obtain reliable ROS from patient due to mental status. Denies any pain, shortness of breath, numbness/tingling. No complaints. (Zaina Durán ., SILVINAC) Objective Vital Signs Date Time Temp Pulse Resp B/P (MAP) Pulse Ox O2 Delivery O2 Flow Rate FiO2 02/08/17 12:17 99 Room Air 02/08/17 11:37 36.2 82 18 132/77 (95) 96 02/08/17 08:01 99 Room Air 02/08/17 07:36 36.7 71 20 151/80 (103) 99 Room Air 02/08/17 04:00 Room Air 02/08/17 03:59 36.5 66 20 134/76 (95) 96 Room Air 02/08/17 00:09 36.4 62 18 125/71 (89) 97 Room Air 02/08/17 00:00 Room Air 02/07/17 20:00 Room Air 02/07/17 18:04 36.5 64 16 133/81 97 Room Air 02/07/17 17:34 58 16 129/73 97 Room Air 02/07/17 17:05 57 12 98 02/07/17 17:01 123/65 02/07/17 16:43 54 17 98 02/07/17 16:32 139/70 02/07/17 16:13 48 9 97 02/07/17 16:02 136/66 02/07/17 15:43 45 12 97 02/07/17 15:38 45 11 96 02/07/17 15:32 108/63 02/07/17 15:20 128/71 02/07/17 15:20 43 128/71 97 02/07/17 14:33 124/83 02/07/17 14:25 54 99 02/07/17 14:01 145/80 02/07/17 13:55 48 17 100 02/07/17 13:54 51 12 127/66 100 Room Air 02/07/17 13:50 97 Room Air 02/07/17 13:38 59 02/07/17 13:35 36.7 61 14 137/79 97 Room Air 02/07/17 13:31 127/66 (Zaina Durán ., PA-C) Physical Exam Notes: General appearance: Well-developed, well-nourished, no apparent distress Head: Normocephalic, atraumatic Eyes: +EOM exam limited as pt not fully participating. Normal inspection, PERRL, EOMI ENT: Normal ENT inspection, hearing grossly normal, pharynx normal Neck: Supple, no JVD, trachea midline Respiratory/Chest: Lungs clear to auscultation, normal breath sounds, no respiratory distress Cardiovascular: Regular rate & rhythm, no gallop, no murmur Abdomen/GI: Normal bowel sounds, non-tender, soft Extremities/Musculoskeletal: Normal inspection, no calf tenderness, no pedal edema Neurological/Psych: +Left sided weakness. LLE 2/5 strength. LUE 1/5 strength. No facial droop. Sensation intact. Alert, normal mood/affect, oriented x 3 Skin: Normal color, warm/dry, no rash (Zaina Durán ., PA-C) Laboratory Results Last 24 Hours Test 02/07/17 15:53 02/07/17 19:57 02/07/17 20:45 02/08/17 05:55 Urine Color YELLOW Urine Appearance TURBID Urine pH 5.5 Urine Specific [place] 1.012 Urine Protein 1+ Urine Glucose (UA) NEG Urine Ketones NEG Urine Occult Blood 3+ Urine Nitrite NEG Urine Bilirubin NEG Urine Urobilinogen POS Urine Leukocyte Esterase LARGE Urine WBC (Auto) >30 /hpf Urine RBC (Auto) 10-30 /hpf Urine Hyaline Casts (Auto) 5-10 /lpf Urine Epithelial Cells (Auto) >30 /lpf Urine Bacteria (Auto) 4+ Urine Pathogenic Casts /lpf Urine Yeast (Auto) Hemoglobin 12.2 g/dL 11.3 g/dL Hematocrit 36.0 % 36.1 % Bedside Glucose 111 mg/dl White Blood Count 7.35 K/uL Red Blood Count 3.71 M/uL Mean Corpuscular Volume 97.3 fL Mean Corpuscular Hemoglobin 30.5 pg Mean Corpuscular Hemoglobin Concent 31.3 g/dl Platelet Count 165 K/uL Mean Platelet Volume 8.1 fL Neutrophils (%) (Auto) 58.4 % Lymphocytes (%) (Auto) 30.6 % Monocytes (%) (Auto) 6.4 % Eosinophils (%) (Auto) 4.1 % Basophils (%) (Auto) 0.4 % Neutrophils # (Auto) 4.29 K/uL Lymphocytes # (Auto) 2.25 K/uL Monocytes # (Auto) 0.47 K/uL Eosinophils # (Auto) 0.30 K/uL Basophils # (Auto) 0.03 K/uL RDW Standard Deviation 52.3 fL RDW Coefficient of Variation 14.7 % Immature Granulocyte % (Auto) 0.1 % Immature Granulocyte # (Auto) 0.01 K/uL Sodium Level 143 mmol/L Potassium Level 4.0 mmol/L Chloride Level 108 mmol/L Carbon Dioxide Level 27 mmol/L Anion Gap 8.0 mmol/L Blood Urea Nitrogen 24 mg/dl Creatinine 0.71 mg/dl Est Creatinine Clear Calc Drug Dose 73.6 ml/min Estimated GFR () 102.0 Estimated GFR (Non- 88.0 BUN/Creatinine Ratio 33.2 Random Glucose 95 mg/dl Calcium Level 8.3 mg/dl Triglycerides Level 122 mg/dl Cholesterol Level 86 mg/dl HDL Cholesterol 29 mg/dl LDL Cholesterol, Calculated 33 mg/dl VLDL Cholesterol, Calculated 24 mg/dl Cholesterol/HDL Ratio 3.0 Test 02/08/17 06:46 02/08/17 12:03 Bedside Glucose 100 mg/dl 136 mg/dl (Zaina Durán, LYDIA) Diagnostic Results Patient Name: MIGUEL WILKINS Unit Number: [id number] Dictated: 02/08/171050 Transcribed: 02/08/171050 PAJ Printed Date/Time: [~ rep prt dt]/[~ rep prt tm] [~ rep ct labl] - [~ rep ct ivnm] [facility] [place] [address] Dictated: 02/08/171050 Transcribed: 02/08/171050 PAJ Printed Date/Time: [~ rep prt dt]/[~ rep prt tm] [~ rep ct labl] - [~ rep ct ivnm] Patient: MIGUEL WILKINS Address1: [address] [facility] Rec: [id number] Address2: Acct ID: [id number] [facility] Zip: [place] [address] Date: 1935 Sex: M Room/Bed: [facility] Ref Phy: Juventino Spencer M.D. SC: C.2T Att Phy: Joseph Keene D.O. Report #: [id number] Hailey Phy: Juventino Spencer M.D. Test: HWO Admit Phy: Julián Treadwell MD Cupola Hoist Operator: MARINE Interpreting Phy: Markie Birmingham MD Diagnosis: HEMORRHAGIC STROKE Ordering Phy: Joseph Keene D.O. Service Date: 02/08/17 Admit Date: 02/07/1706/12/17 MNE: PWRSCRIBE CONF: DICTATED BY: Markie Birmingham M.D.]] CC: Joseph Keene D.O. Woolley, Paul O., M.D. Endcc: [~ rep ct add3]] HEAD CT NONCONTRAST CT DOSE: 614.27 mGy.cm HISTORY: hemorrhagic stroke TECHNIQUE: Multiaxial CT images of the head were performed without the use of intravenous contrast. Automated exposure control was utilized for this study. Comparison: Head CT 02/07/2017. Findings: The paranasal sinuses and mastoid air cells are clear. The calvarium and skull base are intact. Multiple old infarcts are again noted. No acute infarct, mass, or midline shift. No change in the serpiginous areas of increased density within the old right parietal infarct. Impression: No change in the serpiginous areas of increased density within the old right parietal infarct. This favors cortical laminar necrosis/petechial hemorrhage. An additional [address] follow-up is recommended. Electronically signed by: Mrakie Birmingham M.D. 02/08/2017 10:55 AM Dictated Date/Time: 02/08/2017 10:51 AM The status of this report is Signed. Draft = Not yet reviewed or approved by Radiologist. Signed = Reviewed and approved by Radiologist. <AttendingPhy>Joseph Keene D.O.</AttendingPhy> <FamilyPhy>Juventino Spencer M.D.</FamilyPhy> <PrimaryPhy>Juventino Spencer M.D.</PrimaryPhy> <UnitNumber> [id number]</UnitNumber> <VisitNumber>[id number]</VisitNumber> <PatientName> MIGUEL WILKINS</PatientName> <DateOfBirth>1935</DateOfBirth> <Location>C.2T< /Location> <ServiceDate>02/07/17</ServiceDate> <MNE>ESINDI</MNE> <OrderingPhy> Joseph Keene D.O.</OrderingPhy> <OrderingPhyMNE>f rep ord dr manuel</ OrderingPhyMNE> <DictatingPhyMNE>f rep dict dr manuel</DictatingPhyMNE> <CCListMNE> f rep ct mne</CCListMNE> <AdmittingPhyMNE>f pt admit dr manuel</AdmittingPhyMNE> < AttendingPhyMNE>f pt attend dr manuel</AttendingPhyMNE> <ConsultingPhyMNE>f pt consult dr manuel</ConsultingPhyMNE> <FamilyPhyMNE>f pt fam dr manuel</FamilyPhyMNE> <OtherPhyMNE>f pt other dr manuel</OtherPhyMNE> < PrimaryPhyMNE>f pt prim care dr manuel</PrimaryPhyMNE> <ReferringPhyMNE>f pt referring dr manuel</ReferringPhyMNE> Patient Name: MIGUEL WILKINS Unit Number: [id number] Dictated: 02/08/171129 Transcribed: 02/08/171129 JA Printed Date/Time: [~ rep prt dt]/[~ rep prt tm] [~ rep ct labl] - [~ rep ct ivnm] [facility] [place] [address] Dictated: 02/08/17 1130 Transcribed: 02/08/17 1130 JA Printed Date/Time: [~ rep prt dt]/[~ rep prt tm] [~ rep ct labl] - [~ rep ct ivnm] Patient: MIGUEL WILKINS Address1: [address] [place] [address] Rec: [id number] Address2: Acct ID: [id number] [facility] Zip: [place] [address] Date: 1935 Sex: M Room/Bed: [facility] Ref Phy: Juventino Spencer M.D. SC: C.2T Att Phy: Joseph Keene D.O. Report #: [id number] Hailey Phy: Juventino Spencer M.D. Test: HCAW Admit Phy: Julián Treadwell MD Cupola Hoist Operator: MARINE Interpreting Phy: Will Montoya MD Diagnosis: HEMORRHAGIC STROKE Ordering Phy: Minesh Gresham MD Service Date: 02/08/17 Admit Date: 02/07/1706/12/17 MNE: PWRSCRIBE CONF: DICTATED BY: Will Montoya MD]] CC: Joseph Keene D.O. Hyman, Brian A., M.D. Woolley, Paul O., M.D. Endcc: [~ rep ct add3]] CTA ANGIOGRAPHY OF THE HEAD CLINICAL HISTORY: Stroke. COMPARISON STUDY: MRA of the head March 17, 2015. TECHNIQUE: Helical axial images of the head were obtained following uneventful intravenous administration of 119 cc of Optiray 320. FINDINGS: Multiple areas of encephalomalacia consistent with infarcts are again noted. Suspected laminar necrosis within the right parietal infarct is noted. Ventricular dilatation is due to atrophy. The basilar cisterns are patent. There are no extra-axial collections. There is extensive intracranial atherosclerosis with numerous moderate to severe multifocal stenoses. There is no abrupt vessel cut off. There is no intracranial aneurysm. There is severe stenosis of the right A1 segment as well as severe stenosis of the distal left middle cerebral artery. There is severe stenosis of the right P1 segment and moderate stenosis of the left P1 segment. IMPRESSION: 1. No abrupt vessel cut off or intracranial aneurysm. 2. Extensive intracranial atherosclerosis with multifocal severe stenoses within the intracranial circulation, as detailed above. 3. Redemonstration of multifocal infarcts, as shown on head CT. Electronically signed by: Will Montoya M.D. 02/08/2017 11:43 AM Dictated Date/Time: 02/08/2017 11:30 AM The status of this report is Signed. Draft = Not yet reviewed or approved by Radiologist. Signed = Reviewed and approved by Radiologist. <AttendingPhy>Joseph Keene D.O.</AttendingPhy> <FamilyPhy>Juventino Spencer M.D.</FamilyPhy> <PrimaryPhy>Juventino Spencer M.D.</PrimaryPhy> <UnitNumber> [id number]</UnitNumber> <VisitNumber>[id number]</VisitNumber> <PatientName> MIGUEL WILKINS</PatientName> <DateOfBirth>1935</DateOfBirth> <Location>C.2T< /Location> <ServiceDate>02/07/17</ServiceDate> <MNE>ESINDI</MNE> <OrderingPhy> Minesh Gresham MD</OrderingPhy> <OrderingPhyMNE>f rep ord dr manuel</OrderingPhyMNE > <DictatingPhyMNE>f rep dict dr manuel</DictatingPhyMNE> <CCListMNE>f rep ct mne</ CCListMNE> <AdmittingPhyMNE>f pt admit dr manuel</AdmittingPhyMNE> <AttendingPhyMNE >f pt attend dr manuel</AttendingPhyMNE> <ConsultingPhyMNE>f pt consult dr manuel</ConsultingPhyMNE> <FamilyPhyMNE>f pt fam dr manuel</FamilyPhyMNE> <OtherPhyMNE>f pt other dr manuel</OtherPhyMNE> < PrimaryPhyMNE>f pt prim care dr manuel</PrimaryPhyMNE> <ReferringPhyMNE>f pt referring dr manuel</ReferringPhyMNE> Patient Name: MIGUEL WILKINS Unit Number: [id number] Dictated: 06/13/17 1127 Transcribed: 02/08/171126 PA Printed Date/Time: [~ rep prt dt]/[~ rep prt tm] [~ rep ct labl] - [~ rep ct ivnm] [facility] [place] [address] Dictated: 02/08/171126 Transcribed: 02/08/171126 PA Printed Date/Time: [~ rep prt dt]/[~ rep prt tm] [~ rep ct labl] - [~ rep ct ivnm] Patient: MIGUEL WILKINS Address1: [address] [facility] Rec: [id number] Address2: Acct ID: [id number] [facility] Zip: [place] [address] Date: 1935 Sex: M Room[facility]Bed: [facility] Ref Phy: Juventino Spencer M.D. SC: C.2T Att Phy: Joseph Keene D.O. Report #: [id number] Hailey Phy: Juventino Spencer M.D. Test: NCKAW Admit Phy: Julián Treadwell MD Cupola Hoist Operator: MARINE Interpreting Phy: Markie Birmingham MD Diagnosis: HEMORRHAGIC STROKE Ordering Phy: Minesh Gresham MD Service Date: 02/08/17 Admit Date: 02/07/1706/12/17 MNE: PWRSCRIBE CONF: DICTATED BY: Markie Birmingham M.D.]] CC: Joseph Keene D.O. Hyman, Brian A., M.D. Woolley, Paul O., M.D. Endcc: [~ rep ct add3]] NECK CTA HISTORY: Hemorrhagic stroke. TECHNIQUE: Multiaxial CT images of the neck were performed following the intravenous administration of contrast to evaluate the major cervical vessels. Maximum intensity projection images were also obtained. All measurements were calculated based on NASCET criteria. COMPARISON STUDY: None. FINDINGS: The aortic arch and proximal great vessels are widely patent. Mild to moderate calcified plaque within the left carotid bifurcation. However, no significant stenosis within the left common or internal carotid arteries. No significant stenosis or occlusion identified within the right common or internal carotid arteries. The vertebral arteries are patent. The right vertebral artery is slightly hypoplastic in comparison to the left. There is a 3.3 cm heterogeneous right thyroid nodule. The central pulmonary arteries are patent. Degenerative changes within the cervical spine. IMPRESSION: No significant stenosis, occlusion, or dissection identified within the carotid or vertebral arteries. A 3.3 cm right thyroid nodule. Electronically signed by: Markie Birmingham M.D. 02/08/2017 11:32 AM Dictated Date/Time: 02/08/2017 11:27 AM The status of this report is Signed. Draft = Not yet reviewed or approved by Radiologist. Signed = Reviewed and approved by Radiologist. <AttendingPhy>Joseph Keene D.O.</AttendingPhy> <FamilyPhy>Juventino Spencer M.D.</FamilyPhy> <PrimaryPhy>Juventino Spencer M.D.</PrimaryPhy> <UnitNumber> [id number]</UnitNumber> <VisitNumber>[id number]</VisitNumber> <PatientName> MIGUEL WILKINS M</PatientName> <DateOfBirth>1935</DateOfBirth> <Location>C.2T< /Location> <ServiceDate>02/07/17</ServiceDate> <MNE>ESINDI</MNE> <OrderingPhy> Minesh Gresham MD</OrderingPhy> <OrderingPhyMNE>f rep ord dr manuel</OrderingPhyMNE > <DictatingPhyMNE>f rep dict dr maneul</DictatingPhyMNE> <CCListMNE>f rep ct mar</ CCListMNE> <AdmittingPhyMNE>f pt admit dr manuel</AdmittingPhyMNE> <AttendingPhyMNE >f pt attend dr manuel</AttendingPhyMNE> <ConsultingPhyMNE>f pt consult dr manuel</ConsultingPhyMNE> <FamilyPhyMNE>f pt fam dr manuel</FamilyPhyMNE> <OtherPhyMNE>f pt other dr manuel</OtherPhyMNE> < PrimaryPhyMNE>f pt prim care dr manuel</PrimaryPhyMNE> <ReferringPhyMNE>f pt referring dr manuel</ReferringPhyMNE> (Zaina Durán ., PA-C) Assessment and Plan 81 y/o male with a history of 2 recent strokes, coronary artery disease, DM II, HTN, and HLD who presents with hemorrhagic stroke. Hemorrhagic Stroke--stable - Reviewed Head CT - Area of increased density within the old right parietal infarct - Favoring cortical laminar necrosis/petechial hemorrhage - Repeat head CT 02/08 shows hemorrhage is stable. Consider another repeat head CT in 24 hours - Neurology Consult: Obtain MRI brain, CTA of head and neck. Assuming hemorrhage is stable and no evidence of cardioembolic source is found, pt will eventually need to continue antiplatelet therapy. Would continue Plavix alone. - CTA head: Extensive intracranial atherosclerosis with multifocal severe stenoses within the intracranial circulation -CTA neck: No significant stenosis, occlusion, or dissection identified within the carotid or vertebral arteries -MRI brain ordered - Stroke Protocol - Discontinued Aspirin and Plavix - Failed dysphagia screen - Speech therapy evaluated: mechanical soft diet with thin liquids, aspiration precautions - PT/OT evaluate and treat: can return home with strong family support, home health PT. Non-ambulatory at baseline. UTI POA - UA shows blood and leuk esterase, 4+ bacteria along with previous history of UTI along with indwelling ferguson - Previous UTI was pierce sensitive - 1 dose of Levaquin in ED - Urine culture >3 types organisms, all high counts. Recommend repeat collection - Repeat urine culture - Rocephin 1 gm IV qd - Changed urinary catheter in ED Type 2 Diabetes--stable -HgbA1c on 02/07 was 7.1 - Hold Metformin -Insulin sliding scale -Check BSGs q ac and qhs Hypertension--stable - Continue lisinopril 5 mg PO qd HLD -Continue atorvastatin 80 mg PO qd History of CAD - Holding Aspirin 2/2 stroke - Continue carvedilol 3.125 mg PO BID BPH - Continue finasteride 5 mg PO qd DVT prophylaxis -SCDs Code Status -Level V, DO NOT RESUSCITATE (aZina Durán ., PA-C) I agree with PA assessment and plan and have seen and examined pt myself Pt resting comfortably in bed More alert but does not follow commands well Residual left sided weakness noted Neurology consulted Unsure whether AMS from hemmorrhage Will get MRI brain to r/o new infarct hydralazine PRN accelerated HTN (Joseph Keene D.O.)
[2017-02-08] MEDS: CEFTRIAXONE SOD INJ 1 GM in DEXTROSE 5% ADD-VANTAGE 50ML 50 ML IV SCH (15:07)
--- NOTE | 2017-02-08 21:04 | DIAGNOSTIC IMAGING REPORT ---
ORBIT RADIOGRAPHS 3 VIEWS HISTORY: pre-MRI screening. COMPARISON: None. FINDINGS: There are no radiopaque foreign bodies identified within the orbits. IMPRESSION: No radiopaque foreign bodies identified within the orbits. Electronically signed by: Jeb Joshua M.D. 02/08/2017 9:03 PM Dictated Date/Time: 02/08/2017 9:02 PM
[2017-02-08] MEDS: ATORVASTATIN 40 MG TAB PO SCH (23:35)
[2017-02-09] VITALS (7 sets, daily range): BP systolic 108–162; BP diastolic 64–81; PULSE 52–71; TEMP 36.6–37.3; O2SAT 96–99
[2017-02-09 06:16] LABS: BASO % 0.3 %; BASO ABS # 0.02 K/uL (0-0.2); COMPLETE YES; EOS % 3.1 %; HEMATOCRIT 35.2 % (42-52); IG% 0.2 %; LYMPH % 33.3 %; LYMPH ABS # 2.06 K/uL (1.2-3.4); MEAN CELL VOLUME 96.4 fL (80-100); MEAN CORPUSCULAR HGB CONC 32.1 g/dl (32-36); MEAN PLATELET VOLUME 8.3 fL (7.4-10.4); MONO % 7.8 %; NEUT % 55.3 %; PLATELET COUNT 152 K/uL (130-400); RED BLOOD COUNT 3.65 M/uL (4.7-6.1); WHITE BLOOD COUNT 6.19 K/uL (4.8-10.8)
--- NOTE | 2017-02-09 06:41 | DIAGNOSTIC IMAGING REPORT ---
MRI OF THE BRAIN WITHOUT CONTRAST CLINICAL HISTORY: Hemorrhagic stroke. COMPARISON STUDY: MRI of the brain March 17, [address] and CTA of the head February 08, 2017. TECHNIQUE: Utilizing a 1.5 [place] magnet and dedicated coil, multiplanar, multiecho imaging of the brain was performed without IV contrast. FINDINGS: There is restricted diffusion within the right parietooccipital region as well as the anterior medial right frontal lobe. This suggests acute to subacute infarcts superimposed upon chronic infarcts. Increased cortical T1 signal suggests laminar necrosis most evident within the right parietooccipital infarct. There is no evidence for acute hemorrhage by MRI. Ventricular dilatation is stable. Basilar cisterns are patent. There are no extra-axial collections. Old left occipital lobe infarct is noted. Calvarial signal is maintained. Orbits are unremarkable. No intracranial masses identified on this unenhanced study. IMPRESSION: 1. Restricted diffusion within the right parietooccipital and right frontal infarcts which suggests subacute to acute infarcts superimposed upon chronic infarcts. Increased cortical T1 signal within the right parieto-occipital infarct suggests laminar necrosis. Minimal acute hemorrhage is considered less likely although could be assessed on follow-up CT. 2. Scattered old infarcts and moderate atrophy. Electronically signed by: Will Montoya M.D. 02/09/2017 6:39 AM Dictated Date/Time: 02/09/2017 6:31 AM
[2017-02-09 06:56] LABS: BUN/CREATININE RATIO 33.9 (10-20); CALCIUM 8.2 mg/dl (8.5-10.1); CREATININE 0.65 mg/dl (0.60-1.40); POTASSIUM 3.4 mmol/L (3.5-5.1)
[2017-02-09] MEDS: INSULIN ASPART 100 UNITS/ML 3 ML PEN SC SCH ×4 (07:39→21:06)
[2017-02-09] MEDS ORDERED: POTASSIUM CHLORIDE 20 MEQ TABCR PO ONE (07:45)
[2017-02-09] MEDS: CARVEDILOL 3.125 MG TAB PO SCH ×2 (08:29→19:28)
[2017-02-09] MEDS: FINASTERIDE 5 MG TAB PO SCH (10:22)
--- NOTE | 2017-02-09 11:36 | Neurology Progress Notes ---
Neurology Progress Note Date of Service Feb 09, 2017. Subjective Follow-up for hemorrhagic stroke The patient's clinical status remains largely unchanged compared with yesterday. He is observed lying in bed, awake, but abulic. He continues to lean his head to the left side. The patient denies any new complaints this morning. Follow-up CT angiography of the head and neck of been completed. No evidence of a hemodynamically significant stenosis of the extracranial vessels. 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 This area was also seen on follow-up MRI with the differential diagnosis favoring laminar necrosis over significant hemorrhage. Diffusion-weighted imaging also reveals subacute infarct in this area which is consistent with this patient's history of right parietal stroke occurring in November. Antiplatelet medications have been on hold since the discovery of petechial hemorrhage noted this admission. Objective Date Time Temp Pulse Resp B/P (MAP) Pulse Ox O2 Delivery O2 Flow Rate FiO2 02/09/17 10:32 57 162/81 (108) 02/09/17 08:37 Room Air 02/09/17 08:33 53 115/68 (84) 02/09/17 07:11 36.6 52 17 108/64 (79) 98 Room Air 02/09/17 04:01 36.7 58 19 155/64 (94) 99 Room Air 02/09/17 04:00 Room Air 02/09/17 00:00 Room Air 02/08/17 23:27 36.9 58 17 166/76 (106) 98 Room Air 02/08/17 19:30 Room Air 02/08/17 19:18 36.8 82 20 147/88 (107) 98 Room Air 02/08/17 16:29 Room Air 02/08/17 15:26 37.0 86 18 118/71 (87) 96 Room Air 02/08/17 12:17 99 Room Air 02/08/17 11:37 36.2 82 18 132/77 (95) 96 Last 24 Hours Test 02/08/17 12:03 02/08/17 16:12 02/08/17 20:05 02/09/17 05:45 Bedside Glucose 136 mg/dl 165 mg/dl 225 mg/dl White Blood Count 6.19 K/uL Red Blood Count 3.65 M/uL Hemoglobin 11.3 g/dL Hematocrit 35.2 % Mean Corpuscular Volume 96.4 fL Mean Corpuscular Hemoglobin 31.0 pg Mean Corpuscular Hemoglobin Concent 32.1 g/dl Platelet Count 152 K/uL Mean Platelet Volume 8.3 fL Neutrophils (%) (Auto) 55.3 % Lymphocytes (%) (Auto) 33.3 % Monocytes (%) (Auto) 7.8 % Eosinophils (%) (Auto) 3.1 % Basophils (%) (Auto) 0.3 % Neutrophils # (Auto) 3.43 K/uL Lymphocytes # (Auto) 2.06 K/uL Monocytes # (Auto) 0.48 K/uL Eosinophils # (Auto) 0.19 K/uL Basophils # (Auto) 0.02 K/uL RDW Standard Deviation 52.0 fL RDW Coefficient of Variation 14.5 % Immature Granulocyte % (Auto) 0.2 % Immature Granulocyte # (Auto) 0.01 K/uL Sodium Level 143 mmol/L Potassium Level 3.4 mmol/L Chloride Level 109 mmol/L Carbon Dioxide Level 26 mmol/L Anion Gap 8.0 mmol/L Blood Urea Nitrogen 22 mg/dl Creatinine 0.65 mg/dl Est Creatinine Clear Calc Drug Dose 80.4 ml/min Estimated GFR () 105.7 Estimated GFR (Non- 91.2 BUN/Creatinine Ratio 33.9 Random Glucose 125 mg/dl Calcium Level 8.2 mg/dl Test 02/09/17 06:02 Bedside Glucose 130 mg/dl Exam: As above, the patient is lying rather still in bed. He tends to keep his head turned and tilted to the left. He does not move or speak spontaneously. He does answer questions slowly but does not follow commands very well. He continues to have signs of left tyler-neglect as well as his chronic right hemiparesis affecting the leg to a large degree. Occasional muscular twitches of the right leg are observed but nothing suggestive of tonic or tonic-clonic seizures. The movements seem to resemble brief myoclonic jerking. Current Inpatient Medications Medications (Trade) Dose Ordered Sig/Hiram Route Start Time Stop Time Status Last Admin Dose Admin Miscellaneous Information (Pharmacist Discharge Med Rec Consult) 1 ea UD PRN N/A 02/07/17 16:30 03/09/17 16:29 Al Hydrox/Mg Hydrox/Simethicone (Maalox Max Susp) 15 ml Q4H PRN PO 02/07/17 16:30 03/09/17 16:29 Magnesium Hydroxide (Milk Of Magnesia Susp) 30 ml Q12H PRN PO 02/07/17 16:30 03/09/17 16:29 Ondansetron HCl (Zofran Inj) 4 mg Q6H PRN IV 02/07/17 16:30 03/09/17 16:29 Polyethylene (Miralax Powder Packet) 17 gm DAILY PRN PO 02/07/17 16:30 03/09/17 16:29 Acetaminophen (Tylenol Tab) 500 mg Q4 PRN PO 02/07/17 17:30 03/09/17 17:29 02/08/17 17:37 500 MG Atorvastatin Calcium (Lipitor Tab) 80 mg HS PO 02/07/17 21:00 03/09/17 20:59 02/08/17 23:35 80 MG Carvedilol (Coreg Tab) 3.125 mg BID PO 02/07/17 21:00 03/09/17 20:59 02/08/17 23:35 3.125 MG Finasteride (Proscar Tab) 5 mg DAILY PO 02/08/17 09:00 03/10/17 08:59 02/09/17 10:22 5 MG Lisinopril (Zestril Tab) 5 mg DAILY PO 02/08/17 09:00 03/10/17 08:59 Future Hold Insulin Aspart (novoLOG ASPART) SLIDING SCALE ACHS SC 02/07/17 21:00 03/09/17 20:59 02/08/17 16:56 1 UNITS Glucose (Glucose 40% Gel) 15-30 GRAMS 15 GRAMS... UD PRN PO 02/07/17 17:30 03/09/17 17:29 Glucose (Glucose Chew Tab) 4-8 Tablets 4 Tabl... UD PRN PO 02/07/17 17:30 03/09/17 17:29 Dextrose (Dextrose 50% 50ML Syringe) 25-50ML OF 50% DW IV FOR... UD PRN IV 02/07/17 17:30 03/09/17 17:29 Glucagon (Glucagon Inj) 1 mg UD PRN SQ 02/07/17 17:30 03/09/17 17:29 Hydralazine HCl (HydrALAZINE INJ) 10 mg Q4 PRN IV. 02/08/17 08:45 03/10/17 08:44 Ioversol (Optiray 320) 125 ml UD PRN IV 02/08/17 11:30 02/12/17 11:29 Ceftriaxone Sodium 1 gm/ Dextrose 50 ml @ 100 mls/hr Q24H IV 02/08/17 14:30 02/18/17 14:29 02/08/17 15:07 100 MLS/HR Impression This patient has multiple neurological deficits related to his chronic strokes in several different vascular territories. 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 Follow-up MRI suggests subacute to acute stroke within this area. However, I tend to favor a subacute infarct given his history of stroke in this area occurring in November. The imaging characteristics are not able to provide a more specific timeline. I did observe a few brief myoclonic jerking movements of the right leg this morning. The movements were not highly suggestive of seizure activity although subclinical seizures are certainly not excluded in this individual. Plan Continue to hold antiplatelet therapy. Would obtain a bedside EEG. Would obtain a repeat CT of the head tomorrow. Assuming stability of the recently identified small area of laminar necrosis/ petechial hemorrhage, then I would recommend restarting a single antiplatelet agent. Plavix 75 mg per day would be reasonable. Consideration of starting an anticonvulsant will be made depending on results of the EEG.
--- NOTE | 2017-02-09 13:03 | EEG Procedure Note ---
EEG Procedure Note Date of Service Feb 09, 2017. Start / End Times Start Time: 11:54 AM End Time: 12:14 PM Referring Physician Minesh Gresham History This is a 81-year-old male with jerking of the right lower extremity concerning for seizure activity. EEG for further evaluation of possible seizure etiology. Home Medication List Scheduled Aspirin (Aspirin Ec), 81 MG PO DAILY Atorvastatin (Lipitor), 80 MG PO HS Carvedilol (Carvedilol), 3.125 MG PO BID Clopidogrel (Plavix), 75 MG PO DAILY Finasteride (Finasteride), 5 MG PO DAILY Lisinopril (Zestril), 5 MG PO DAILY Metformin Hcl (Glucophage), 500 MG PO DAILY Senna (Senokot), 17.2 MG PO BID Scheduled PRN Acetaminophen (Tylenol), 500 MG PO Q4 PRN for Pain Nitroglycerin (Nitrostat), 0.4 MG PO UD PRN for Chest Pain Inpatient Medication List Current Inpatient Medications Medications (Trade) Dose Ordered Sig/Hiram Route Start Time Stop Time Status Last Admin Dose Admin Miscellaneous Information (Pharmacist Discharge Med Rec Consult) 1 ea UD PRN N/A 02/07/17 16:30 03/09/17 16:29 Al Hydrox/Mg Hydrox/Simethicone (Maalox Max Susp) 15 ml Q4H PRN PO 02/07/17 16:30 03/09/17 16:29 Magnesium Hydroxide (Milk Of Magnesia Susp) 30 ml Q12H PRN PO 02/07/17 16:30 03/09/17 16:29 Ondansetron HCl (Zofran Inj) 4 mg Q6H PRN IV 02/07/17 16:30 03/09/17 16:29 Polyethylene (Miralax Powder Packet) 17 gm DAILY PRN PO 02/07/17 16:30 03/09/17 16:29 Acetaminophen (Tylenol Tab) 500 mg Q4 PRN PO 02/07/17 17:30 03/09/17 17:29 02/08/17 17:37 500 MG Atorvastatin Calcium (Lipitor Tab) 80 mg HS PO 02/07/17 21:00 03/09/17 20:59 02/08/17 23:35 80 MG Carvedilol (Coreg Tab) 3.125 mg BID PO 02/07/17 21:00 03/09/17 20:59 02/08/17 23:35 3.125 MG Finasteride (Proscar Tab) 5 mg DAILY PO 02/08/17 09:00 03/10/17 08:59 02/09/17 10:22 5 MG Lisinopril (Zestril Tab) 5 mg DAILY PO 02/08/17 09:00 03/10/17 08:59 Future Hold Insulin Aspart (novoLOG ASPART) SLIDING SCALE ACHS SC 02/07/17 21:00 03/09/17 20:59 02/09/17 11:44 2 UNITS Glucose (Glucose 40% Gel) 15-30 GRAMS 15 GRAMS... UD PRN PO 02/07/17 17:30 03/09/17 17:29 Glucose (Glucose Chew Tab) 4-8 Tablets 4 Tabl... UD PRN PO 02/07/17 17:30 03/09/17 17:29 Dextrose (Dextrose 50% 50ML Syringe) 25-50ML OF 50% DW IV FOR... UD PRN IV 02/07/17 17:30 03/09/17 17:29 Glucagon (Glucagon Inj) 1 mg UD PRN SQ 02/07/17 17:30 03/09/17 17:29 Hydralazine HCl (HydrALAZINE INJ) 10 mg Q4 PRN IV. 02/08/17 08:45 03/10/17 08:44 Ioversol (Optiray 320) 125 ml UD PRN IV 02/08/17 11:30 02/12/17 11:29 Ceftriaxone Sodium 1 gm/ Dextrose 50 ml @ 100 mls/hr Q24H IV 02/08/17 14:30 02/18/17 14:29 02/08/17 15:07 100 MLS/HR Description This is a 21 electrode EEG with a single channel dedicated to limited EKG. The electrodes were placed in accordance with the International 10-20 system. There was frequent electrical electrode artifact. Quality of recording was fair. Hyperventilation and photic stimulus were not done. At the start of this recording the patient was in an awake state. Background was poorly organized with poorly formed anterior to posterior gradient. Background was composed of symmetric low to moderate amplitude predominantly 6 Hz theta frequencies with intermixed delta and alpha frequencies. There was no stage changes or sleep transients. Interpretation This is an abnormal routine EEG secondary to moderate background disorganization and slowing There was no electronic seizures or epileptiform discharges. Clinical Correlation This EEG indicates a moderate encephalopathy of nonspecific etiology. An EEG does not rule out epilepsy if there is strong clinical suspicion.
--- NOTE | 2017-02-09 13:48 | Clinical Documentation Query ---
CLINICAL DOCUMENTATION QUERY Dr. NOONAN, In your clinical opinion is this patient being managed for: ( ) Encephalopathy of unknown etiology (X ) Other explanation of clinical findings related to ischemic stroke ( ) Unable to determine (Please Define) ( ) Need to Discuss ( ) Not Agree The medical record reflects the following clinical findings, treatment, and risk factors. Clinical Indicators: 81 yo male presenting with altered mental status. reported pt in and out of consciousness all night. Also reportedly with O2 sat of 80% upon EMS arrival. CT head with development of serpiginous areas of increased density within the old right parietal infarct. This favors cortical laminar necrosis/petechial hemorrhage. Also diagnosed with UTI. EEG performed 02/09 showed moderate encephalopathy of nonspecific etiology. Treatment:IV fluids, IV levaquin, neurology consult, ferguson catheter changed, UA cx results pending, EEG Risk Factors: age, UTI, hypoxia, hemorrhagic CVA Please clarify and document your clinical opinion in the progress notes and discharge summary. Terms such as "probable", "suspected", "likely", "questionable", "possible", or "still to be ruled out" are acceptable. IF IN AGREEMENT, YOU MUST DOCUMENT ABOVE DIAGNOSTIC STATEMENT IN DAILY PROGRESS NOTES AND DISCHARGE SUMMARY. This document is not part of the patient's record. Thank You, Anita Phelps RN [phone]
--- NOTE | 2017-02-09 13:50 | Clinical Documentation Query ---
CLINICAL DOCUMENTATION QUERY Ms. LUEVANO, In your clinical opinion is this patient being managed for: ( ) Encephalopathy of unknown etiology ( ) Other explanation of clinical findings (Please Explain ( ) Unable to determine (Please Define) ( ) Need to Discuss ( x ) Not Agree The medical record reflects the following clinical findings, treatment, and risk factors. Clinical Indicators: 81 yo male presenting with altered mental status. reported pt in and out of consciousness all night. Also reportedly with O2 sat of 80% upon EMS arrival. CT head with development of serpiginous areas of increased density within the old right parietal infarct. This favors cortical laminar necrosis/petechial hemorrhage. Also diagnosed with UTI. EEG performed 02/09 showed moderate encephalopathy of nonspecific etiology. Treatment:IV fluids, IV levaquin, neurology consult, ferguson catheter changed, UA cx results pending, EEG Risk Factors: age, UTI, hypoxia, hemorrhagic CVA Please clarify and document your clinical opinion in the progress notes and discharge summary. Terms such as "probable", "suspected", "likely", "questionable", "possible", or "still to be ruled out" are acceptable. IF IN AGREEMENT, YOU MUST DOCUMENT ABOVE DIAGNOSTIC STATEMENT IN DAILY PROGRESS NOTES AND DISCHARGE SUMMARY. This document is not part of the patient's record. Thank You, Anita Phelps RN [phone]
--- NOTE | 2017-02-09 14:03 | Hospitalist Progress Note ---
Hospitalist Progress Note Date of Service Feb 09, 2017. (Zaina Durán ., BETTE-C) Subjective Pt evaluation today including: conversation w/ patient, conversation w/ family (), physical exam, chart review, lab review, review of studies, review of inpatient medication list Pain: None PO Intake: Tolerating PO diet Voiding: ferguson catheter in place Patient more alert today, answering questions appropriately and responding quicker than yesterday. Denies any complaints. Residual weakness remains. Ferguson catheter in place. The patient denies fevers, chills, sweats, chest pain , palpitations, claudication, cough, wheezing, shortness of breath, nausea, vomiting, abdominal pain, dysuria, hematuria, urinary retention, paralysis, numbness and tingling. Additional Comments: See HPI for pertinent positives and negatives. All other systems reviewed and negative. (Zaina Durán ., BETTE-C) Objective Vital Signs Date Time Temp Pulse Resp B/P (MAP) Pulse Ox O2 Delivery O2 Flow Rate FiO2 02/09/17 11:37 Room Air 02/09/17 11:29 36.8 57 19 149/66 (93) 97 Room Air 02/09/17 10:32 57 162/81 (108) 02/09/17 08:37 Room Air 02/09/17 08:33 53 115/68 (84) 02/09/17 07:11 36.6 52 17 108/64 (79) 98 Room Air 02/09/17 04:01 36.7 58 19 155/64 (94) 99 Room Air 02/09/17 04:00 Room Air 02/09/17 00:00 Room Air 02/08/17 23:27 36.9 58 17 166/76 (106) 98 Room Air 02/08/17 19:30 Room Air 02/08/17 19:18 36.8 82 20 147/88 (107) 98 Room Air 02/08/17 16:29 Room Air 02/08/17 15:26 37.0 86 18 118/71 (87) 96 Room Air (Zaina Durán ., BETTE-C) Physical Exam Notes: General appearance: Well-developed, well-nourished, no apparent distress Head: Normocephalic, atraumatic Eyes: +EOM exam limited as pt still has some difficulty following commands. Normal inspection, PERRL ENT: Normal ENT inspection, hearing grossly normal, pharynx normal Neck: Supple, no JVD, trachea midline Respiratory/Chest: Lungs clear to auscultation, normal breath sounds, no respiratory distress Cardiovascular: +Bradycardia. Regular rhythm, no gallop, no murmur Abdomen/GI: Normal bowel sounds, non-tender, soft Extremities/Musculoskeletal: Normal inspection, no calf tenderness, no pedal edema Neurological/Psych: +Left sided weakness. LLE 1/5 strength. LUE 2/5 strength. RLE 2/5 (residual from prior CVA). RUE 4/5. No facial droop. Sensation intact. Disoriented to place and time. Alert, normal mood/affect Skin: Normal color, warm/dry, no rash (Zaina Durán ., LYDIA) Laboratory Results Last 24 Hours Test 02/08/17 16:12 02/08/17 20:05 02/09/17 05:45 02/09/17 06:02 Bedside Glucose 165 mg/dl 225 mg/dl 130 mg/dl White Blood Count 6.19 K/uL Red Blood Count 3.65 M/uL Hemoglobin 11.3 g/dL Hematocrit 35.2 % Mean Corpuscular Volume 96.4 fL Mean Corpuscular Hemoglobin 31.0 pg Mean Corpuscular Hemoglobin Concent 32.1 g/dl Platelet Count 152 K/uL Mean Platelet Volume 8.3 fL Neutrophils (%) (Auto) 55.3 % Lymphocytes (%) (Auto) 33.3 % Monocytes (%) (Auto) 7.8 % Eosinophils (%) (Auto) 3.1 % Basophils (%) (Auto) 0.3 % Neutrophils # (Auto) 3.43 K/uL Lymphocytes # (Auto) 2.06 K/uL Monocytes # (Auto) 0.48 K/uL Eosinophils # (Auto) 0.19 K/uL Basophils # (Auto) 0.02 K/uL RDW Standard Deviation 52.0 fL RDW Coefficient of Variation 14.5 % Immature Granulocyte % (Auto) 0.2 % Immature Granulocyte # (Auto) 0.01 K/uL Sodium Level 143 mmol/L Potassium Level 3.4 mmol/L Chloride Level 109 mmol/L Carbon Dioxide Level 26 mmol/L Anion Gap 8.0 mmol/L Blood Urea Nitrogen 22 mg/dl Creatinine 0.65 mg/dl Est Creatinine Clear Calc Drug Dose 80.4 ml/min Estimated GFR () 105.7 Estimated GFR (Non- 91.2 BUN/Creatinine Ratio 33.9 Random Glucose 125 mg/dl Calcium Level 8.2 mg/dl (Zaina Durán, LYDIA) Diagnostic Results Reviewed the following studies and agree with interpretation as follows: Patient Name: MIGUEL WILKINS Unit Number: [id number] Dictated: 02/09/17630 Transcribed: 02/09/17630 JANETH Printed Date/Time: [~ rep prt dt]/[~ rep prt tm] [~ rep ct labl] - [~ rep ct ivnm] [facility] Radiology Department [place] [id number] Dictated: 02/09/17630 Transcribed: 02/09/17630 JANETH Printed Date/Time: [~ rep prt dt]/[~ rep prt tm] [~ rep ct labl] - [~ rep ct ivnm] Patient: MIGUEL WILKINS Address1: [address] [place] [address] Rec: [id number] Address2: Acct ID: [id number] [facility] Zip: [place] [address] Date: 1935 Sex: M Room/Bed: [facility] Ref Phy: Juventino Spencer M.D. SC: C.2T Att Phy: Joseph Keene D.O. Report #: [id number] Hailey Phy: Juventino Spencer M.D. Test: BRWO Admit Phy: Julián Treadwell MD Rn Social Work: RIAZ Interpreting Phy: Will Montoya MD Diagnosis: HEMORRHAGIC STROKE Ordering Phy: Minesh Gresham MD Service Date: 02/08/17 Admit Date: 02/07/1706/12/17 MNE: [id number] CONF: DICTATED BY: Will Montoya MD]] CC: Joseph Keene D.O. Hyman, Brian A., M.D. Woolley, Paul O., M.D. Endcc: [~ rep ct add3]] MRI OF THE BRAIN WITHOUT CONTRAST CLINICAL HISTORY: Hemorrhagic stroke. COMPARISON STUDY: MRI of the brain March 17, [address] and CTA of the head February 08, 2017. TECHNIQUE: Utilizing a 1.5 [place] magnet and dedicated coil, multiplanar, multiecho imaging of the brain was performed without IV contrast. FINDINGS: There is restricted diffusion within the right parietooccipital region as well as the anterior medial right frontal lobe. This suggests acute to subacute infarcts superimposed upon chronic infarcts. Increased cortical T1 signal suggests laminar necrosis most evident within the right parietooccipital infarct. There is no evidence for acute hemorrhage by MRI. Ventricular dilatation is stable. Basilar cisterns are patent. There are no extra-axial collections. Old left occipital lobe infarct is noted. Calvarial signal is maintained. Orbits are unremarkable. No intracranial masses identified on this unenhanced study. IMPRESSION: 1. Restricted diffusion within the right parietooccipital and right frontal infarcts which suggests subacute to acute infarcts superimposed upon chronic infarcts. Increased cortical T1 signal within the right parieto-occipital infarct suggests laminar necrosis. Minimal acute hemorrhage is considered less likely although could be assessed on follow-up CT. 2. Scattered old infarcts and moderate atrophy. Electronically signed by: Will Montoya M.D. 02/09/2017 6:39 AM Dictated Date/Time: 02/09/2017 6:31 AM The status of this report is Signed. Draft = Not yet reviewed or approved by Radiologist. Signed = Reviewed and approved by Radiologist. <AttendingPhy>Joseph Keene D.O.</AttendingPhy> <FamilyPhy>Juventino Spencer M.D.</FamilyPhy> <PrimaryPhy>Juventino Spencer M.D.</PrimaryPhy> <UnitNumber> [id number]</UnitNumber> <VisitNumber>[id number]</VisitNumber> <PatientName> WILKINSMIGUEL</PatientName> <DateOfBirth>1935</DateOfBirth> <Location>C.2T< /Location> <ServiceDate>02/07/17</ServiceDate> <MNE>ESINDI</MNE> <OrderingPhy> Minesh Gresham MD</OrderingPhy> <OrderingPhyMNE>f rep ord dr mne</OrderingPhyMNE > <DictatingPhyMNE>f rep dict dr manuel</DictatingPhyMNE> <CCListMNE>f rep ct mne</ CCListMNE> <AdmittingPhyMNE>f pt admit dr manuel</AdmittingPhyMNE> <AttendingPhyMNE >f pt attend dr manuel</AttendingPhyMNE> <ConsultingPhyMNE>f pt consult dr manuel</ConsultingPhyMNE> <FamilyPhyMNE>f pt fam dr manuel</FamilyPhyMNE> <OtherPhyMNE>f pt other dr manuel</OtherPhyMNE> < PrimaryPhyMNE>f pt prim care dr manuel</PrimaryPhyMNE> <ReferringPhyMNE>f pt referring dr manuel</ReferringPhyMNE> [place] [address] Procedure Note Patient Name: MIGUEL WILKINS Admit Date: 02/07/1706/12/17 Med Rec: [id number] Att Phy: Joseph Keene D.O. Acct ID: [id number] [facility] Phy: Juventino Spencer M.D. Date: 1935 Fam Phy: Juventino Spencer M.D. Age: 81 Location: [facility] Sex: M Room/Bed: S233-1 CC: Hali Morrison D.O., Paul O., M.D. *NOTICE TO RECEIVING [employer]/AGENCY This information is strictly Confidential and protected under [place] law. [place] law prohibits you from making any further disclosure of this information unless further disclosure is expressly permitted by the written consent of the person to whom it pertains or is authorized by law. A general authorization for the release of medical or other information is not sufficient for this purpose. Hospital accepts no responsibility if the information is made available to any other person, INCLUDING THE PATIENT. EEG Procedure Note Date of Service Feb 09, 2017. Start / End Times Start Time: 11:54 AM End Time: 12:14 PM Referring Physician Minesh Gresham History This is a 81-year-old male with jerking of the right lower extremity concerning for seizure activity. EEG for further evaluation of possible seizure etiology. Home Medication List Scheduled Aspirin (Aspirin Ec), 81 MG PO DAILY Atorvastatin (Lipitor), 80 MG PO HS Carvedilol (Carvedilol), 3.125 MG PO BID Clopidogrel (Plavix), 75 MG PO DAILY Finasteride (Finasteride), 5 MG PO DAILY Lisinopril (Zestril), 5 MG PO DAILY Metformin Hcl (Glucophage), 500 MG PO DAILY Senna (Senokot), 17.2 MG PO BID Scheduled PRN Acetaminophen (Tylenol), 500 MG PO Q4 PRN for Pain Nitroglycerin (Nitrostat), 0.4 MG PO UD PRN for Chest Pain Inpatient Medication List Current Inpatient Medications Medications (Trade) Dose Ordered Sig/Hiram Route Start Time Stop Time Status Last Admin Dose Admin Miscellaneous Information (Pharmacist Discharge Med Rec Consult) 1 ea UD PRN N/A 02/07/17 16:30 03/09/17 16:29 Al Hydrox/Mg Hydrox/Simethicone (Maalox Max Susp) 15 ml Q4H PRN PO 02/07/17 16:30 03/09/17 16:29 Magnesium Hydroxide (Milk Of Magnesia Susp) 30 ml Q12H PRN PO 02/07/17 16:30 03/09/17 16:29 Ondansetron HCl (Zofran Inj) 4 mg Q6H PRN IV 02/07/17 16:30 03/09/17 16:29 Polyethylene (Miralax Powder Packet) 17 gm DAILY PRN PO 02/07/17 16:30 03/09/17 16:29 Acetaminophen (Tylenol Tab) 500 mg Q4 PRN PO 02/07/17 17:30 03/09/17 17:29 02/08/17 17:37 500 MG Atorvastatin Calcium (Lipitor Tab) 80 mg HS PO 02/07/17 21:00 03/09/17 20:59 02/08/17 23:35 80 MG Carvedilol (Coreg Tab) 3.125 mg BID PO 02/07/17 21:00 03/09/17 20:59 02/08/17 23:35 3.125 MG Finasteride (Proscar Tab) 5 mg DAILY PO 02/08/17 09:00 03/10/17 08:59 02/09/17 10:22 5 MG Lisinopril (Zestril Tab) 5 mg DAILY PO 02/08/17 09:00 03/10/17 08:59 Future Hold Insulin Aspart (novoLOG ASPART) SLIDING SCALE ACHS SC 02/07/17 21:00 03/09/17 20:59 02/09/17 11:44 2 UNITS Glucose (Glucose 40% Gel) 15-30 GRAMS 15 GRAMS... UD PRN PO 02/07/17 17:30 03/09/17 17:29 Glucose (Glucose Chew Tab) 4-8 Tablets 4 Tabl... UD PRN PO 02/07/17 17:30 03/09/17 17:29 Dextrose (Dextrose 50% 50ML Syringe) 25-50ML OF 50% DW IV FOR... UD PRN IV 02/07/17 17:30 03/09/17 17:29 Glucagon (Glucagon Inj) 1 mg UD PRN SQ 02/07/17 17:30 03/09/17 17:29 Hydralazine HCl (HydrALAZINE INJ) 10 mg Q4 PRN IV. 02/08/17 08:45 03/10/17 08:44 Ioversol (Optiray 320) 125 ml UD PRN IV 02/08/17 11:30 02/12/17 11:29 Ceftriaxone Sodium 1 gm/ Dextrose 50 ml @ 100 mls/hr Q24H IV 02/08/17 14:30 02/18/17 14:29 02/08/17 15:07 100 MLS/HR Description This is a 21 electrode EEG with a single channel dedicated to limited EKG. The electrodes were placed in accordance with the International 10-20 system. There was frequent electrical electrode artifact. Quality of recording was fair. Hyperventilation and photic stimulus were not done. At the start of this recording the patient was in an awake state. Background was poorly organized with poorly formed anterior to posterior gradient. Background was composed of symmetric low to moderate amplitude predominantly 6 Hz theta frequencies with intermixed delta and alpha frequencies. There was no stage changes or sleep transients. Interpretation This is an abnormal routine EEG secondary to moderate background disorganization and slowing There was no electronic seizures or epileptiform discharges. Clinical Correlation This EEG indicates a moderate encephalopathy of nonspecific etiology. An EEG does not rule out epilepsy if there is strong clinical suspicion. <Electronically signed by Hali Morrison D.O.> Signed: 02/09/17 1303 Signed: The status of this report is Signed * If report status is Draft, the document has not been finalized by the responsible provider. MNE: PC.EEG <AttendingPhy>Joseph Keene D.O.</AttendingPhy><EDPhy>Kaitlyn Ware, </EDPhy> <FamilyPhy>Juventino Spencer M.D.</FamilyPhy> <PrimaryPhy>Juventino Spencer M.D.</PrimaryPhy><UnitNumber>[id number]</UnitNumber><VisitNumber> [id number]</VisitNumber><PatientName>MIGUEL WILKINS</PatientName><DateOfBirth></DateOfBirth><Age>81</Age><Location>C.2T</Location><ServiceDate></ServiceDate><CC>Hali Morrison D.O., Paul O., M.D.</CC><MNE>PC.EEG</MNE> (Zaina Durán ., LYDIA) Assessment and Plan 81 y/o male with a history of 2 recent strokes, coronary artery disease, DM II, HTN, and HLD who presents with hemorrhagic stroke. Hemorrhagic Stroke--stable - Reviewed Head CT - Area of increased density within the old right parietal infarct - Favoring cortical laminar necrosis/petechial hemorrhage - Repeat head CT 02/08 shows hemorrhage is stable. Consider another repeat head CT in 24 hours - Neurology Consult: Continue to hold antiplatelet therapy. Obtain EEG due to some RLE myoclonic jerking. Repeat CT head tomorrow morning. MRI findings likely represent subacute infarcts as opposed to new acute infarcts given recent CVA November. - CTA head: Extensive intracranial atherosclerosis with multifocal severe stenoses within the intracranial circulation -CTA neck: No significant stenosis, occlusion, or dissection identified within the carotid or vertebral arteries -MRI brain shows acute or subacute infarct superimposed on chronic infarcts. Laminar necrosis. -EEG shows non-specific moderate encephalopathy, no electronic seizure changes - Stroke Protocol - Discontinued Aspirin and Plavix - Failed dysphagia screen - Speech therapy evaluated: mechanical soft diet with thin liquids, aspiration precautions - PT/OT evaluate and treat: can return home with strong family support, home health PT. Non-ambulatory at baseline. UTI POA--stable - UA shows blood and leuk esterase, 4+ bacteria along with previous history of UTI along with indwelling ferguson - Previous UTI was pierce sensitive - 1 dose of Levaquin in ED - Urine culture >3 types organisms, all high counts. Recommend repeat collection - Repeat urine culture pinpoint growth, reincubating - Rocephin 1 gm IV qd. Day #2 of abx - Changed urinary catheter in ED Type 2 Diabetes--stable -HgbA1c on 02/07 was 7.1 - Hold Metformin -Insulin sliding scale -Check BSGs q ac and qhs Hypertension--stable - BP dropped to 108/64 this am, hold lisinopril for now HLD -Continue atorvastatin 80 mg PO qd History of CAD - Holding Aspirin 2/2 stroke - Continue carvedilol 3.125 mg PO BID BPH - Continue finasteride 5 mg PO qd DVT prophylaxis -SCDs Code Status -Level V, DO NOT RESUSCITATE (Zaina Durán ., PA-C) I agree with PA assessment and plan and have seen and examined pt myself Resting comfortably in bed VSS and labs reviewed MRI reviewed Repeat CT head in AM per neuro recs Will likely need to be restarted on antiplatelet med Myoclonic jerking noted per neuro, EEG ordered Cont PT/OT Cont to monitor Likely DC in next 24 hrs (Joseph Keene, D.O.)
[2017-02-09] MEDS: CEFTRIAXONE SOD INJ 1 GM in DEXTROSE 5% ADD-VANTAGE 50ML 50 ML IV SCH (14:25)
[2017-02-09] MEDS: ATORVASTATIN 40 MG TAB PO SCH (19:28)
[2017-02-10] VITALS (7 sets, daily range): BP systolic 133–169; BP diastolic 68–80; PULSE 53–59; TEMP 36.7–37.1; O2SAT 92–99
[2017-02-10 05:58] LABS: BASO % 0.3 %; BASO ABS # 0.02 K/uL (0-0.2); COMPLETE YES; EOS % 2.2 %; HEMATOCRIT 32.2 % (42-52); IG% 0.2 %; LYMPH % 38.1 %; LYMPH ABS # 2.26 K/uL (1.2-3.4); MEAN CELL VOLUME 98.2 fL (80-100); MEAN CORPUSCULAR HEMOGLOBIN 33.2 pg (25-34); MEAN CORPUSCULAR HGB CONC 33.9 g/dl (32-36); MEAN PLATELET VOLUME 8.6 fL (7.4-10.4); MONO % 7.6 %; NEUT % 51.6 %; PLATELET COUNT 159 K/uL (130-400); RED BLOOD COUNT 3.28 M/uL (4.7-6.1); WHITE BLOOD COUNT 5.93 K/uL (4.8-10.8)
[2017-02-10 06:37] LABS: BUN/CREATININE RATIO 36.6 (10-20); CALCIUM 8.1 mg/dl (8.5-10.1); CREATININE 0.64 mg/dl (0.60-1.40); POTASSIUM 3.6 mmol/L (3.5-5.1)
--- NOTE | 2017-02-10 06:59 | DIAGNOSTIC IMAGING REPORT ---
CT HEAD WITHOUT CONTRAST (CT) CLINICAL HISTORY: Stroke. Follow-up study. COMPARISON STUDY: 02/08/2017 TECHNIQUE: Axial CT of the brain is performed from the vertex to the skull base. IV contrast was not administered for this examination. CT DOSE: 614.27 mGy.cm FINDINGS: Multifocal infarcts are again visualized. These involve the right frontal lobe, the left occipital lobe, and right parietal lobe. There is mild serpiginous increased density within the right parietal infarct, consistent with chronic mineralization/petechial hemorrhage. There is no midline shift. There is no intraventricular hemorrhage. There are patchy white matter hypodensities likely on a small vessel basis. There is no evidence of pathologic ventricular dilatation. There is no evidence of acute sinusitis IMPRESSION: No significant change from the preceding study. Multifocal infarcts are again visualized. Electronically signed by: Jeb Joshua M.D. 02/10/2017 6:57 AM Dictated Date/Time: 02/10/2017 6:55 AM
[2017-02-10] MEDS: INSULIN ASPART 100 UNITS/ML 3 ML PEN SC SCH ×2 (07:00→11:55)
[2017-02-10] MEDS: FINASTERIDE 5 MG TAB PO SCH (08:26)
[2017-02-10] MEDS: CARVEDILOL 3.125 MG TAB PO SCH (08:27)
--- NOTE | 2017-02-10 09:37 | Neurology Progress Notes ---
Neurology Progress Note Date of Service Feb 10, 2017. Subjective Follow-up for stroke No significant change in this patient's clinical status. A follow-up CT of the head was completed yesterday. No significant change in the previously identified area of laminar necrosis/minimal petechial hemorrhage within the right parietal lobe infarct. The patient does not have any new complaints. Electroencephalogram completed yesterday did not reveal any focal epileptiform abnormalities. There was evidence of a moderate generalized encephalopathy, however. Objective Date Time Temp Pulse Resp B/P (MAP) Pulse Ox O2 Delivery O2 Flow Rate FiO2 02/10/17 04:00 Room Air 02/10/17 04:00 37.1 59 16 155/80 (105) 98 Room Air 02/10/17 00:06 36.7 53 18 161/76 (104) 92 02/10/17 00:00 Room Air 02/09/17 20:00 Room Air 02/09/17 19:00 37.3 71 16 151/78 (102) 96 Room Air 02/09/17 16:00 Room Air 02/09/17 15:16 37.0 64 16 118/71 (87) 97 Room Air 02/09/17 11:37 Room Air 02/09/17 11:29 36.8 57 19 149/66 (93) 97 Room Air 02/09/17 10:32 57 162/81 (108) Last 24 Hours Test 02/09/17 11:10 02/09/17 16:02 02/09/17 19:48 02/10/17 05:08 Bedside Glucose 190 mg/dl 221 mg/dl 209 mg/dl White Blood Count 5.93 K/uL Red Blood Count 3.28 M/uL Hemoglobin 10.9 g/dL Hematocrit 32.2 % Mean Corpuscular Volume 98.2 fL Mean Corpuscular Hemoglobin 33.2 pg Mean Corpuscular Hemoglobin Concent 33.9 g/dl Platelet Count 159 K/uL Mean Platelet Volume 8.6 fL Neutrophils (%) (Auto) 51.6 % Lymphocytes (%) (Auto) 38.1 % Monocytes (%) (Auto) 7.6 % Eosinophils (%) (Auto) 2.2 % Basophils (%) (Auto) 0.3 % Neutrophils # (Auto) 3.06 K/uL Lymphocytes # (Auto) 2.26 K/uL Monocytes # (Auto) 0.45 K/uL Eosinophils # (Auto) 0.13 K/uL Basophils # (Auto) 0.02 K/uL RDW Standard Deviation 51.8 fL RDW Coefficient of Variation 14.5 % Immature Granulocyte % (Auto) 0.2 % Immature Granulocyte # (Auto) 0.01 K/uL Sodium Level 143 mmol/L Potassium Level 3.6 mmol/L Chloride Level 108 mmol/L Carbon Dioxide Level 26 mmol/L Anion Gap 9.0 mmol/L Blood Urea Nitrogen 23 mg/dl Creatinine 0.64 mg/dl Est Creatinine Clear Calc Drug Dose 81.7 ml/min Estimated GFR () 106.4 Estimated GFR (Non- 91.8 BUN/Creatinine Ratio 36.6 Random Glucose 129 mg/dl Calcium Level 8.1 mg/dl Test 02/10/17 06:25 Bedside Glucose 136 mg/dl Exam: This patient's neurological assessment is unchanged compared with yesterday, however, episodic jerking of the right lower extremity is not observed this morning. Continues to lie quietly in bed, leaning to the left. He is relatively still and does not speak spontaneously. He does answer questions appropriately. Current Inpatient Medications Medications (Trade) Dose Ordered Sig/Hiram Route Start Time Stop Time Status Last Admin Dose Admin Miscellaneous Information (Pharmacist Discharge Med Rec Consult) 1 ea UD PRN N/A 02/07/17 16:30 03/09/17 16:29 Al Hydrox/Mg Hydrox/Simethicone (Maalox Max Susp) 15 ml Q4H PRN PO 02/07/17 16:30 03/09/17 16:29 Magnesium Hydroxide (Milk Of Magnesia Susp) 30 ml Q12H PRN PO 02/07/17 16:30 03/09/17 16:29 Ondansetron HCl (Zofran Inj) 4 mg Q6H PRN IV 02/07/17 16:30 03/09/17 16:29 Polyethylene (Miralax Powder Packet) 17 gm DAILY PRN PO 02/07/17 16:30 03/09/17 16:29 Acetaminophen (Tylenol Tab) 500 mg Q4 PRN PO 02/07/17 17:30 03/09/17 17:29 02/08/17 17:37 500 MG Atorvastatin Calcium (Lipitor Tab) 80 mg HS PO 02/07/17 21:00 03/09/17 20:59 02/09/17 19:28 80 MG Carvedilol (Coreg Tab) 3.125 mg BID PO 02/07/17 21:00 03/09/17 20:59 02/10/17 08:27 3.125 MG Finasteride (Proscar Tab) 5 mg DAILY PO 02/08/17 09:00 03/10/17 08:59 02/10/17 08:26 5 MG Lisinopril (Zestril Tab) 5 mg DAILY PO 02/08/17 09:00 03/10/17 08:59 Future Hold Insulin Aspart (novoLOG ASPART) SLIDING SCALE ACHS SC 02/07/17 21:00 03/09/17 20:59 02/09/17 21:06 2 UNITS Glucose (Glucose 40% Gel) 15-30 GRAMS 15 GRAMS... UD PRN PO 02/07/17 17:30 03/09/17 17:29 Glucose (Glucose Chew Tab) 4-8 Tablets 4 Tabl... UD PRN PO 02/07/17 17:30 03/09/17 17:29 Dextrose (Dextrose 50% 50ML Syringe) 25-50ML OF 50% DW IV FOR... UD PRN IV 02/07/17 17:30 03/09/17 17:29 Glucagon (Glucagon Inj) 1 mg UD PRN SQ 02/07/17 17:30 03/09/17 17:29 Hydralazine HCl (HydrALAZINE INJ) 10 mg Q4 PRN IV. 02/08/17 08:45 03/10/17 08:44 Ioversol (Optiray 320) 125 ml UD PRN IV 02/08/17 11:30 02/12/17 11:29 Ceftriaxone Sodium 1 gm/ Dextrose 50 ml @ 100 mls/hr Q24H IV 02/08/17 14:30 02/18/17 14:29 02/09/17 14:25 100 MLS/HR Impression Stable, small area of petechial hemorrhage within the previously identified right parietal lobe infarct. Multiple neurological deficits as described previously and related to multiple infarcts in different vascular territories. This patient is clinically stable. No evidence of seizure activity on yesterday's EEG, the study did reveal a moderate encephalopathy which I suspect is chronic. Plan Restart Plavix 75 mg per day. I would recommend against using 2 antiplatelet agents in this patient going forward. Case discussed with hospitalist physician's assistant executive housekeeper at bedside this morning No further immediate recommendations
--- NOTE | 2017-02-10 09:51 | Discharge Instructions ---
Discharge Instructions Date of Service Feb 10, 2017. Admission Reason for Admission: Hemorrhagic Stroke Discharge Discharge Diagnosis / Problem: Hemorrhagic stroke Discharge Goals Goal(s): Decrease discomfort, Improve function, Diagnostic testing Activity Recommendations Activity Limitations: resume your previous activity (as tolerated/per physical therapy) . Instructions / Follow-Up Instructions / Follow-Up You were admitted to the hospital after presenting with altered mental status/ decreased alertness. You were found to have a hemorrhagic stroke on CT scan. Your antiplatelet medications, aspirin and Plavix, were held due to the bleeding. Two additional CT scans showed that the hemorrhage remained stable. Neurology followed your case as well, and you have been medically cleared to return home with your home health services and family support. You will now continue your Plavix, but your aspirin will be held per neurology recommendations. You were also suspected to have a urinary tract infection (UTI). The final cultures are being reincubated, but you received an adequate treatment course of IV antibiotics while inpatient. Medications: *STOP taking aspirin 81 mg. *Continue Plavix 75 mg by mouth daily. *Continue carvedilol (Coreg) 3.125 mg by mouth twice a day. DO NOT TAKE IF HEART RATE IS BELOW 60 or if systolic blood pressure (top number) is less than 100. You can purchase a pulse oximeter in the store/pharmacy to easily check the heart rate. *Continue your other home medications as prescribed. Follow up: *Follow up with your primary care provider, Dr. Spencer, on TuesdayFebruary 14, at 9 :30 am. *You have been scheduled to follow up with Dr. Gresham, of neurology, on February 25 at 11:00 am. Please seek medical attention if you experience fevers, chills, sweats, altered mental status, lightheadedness/dizziness, sudden changes in vision, loss of consciousness, chest pain, shortness of breath, nausea, vomiting, numbness or tingling. Risk Factors for Stroke: You can reduce your chances of stroke by working with your medical provider to adopt a healthy lifestyle. Some specific ways to lower your chance of stroke are: * If you are a smoker, now is the time to stop smoking cigarettes * If you are diabetic, improve the control of your blood sugars * Avoid excessive amounts of alcohol * Control high blood pressure * Lose weight if you are overweight * Be sure to lead an active lifestyle if able * Eat a healthy diet low in salt, cholesterol and fat You should know about other risk factors for stroke that you are unable to control. These include: * Age 55 years or older * Male gender * Certain racial groups: , or / * Family History of Stroke, Mini stroke or Heart Attack * Sickle Cell Disease Follow Up: It is important for you to keep your follow up appointments with your medical provider. Current Hospital Diet Patient's current hospital diet: AHA Diet (Heart Healthy), Diabetes Type 2 Diet Discharge Diet Recommended Diet: AHA Diet (Heart Healthy), Diabetes Type 2 Diet Pending Studies Studies pending at discharge: yes List of pending studies: Final urine culture Laboratory Results Hemoglobin A1c Test 02/07/17 13:00 Range/Units Estimated Average Glucose 157 mg/dl Hemoglobin A1c 7.1 H 4.5-5.6 % Lipid Panel Test 02/08/17 05:55 Range/Units Triglycerides Level 122 0-150 mg/dl Cholesterol Level 86 0-200 mg/dl HDL Cholesterol 29 mg/dl Cholesterol/HDL Ratio 3.0 LDL Cholesterol, Calculated 33 mg/dl Medical Emergencies . Who to Call and When: Medical Emergencies: Call 911 immediately if you experience any of the following warning signs and symptoms of Stroke: * Sudden numbness or weakness of the face, arm or leg, especially on one side of the body * Sudden confusion, trouble speaking or understanding * Sudden trouble seeing in one or both eyes * Sudden trouble walking, dizziness, loss of balance or coordination * Sudden severe headache with no cause Do not delay calling 911 if you experience any warning signs or symptoms of a stroke. Delay in seeking medical attention may affect what treatments can be given to you. . Non-Emergent Contact Non-Emergency issues call your: Primary Care Provider Call Non-Emergent contact if: you have a fever, you have any medication questions . Past History Medical & Surgical History: (1) CVA (cerebrovascular accident due to intracerebral hemorrhage) (2) Altered mental state (3) UTI (urinary tract infection) . "Provider Documentation" section prepared by Zaina Durán. . Stroke Core Measures Reason no t-PA for Stroke: Contraindicated Reason no antithrom by day 2: Treatment not indicated Reason no antithrom at D/C: Treatment provided - N/A Reason no statin at D/C: Treatment provided - N/A Reason no anticoag w/a fib: Treatment not indicated VTE Core Measure Inpt VTE Proph given/why not?: SCD's
[2017-02-10] MEDS ORDERED: CEFTRIAXONE SOD INJ 1 GM in DEXTROSE 5% ADD-VANTAGE 50ML 50 ML IV STA (10:12)
--- NOTE | 2017-02-10 13:35 | Discharge Summary ---
Discharge Summary Date of Service Feb 10, 2017. (Zaina Durán, LYDIA) Discharge Summary Admission Date: Feb 07, 2017 at 16:47 Discharge Date: Feb 10, 2017 Discharge Disposition: Home with services Principal Diagnosis: Hemorrhagic CVA Immunizations: Have You Had Influenza Vaccine: Yes Influenza Vaccine Date: Jun 05, 2008 History of Tetanus Vaccine?: Yes Tetanus Immunization Date: Aug 05, 2005 History of Pneumococcal: Yes History of Hepatitis B Vaccine: No Procedures: [place] [address] Procedure Note Patient Name: MIGUEL WILKINS Admit Date: 02/07/1706/12/17 Med Rec: [id number] Att Phy: Joseph Keene D.O. Acct ID: [id number] Hailey Phy: Juventino Spencer M.D. Date: 1935 Fam Phy: Juventino Spencer M.D. Age: 81 Location: [facility] Sex: M Room/Bed: [facility] CC: Hali Morrison D.O., Paul O., M.D. *NOTICE TO RECEIVING [employer]/AGENCY This information is strictly Confidential and protected under [place] law. [place] law prohibits you from making any further disclosure of this information unless further disclosure is expressly permitted by the written consent of the person to whom it pertains or is authorized by law. A general authorization for the release of medical or other information is not sufficient for this purpose. Hospital accepts no responsibility if the information is made available to any other person, INCLUDING THE PATIENT. EEG Procedure Note Date of Service Feb 09, 2017. Start / End Times Start Time: 11:54 AM End Time: 12:14 PM Referring Physician Minesh Gresham History This is a 81-year-old male with jerking of the right lower extremity concerning for seizure activity. EEG for further evaluation of possible seizure etiology. Home Medication List Scheduled Aspirin (Aspirin Ec), 81 MG PO DAILY Atorvastatin (Lipitor), 80 MG PO HS Carvedilol (Carvedilol), 3.125 MG PO BID Clopidogrel (Plavix), 75 MG PO DAILY Finasteride (Finasteride), 5 MG PO DAILY Lisinopril (Zestril), 5 MG PO DAILY Metformin Hcl (Glucophage), 500 MG PO DAILY Senna (Senokot), 17.2 MG PO BID Scheduled PRN Acetaminophen (Tylenol), 500 MG PO Q4 PRN for Pain Nitroglycerin (Nitrostat), 0.4 MG PO UD PRN for Chest Pain Inpatient Medication List Current Inpatient Medications Medications (Trade) Dose Ordered Sig/Hiram Route Start Time Stop Time Status Last Admin Dose Admin Miscellaneous Information (Pharmacist Discharge Med Rec Consult) 1 ea UD PRN N/A 02/07/17 16:30 03/09/17 16:29 Al Hydrox/Mg Hydrox/Simethicone (Maalox Max Susp) 15 ml Q4H PRN PO 02/07/17 16:30 03/09/17 16:29 Magnesium Hydroxide (Milk Of Magnesia Susp) 30 ml Q12H PRN PO 02/07/17 16:30 03/09/17 16:29 Ondansetron HCl (Zofran Inj) 4 mg Q6H PRN IV 02/07/17 16:30 03/09/17 16:29 Polyethylene (Miralax Powder Packet) 17 gm DAILY PRN PO 02/07/17 16:30 03/09/17 16:29 Acetaminophen (Tylenol Tab) 500 mg Q4 PRN PO 02/07/17 17:30 03/09/17 17:29 02/08/17 17:37 500 MG Atorvastatin Calcium (Lipitor Tab) 80 mg HS PO 02/07/17 21:00 03/09/17 20:59 02/08/17 23:35 80 MG Carvedilol (Coreg Tab) 3.125 mg BID PO 02/07/17 21:00 03/09/17 20:59 02/08/17 23:35 3.125 MG Finasteride (Proscar Tab) 5 mg DAILY PO 02/08/17 09:00 03/10/17 08:59 02/09/17 10:22 5 MG Lisinopril (Zestril Tab) 5 mg DAILY PO 02/08/17 09:00 03/10/17 08:59 Future Hold Insulin Aspart (novoLOG ASPART) SLIDING SCALE ACHS SC 02/07/17 21:00 03/09/17 20:59 02/09/17 11:44 2 UNITS Glucose (Glucose 40% Gel) 15-30 GRAMS 15 GRAMS... UD PRN PO 02/07/17 17:30 03/09/17 17:29 Glucose (Glucose Chew Tab) 4-8 Tablets 4 Tabl... UD PRN PO 02/07/17 17:30 03/09/17 17:29 Dextrose (Dextrose 50% 50ML Syringe) 25-50ML OF 50% DW IV FOR... UD PRN IV 02/07/17 17:30 03/09/17 17:29 Glucagon (Glucagon Inj) 1 mg UD PRN SQ 02/07/17 17:30 03/09/17 17:29 Hydralazine HCl (HydrALAZINE INJ) 10 mg Q4 PRN IV. 02/08/17 08:45 03/10/17 08:44 Ioversol (Optiray 320) 125 ml UD PRN IV 02/08/17 11:30 02/12/17 11:29 Ceftriaxone Sodium 1 gm/ Dextrose 50 ml @ 100 mls/hr Q24H IV 02/08/17 14:30 02/18/17 14:29 02/08/17 15:07 100 MLS/HR Description This is a 21 electrode EEG with a single channel dedicated to limited EKG. The electrodes were placed in accordance with the International 10-20 system. There was frequent electrical electrode artifact. Quality of recording was fair. Hyperventilation and photic stimulus were not done. At the start of this recording the patient was in an awake state. Background was poorly organized with poorly formed anterior to posterior gradient. Background was composed of symmetric low to moderate amplitude predominantly 6 Hz theta frequencies with intermixed delta and alpha frequencies. There was no stage changes or sleep transients. Interpretation This is an abnormal routine EEG secondary to moderate background disorganization and slowing There was no electronic seizures or epileptiform discharges. Clinical Correlation This EEG indicates a moderate encephalopathy of nonspecific etiology. An EEG does not rule out epilepsy if there is strong clinical suspicion. <Electronically signed by Hali Morrison D.O.> Signed: 02/09/17 [id number] Signed: The status of this report is Signed * If report status is Draft, the document has not been finalized by the responsible provider. MNE: PC.EEG <AttendingPhy>Joseph Keene D.O.</AttendingPhy><EDPhy>Pheasant, Kaitlyn S., DO</EDPhy> <FamilyPhy>Juventino Spencer M.D.</FamilyPhy> <PrimaryPhy>Juventino Spencer M.D.</PrimaryPhy><UnitNumber>[id number]</UnitNumber><VisitNumber> [id number]</VisitNumber><PatientName>MIGUEL WILKINS</PatientName><DateOfBirth></DateOfBirth><Age>81</Age><Location>[facility]</Location><ServiceDate></ServiceDate><CC>Hali Morrison D.O., Paul O., M.D.</CC><MNE>PC.EEG</MNE> Consultations: Neurology--Dr. Gresham (Luis Armando Zaina ., PA-C) Medication Reconciliation Continued Medications: Acetaminophen (Tylenol) 500 Mg Tab 500 MG PO Q4 PRN for Pain, TAB Atorvastatin (Lipitor) 80 Mg Tab 80 MG PO HS, TAB Carvedilol (Carvedilol) 3.125 Mg Tab 3.125 MG PO BID for 30 Days, #60 TAB Clopidogrel (Plavix) 75 Mg Tab 75 MG PO DAILY, TAB Finasteride (Finasteride) 5 Mg Tab 5 MG PO DAILY Lisinopril (Zestril) 5 Mg Tab 5 MG PO DAILY, TAB Metformin Hcl (Glucophage) 500 Mg Tab 500 MG PO DAILY Nitroglycerin (Nitrostat) 0.4 Mg Tab 0.4 MG PO UD PRN for Chest Pain Senna (Senokot) 8.6 Mg Tab 17.2 MG PO BID, TAB Discontinued Medications: Aspirin (Aspirin Ec) 81 Mg Tab 81 MG PO DAILY Discharge Exam Patient reports feeling well. Son and are at bedside. Patient denies any pain or shortness of breath. Ferguson catheter in place. Mentally at baseline per family. The patient denies fevers, chills, sweats, chest pain, palpitations , claudication, cough, wheezing, shortness of breath, nausea, vomiting, abdominal pain, dysuria, hematuria, urinary retention, paralysis, numbness and tingling. Review of Systems: Constitutional: No fever, No chills, No sweats Eyes: No worsening of vision, No eye pain, No diplopia ENT: No hearing loss, No sore throat, No trouble swallowing Respiratory: No cough, No wheezing, No shortness of breath Cardiovascular: No chest pain, No claudication, No palpitations Abdomen: No pain, No nausea, No vomiting Musculoskeletal: No joint pain, No muscle pain, No calf pain Genitourinary - Male: No hematuria, No dysuria, No urinary retention Neurologic: + weakness, No paralysis, No numbness/tingling Integumentary: No rash, No itch, No color change Physical Exam: General Appearance: WD/WN, no apparent distress Eyes: normal inspection, PERRL, EOMI ENT: normal ENT inspection, hearing grossly normal, pharynx normal Neck: supple, no JVD, trachea midline Respiratory/Chest: lungs clear, normal breath sounds, no respiratory distress Cardiovascular: no gallop, + bradycardia (regular rhythm), + systolic murmur Abdomen / GI: normal bowel sounds, non tender, soft Extremities: normal inspection, no calf tenderness, no pedal edema Neurologic/Psychiatric: alert, normal mood/affect, + motor weakness (LLE 1/ 5 strength. LUE 3/5 strength. RLE 2/5 (residual from prior CVA). RUE 4/5 ( residual)), + disoriented (baseline) Skin: normal color, warm/dry, no rash (Zaina Durán ., SILVINAC) Hospital Course 81 y/o male with a history of 2 recent strokes, coronary artery disease, DM II, HTN, and HLD who presents with hemorrhagic stroke. Hemorrhagic Stroke, AMS/encephalopathy secondary to CVA--stable - Reviewed Head CT - Area of increased density within the old right parietal infarct - Favoring cortical laminar necrosis/petechial hemorrhage - Repeat head CT 02/08 shows hemorrhage is stable. Second repeat head CT 02/10 no significant changes. - Neurology Consult: Resume mono-antiplatelet therapy. Resume Plavix alone, stop aspirin. Stable for discharge. MRI findings likely represent subacute infarcts as opposed to new acute infarcts given recent CVA November. - CTA head: Extensive intracranial atherosclerosis with multifocal severe stenoses within the intracranial circulation -CTA neck: No significant stenosis, occlusion, or dissection identified within the carotid or vertebral arteries -MRI brain shows acute or subacute infarct superimposed on chronic infarcts. Laminar necrosis. -EEG shows non-specific moderate encephalopathy, no electronic seizure changes - Stroke Protocol - Discontinued Aspirin and Plavix, resume Plavix on discharge - Failed dysphagia screen - Speech therapy evaluated: mechanical soft diet with thin liquids, aspiration precautions - PT/OT evaluate and treat: can return home with strong family support, home health PT. Non-ambulatory at baseline. UTI POA--resolved - UA shows blood and leuk esterase, 4+ bacteria along with previous history of UTI along with indwelling ferguson - Previous UTI was pierce sensitive - 1 dose of Levaquin in ED - Urine culture >3 types organisms, all high counts. Recommend repeat collection - Repeat urine culture pinpoint growth, reincubating - Rocephin 1 gm IV qd. Received 3 days abx, no need to continue antibiotics on discharge for uncomplicated UTI - Changed urinary catheter in ED Type 2 Diabetes--stable -HgbA1c on 02/07 was 7.1 - Hold Metformin, resume on discharge -Insulin sliding scale -Check BSGs q ac and qhs Hypertension--stable - BP stable last 24 hours prior to discharge - Continue lisinopril 5 mg PO qd HLD -Continue atorvastatin 80 mg PO qd History of CAD - Holding Aspirin 2/2 stroke, per neuro recs - Continue carvedilol 3.125 mg PO BID. Instructed to hold carvedilol if HR <60 or SBP <100 BPH - Continue finasteride 5 mg PO qd DVT prophylaxis -SCDs Code Status -Level V, DO NOT RESUSCITATE Dispo -Stable for discharge home with services -F/u appt with PCP 02/14 and neuro 02/25 Total Time Spent: Greater than 30 minutes This includes examination of the patient, discharge planning, medication reconciliation, and communication with other providers. (Zaina Durán ., PA-C) I agree with PA assessment and plan and have seen and examined pt myself Resting comfortably in bed DC home with plavix only CT heat reviewed Labs and VS reviewed Appreciate neurology recs Pt back to baseline with residual weakness noted (Joseph Keene D.O.) Discharge Instructions Please refer to the electronic Patient Visit Report (Discharge Instructions) for additional information. (Zaina Durán ., PA-C) Additional Copies To Juventino Spencer M.D.
--- NOTE | 2017-02-10 15:10 | Pharmacy Progress Note ---
Pharmacist Stroke Counseling Date of Service Feb 10, 2017. Scope Pharmacy has been consulted to provide medication discharge counseling for this patient admitted with hemorrhagic stroke as per the Pharmacist Discharge Counseling for Stroke Patients Protocol. Medications on Discharge Continued Medications: Acetaminophen (Tylenol) 500 Mg Tab 500 MG PO Q4 PRN for Pain, TAB Atorvastatin (Lipitor) 80 Mg Tab 80 MG PO HS, TAB Carvedilol (Carvedilol) 3.125 Mg Tab 3.125 MG PO BID for 30 Days, #60 TAB Clopidogrel (Plavix) 75 Mg Tab 75 MG PO DAILY, TAB Finasteride (Finasteride) 5 Mg Tab 5 MG PO DAILY Lisinopril (Zestril) 5 Mg Tab 5 MG PO DAILY, TAB Metformin Hcl (Glucophage) 500 Mg Tab 500 MG PO DAILY Nitroglycerin (Nitrostat) 0.4 Mg Tab 0.4 MG PO UD PRN for Chest Pain Senna (Senokot) 8.6 Mg Tab 17.2 MG PO BID, TAB Discontinued Medications: Aspirin (Aspirin Ec) 81 Mg Tab 81 MG PO DAILY Action The above medications, specifically ones for stroke treatment/prophylaxis that is Plavix and Lipitor for this patient have been reviewed in detail with the patient's prior to discharge. This includes indication, common adverse reactions, drug interactions, and medication administration. Medication counseling has been employed using the teach-back method to ensure understanding. Outcome The patient's have demonstrated understanding of the medications. Please note, they are aware that the pharmacist will call them within 72 hours post-discharge to confirm that the appropriate medications are being taken and answer any further medication related questions the patient might have at that time. Contact information Individual to be contacted: Teresita Relationship to patient (if applicable): Phone number: [phone] Best time to call: Anytime Additional comments: I said that we would call on Tuesday, 02/14 Thank you for allowing pharmacy to be involved in the care of this patient. Please call [phone] or [phone] with any additional questions Discharge Information Please stop taking Aspirin.
--- NOTE | 2017-02-14 12:26 | Pharmacy Progress Note ---
Pharmacist Post D/C Phone Note Date of phone call: Feb 14, 2017. Individual with whom pharmacist spoke to: Teresita, patient's The following questions were reviewed during the phone call with responses listed below each: Can you tell me the medications that you are currently taking as well as when and how you take each medication? - Medications Dose Route/Sig Max Daily Dose Days Date Category Senokot (Senna) 8.6 Mg Tab 17.2 Mg PO BID 02/07/17 Reported Tylenol (Acetaminophen) 500 Mg Tab 500 Mg PO Q4 PRN 02/07/17 Reported Plavix (Clopidogrel Bisulfate) 75 Mg Tab 75 Mg PO DAILY 02/07/17 Reported Zestril (Lisinopril) 5 Mg Tab 5 Mg PO DAILY 02/07/17 Reported Lipitor (Atorvastatin Calcium) 80 Mg Tab 80 Mg PO HS 02/07/17 Reported Carvedilol 3.125 Mg Tab 3.125 Mg PO BID 30 12/17/16 Rx Finasteride 5 Mg Tab 5 Mg PO DAILY 12/15/16 Reported Nitrostat (Nitroglycerin) 0.4 Mg Tab 0.4 Mg PO UD PRN 08/15/14 Reported Glucophage (Metformin Hcl) 500 Mg Tab 500 Mg PO DAILY 02/26/13 Reported When have you missed any doses of your medications? - NONE What side effects are you having from your medications? - Diarrhea two days in a row after constipation; hold senna at this time per PCP and re-evaluate at next appointment next week What questions do you have about your medications? - NONE What problems are you having obtaining your medications? - NONE When is your next appointment with your primary care doctor? - was to be this AM @0930 but patient unable to get there - Dr. Penaloza to be seeing patient next week- office to call and reschedule appointment with her Additional comments: - Senna on hold for now due to some diarrhea after 2 days of being constipated; Teresita is doing the best she can for her but has been having difficult caring for him since the nursing agency has not reached out since discharge. She called today and they are supposed to come tomorrow but she needs a nurse to start coming to the house to take some of the pressure off her. I plan to make some phone calls today to ensure that this is taken care of. She gave me the number of the nursing aid [phone] and I will start with that number and possibly utilize [facility] case management if necessary. m As per the Pharmacist Discharge Counseling for Stroke Patients Protocol, this phone call has been completed within 72 hours of discharge. Thank you for allowing us to be involved in the care of this patient.
--- NOTE | 2017-03-28 01:41 | EMERGENCY ROOM VISIT NOTE ---
ED Visit Note First contact with patient: 13:34 Patient seen and examined at bedside, family made aware of all results. Discussed the case with the resident and agree with plan. Patient admitted to the hospitalist following discussion with neurology. Patient's vital signs otherwise stable, all antiplatelet anticoagulation on the patient has been held.
== END 2017-02-10 16:40 | disposition home health service (06) | DRG 64 ==
LOC: EDBD 13:25 → C.EDA 13:26 → C.2T 16:47 → ENRESERV 16:54
PROVIDERS: ADMIT Student in an Organized Health Care Education/Training Program; ATTEND Hospitalist
DX: I61.9 Nontraumatic intracerebral hemorrhage, unspecified (principal); G93.40 Encephalopathy, unspecified; N39.0 Urinary tract infection, site not specified; I69.951 Hemiplegia and hemiparesis following unspecified cerebrovascular disease affecting right dominant side; E11.9 Type 2 diabetes mellitus without complications; I10 Essential (primary) hypertension; N40.0 Benign prostatic hyperplasia without lower urinary tract symptoms; Z66 Do not resuscitate; E78.5 Hyperlipidemia, unspecified; I25.10 Atherosclerotic heart disease of native coronary artery without angina pectoris; R00.1 Bradycardia, unspecified; R01.1 Cardiac murmur, unspecified; Z79.02 Long term (current) use of antithrombotics/antiplatelets; Z79.82 Long term (current) use of aspirin; Z79.84 Long term (current) use of oral hypoglycemic drugs; Z79.899 Other long term (current) drug therapy; Z83.3 Family history of diabetes mellitus; Z82.49 Family history of ischemic heart disease and other diseases of the circulatory system

== ENCOUNTER 2017-03-29 11:25 | Emergency (ER) | payer BC, OTHER ==
[~2017-03-29] VITALS: Ht 167.6 cm; Wt 62.3 kg
[~2017-03-29 11:25] MED LIST changes: +ACET-1256 PO; -ASPI81TA28 PO; +ATOR-26 PO; +CLOP1TAB15 PO; -CPR500 PO; -LISI-461 PO; +LISI-729 PO; -LPT40 PO; -OMEG10007 PO; +SENN-61 PO
[2017-03-29 11:33] VITALS: TEMP 36.5; O2SAT 98; Ht 167.6 cm; Wt 62.3 kg
[2017-03-29 11:55] LABS: HEMATOCRIT 32.1 % (42-52); MEAN CELL VOLUME 99.1 fL (80-100); MEAN CORPUSCULAR HEMOGLOBIN 32.1 pg (25-34); MEAN CORPUSCULAR HGB CONC 32.4 g/dl (32-36); MEAN PLATELET VOLUME 8.4 fL (7.4-10.4); PLATELET COUNT 154 K/uL (130-400); RED BLOOD COUNT 3.24 M/uL (4.7-6.1); WHITE BLOOD COUNT 6.47 K/uL (4.8-10.8)
[2017-03-29] MEDS ORDERED: ASPIRIN 81 MG CHEW PO ONE (12:00)
[2017-03-29 12:08] LABS: PARTIAL THROMBOPLASTIN RATIO 1.2
[2017-03-29 12:17] LABS: BUN/CREATININE RATIO 51.1 (10-20); CALCIUM 8.6 mg/dl (8.5-10.1); CREATININE 0.52 mg/dl (0.60-1.40); POTASSIUM 3.9 mmol/L (3.5-5.1)
[2017-03-29 12:22] LABS: ALB/GLOB RATIO 0.7 (0.9-2); CKMB/CK RATIO 2.8 (0-3.0)
--- NOTE | 2017-03-29 12:27 | DIAGNOSTIC IMAGING REPORT ---
CHEST ONE VIEW PORTABLE CLINICAL HISTORY: cp pt dyspnea COMPARISON STUDY: 02/07/2017 FINDINGS: Thoracic scoliosis. Prior median sternotomy. Considerable degenerative change right shoulder unchanged from the prior study. The lungs are considered clear. IMPRESSION: Chronic change. No acute process. The above report was generated using voice recognition software. It may contain grammatical, syntax or spelling errors. Electronically signed by: Malik Stacy M.D. 03/29/2017 12:26 PM Dictated Date/Time: 03/29/2017 12:25 PM
[2017-03-29] MEDS ORDERED: CLON0.5T3 PO (13:23)
--- NOTE | 2017-03-29 13:24 | EMERGENCY ROOM VISIT NOTE ---
History Report prepared by Kateryna: Tyler Smith Under the Supervision of: Dr. Chris Vaca D.O. First contact with patient: 11:46 Chief Complaint: CHEST PAIN Stated Complaint: CHEST PAIN Nursing Triage Summary: Pt presents from home via als. 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 Pt does have a significant cardiac hx and hx of CVA with left sided deficit and slow/slurred speech that is baseline for him. Pt presents alert and oriented x4, denies dyspnea or CP upon arrival. History of Present Illness The patient is an 81 year old male on hospice who presents to the Emergency Room via ALS with complaints of resolved chest pain that started last night. Per the patient's , the patient was being fed breakfast, and proceeded to tell the patient's about the chest pain, which had been going on since last night. The patient's notes that she did not notice the patient being in any distress last night, but she did notice that the patient was having left- sided weakness, but that is chronic. The patient's last stroke affected his left side as well. The patient's gave the patient Nitroglycerin and waited 5 minutes, with no relief of pain, so she gave the patient another one, with relief of pain. The patient's then called the hospice office for recommendation of what to do next. Any shortness of breath was denied on behalf of the patient. Per the patient, he feels fine currently with no pain. The patient's right leg has been weak ever since his first stroke. The patient moves moves his left arm very little. He takes Plavix daily. Source of History: patient, spouse/significant other, nursing staff Onset: Last night Position: chest Timing: resolved Modifying Factors (Relieving): other (Nitro) Associated Symptoms: No SOB Note: Associated symptoms: Currently denies any pain. Review of Systems See HPI for pertinent positives & negatives. A total of 10 systems reviewed and were otherwise negative. Past Medical & Surgical Medical Problems: (1) CAD (coronary artery disease) (2) Chest pain (3) Confusion (4) CVA (cerebral infarction) (5) Diabetes (6) Hemorrhagic stroke (7) Hyperlipidemia Family History Diabetes mellitus Hypertension Social History Smoking Status: Never Smoker Alcohol Use: none Drug Use: none Marital Status: Housing Status: lives with family Occupation Status: retired Current/Historical Medications Scheduled Atorvastatin (Lipitor), 80 MG PO HS Carvedilol (Carvedilol), 3.125 MG PO BID Clonazepam (Klonopin), 0.5 MG PO QPM Clopidogrel (Plavix), 75 MG PO DAILY Finasteride (Finasteride), 5 MG PO DAILY Lisinopril (Zestril), 5 MG PO DAILY Metformin Hcl (Glucophage), 500 MG PO DAILY Senna (Senokot), 17.2 MG PO BID Scheduled PRN Acetaminophen (Tylenol), 500 MG PO Q4 PRN for Pain Nitroglycerin (Nitrostat), 0.4 MG PO UD PRN for Chest Pain Allergies Coded Allergies: No Known Allergies (Verified , 02/07/17) Physical Exam Vital Signs Date Time Temp Pulse Resp B/P (MAP) Pulse Ox O2 Delivery O2 Flow Rate FiO2 03/29/17 15:48 67 20 111/67 96 Room Air 03/29/17 15:43 65 03/29/17 13:42 75 18 102/61 90 Room Air 03/29/17 11:58 98 Room Air 03/29/17 11:36 98 Room Air 03/29/17 11:35 78 03/29/17 11:33 98 Room Air 03/29/17 11:33 36.5 76 18 102/69 98 Room Air Physical Exam CONSTITUTIONAL/VITAL SIGNS: Reviewed / noted above. GENERAL: Non-toxic in appearance. INTEGUMENTARY: Warm, dry, and Fay. HEAD: Normocephalic. EYES: without scleral icterus or trauma. ENT/OROPHARYNX: clear and moist. LYMPHADENOPATHY/NECK: Is supple without lymphadenopathy or meningismus. RESPIRATORY: Lungs clear and equal. CARDIOVASCULAR: Regular rate and rhythm. GI/ABDOMEN: Soft and nontender. No organomegaly or pulsatile mass. No rebound or guarding. Normal bowel sounds. EXTREMITIES: Warm and well perfused. BACK: No CVA tenderness. NEUROLOGICAL: Chronic left-sided paresis. PSYCHIATRIC: normal affect. MUSCULOSKELETAL: Normally developed with good muscle tone. Medical Decision & Procedures ER Provider Diagnostic Interpretation: X ray results and stated below per my interpretation and radiology interpretation. CHEST ONE VIEW PORTABLE CLINICAL HISTORY: cp pt dyspnea COMPARISON STUDY: 02/07/2017 FINDINGS: Thoracic scoliosis. Prior median sternotomy. Considerable degenerative change right shoulder unchanged from the prior study. The lungs are considered clear. IMPRESSION: Chronic change. No acute process. The above report was generated using voice recognition software. It may contain grammatical, syntax or spelling errors. Electronically signed by: Malik Stacy M.D. 03/29/2017 12:26 PM Dictated Date/Time: 03/29/2017 12:25 PM Laboratory Results 03/29/17 11:00 03/29/17 11:00 Test 03/29/17 11:00 Red Blood Count 3.24 M/uL (4.7-6.1) Mean Corpuscular Volume 99.1 fL (80-100) Mean Corpuscular Hemoglobin 32.1 pg (25-34) Mean Corpuscular Hemoglobin Concent 32.4 g/dl (32-36) RDW Standard Deviation 54.6 fL (36.4-46.3) RDW Coefficient of Variation 15.0 % (11.5-14.5) Mean Platelet Volume 8.4 fL (7.4-10.4) Prothrombin Time 11.0 SECONDS (9.0-12.0) Prothromb Time International Ratio 1.0 (0.9-1.1) Activated Partial Thromboplast Time 30.3 SECONDS (21.0-31.0) Partial Thromboplastin Ratio 1.2 Anion Gap 7.0 mmol/L (3-11) Est Creatinine Clear Calc Drug Dose 98.2 ml/min Estimated GFR () 115.9 Estimated GFR (Non- 100.0 BUN/Creatinine Ratio 51.1 (10-20) Calcium Level 8.6 mg/dl (8.5-10.1) Total Bilirubin 2.1 mg/dl (0.2-1) Aspartate Amino Transf (AST/SGOT) 8 U/L (15-37) Alanine Aminotransferase (ALT/SGPT) 10 U/L (12-78) Alkaline Phosphatase 107 U/L (45-117) Total Creatine Kinase 88 U/L (39-308) Creatine Kinase MB 2.5 ng/ml (0.5-3.6) Creatine Kinase MB Ratio 2.8 (0-3.0) Troponin I < 0.015 ng/ml (0-0.045) Total Protein 5.8 gm/dl (6.4-8.2) Albumin 2.3 gm/dl (3.4-5.0) Globulin 3.5 gm/dl (2.5-4.0) Albumin/Globulin Ratio 0.7 (0.9-2) Laboratory results as stated above per my review. ECG Indication: chest pain Rate (beats per minute): 76 Rhythm: normal sinus Findings: no ectopy, other (no acute injury) ED Course 1146: Previous medical records were reviewed. The patient was evaluated in room C12B. A complete history and physical examination was performed. 1317: On reevaluation, the patient is resting comfortably. I discussed the results and findings with the patient's . She verbalized agreement of the treatment plan. The patient was discharged home. Medical Decision the differential was considered includes acute myocardial infarction, acute coronary syndrome, myocarditis, pericarditis, pericardial effusions /tamponade, esophageal perforation, thoracic aortic dissection, pulmonary embolism, pneumonia, pneumothorax, pancreatitis, shingles, acute cholecystitis, perforated abdominal viscus. This is an 81-year-old male who presents to the ED with a chief complaint of chest pain. The patient had some chest pain earlier. The tried 2 nitroglycerin without relief. The patient is currently not describing any chest pain. The patient is a hospice patient. He was accidentally sent here by the hospitalist nurse. The hospice nurse came to the hospital and saw the patient. The patient exam was unremarkable with exception of chronic abnormalities. The patient's laboratory studies including CBC, chest x-ray as well as troponin were unremarkable. The patient is felt to be stable for discharge. Medication Reconcilliation Current Medication List: was personally reviewed by me Blood Pressure Screening Patient's blood pressure: Normal blood pressure Impression Primary Impression: Substernal precordial chest pain Scribe Attestation The scribe's documentation has been prepared under my direction and personally reviewed by me in its entirety. I confirm that the note above accurately reflects all work, treatment, procedures, and medical decision making performed by me. Departure Information Dispostion Home / Self-Care Referrals Juventino Spencer M.D. (PCP) Patient Instructions My [facility] [address] Additional Instructions Follow-up with your doctor for further care and evaluation in 1-2 days. Return to the emergency department for worsening or new symptoms or any concerns. You have been examined and treated today on an emergency basis only. This is not a substitute for, or an effort to provide, complete comprehensive medical care. It is impossible to recognize and treat all injuries or illnesses in a single emergency department visit. It is therefore important that you follow up closely with your doctor. Call as soon as possible for an appointment.
--- NOTE | 2017-03-29 13:50 | Palliative Care Progress Note ---
Palliative Care Progress Note Date of Service Mar 29, 2017. Subjective Pt evaluation today including: conversation w/ patient, conversation w/ family This 81 year old male patient with a history of CVA x4, last one being hemorrhagic, and other comorbidities presented to the ED from home with c/o chest pain. He is a hospice patient. Was having chest pain, gave two nitro tabs without relief. called hospice who sent patient to ED as the had not yet picked up the comfort pack. Upon patient's arrival, the was torn between taking patient back home on hospice and going for "full treatment." I met with patient, patient's Teresita, son Daniel, another son, and field crop farmworker Alysia, in ED bay at the request of [facility] protective services social worker. Patient easily awakens to name call, is forgetful/confused but able to answer some questions. Now has no chest pain, wants to go home. is standing at bedside with a concerned look, tearful throughout conversation. We discussed patient's condition and goals of care. Teresita stated, "I want everything done. I want him to receive the care a 50 year old would get." We discussed his strokes and his current condition. Talked about how full treatment would involve labs, testing, and other possibly uncomfortable/ invasive measures; and even if we did find something was wrong, what treatment could we provide to make patient's quality of life improve? Family agreed that they would not want to hasten patient's or make him uncomfortable with futile care. Patient agreed. They made the decision to take him home on hospice. munitions worker in room and will work out details with our major case detective. printing table worker also present to give support to who admitted she was afraid to get the comfort pack. Thanks for involving me with this nice patient and his family. Please contact me with any further palliative needs.
[2017-03-29 15:48] VITALS: BP 111/67; PULSE 67; O2SAT 96
== END 2017-03-29 13:43 | disposition home or self-care (01) ==
LOC: EDBD 11:25 → C.EDC 11:26
DX: R07.2 Precordial pain (principal); I25.10 Atherosclerotic heart disease of native coronary artery without angina pectoris; E11.9 Type 2 diabetes mellitus without complications; E78.5 Hyperlipidemia, unspecified; Z79.899 Other long term (current) drug therapy